=== PATIENT | male | born 1940 | race Caucasian/White ===

== ENCOUNTER 2019-04-24 00:31 | Day surgery (SDC) | payer MEDICARE, SELFPAY ==
[2019-04-04 09:52] VITALS: BMI 27.8
[2019-04-24] VITALS (9 sets, daily range): BP systolic 127–159; BP diastolic 69–79; PULSE 64–81; RESP 12–18; TEMP 36.4–37; O2SAT 96–100
--- NOTE | ~2019-04-24 | XR_ITS ---
EXAMINATION: XR surgery orthopedic DATE: 04/24/2019 09:02 INDICATION: Arthrodesis of right foot. TECHNIQUE: 3 intraoperative spot fluoroscopic views of right foot were obtained. I was not present. F luoroscopy exposure time was 16 seconds. COMPARISON: Right foot radiographs 06/02/2018 FINDINGS: There is been interval placement of a screw through first proximal and distal phalanges. Th ere are chronic changes of osteotomy of first proximal phalanx with staple. There are chronic changes of arthrodesis procedure of second proximal interphalangeal joint with instrumentation. There are ne w changes of arthrodesis procedure of fourth proximal interphalangeal joint with instrumentation. IMPRESSION: 1. New arthrodesis procedures of first interphalangeal joint and fourth proximal interphalangeal join t. 2. Chronic arthrodesis procedure of second proximal interphalangeal joint. Reviewed, dictated and finalized at location A. ROOM DANCE INSTRUCTOR IMPRESSION: 1. New arthrodesis procedures of first interphalangeal joint and fourth proxima l interphalangeal joint. 2. Chronic arthrodesis procedure of second proximal interphalangeal joint.
[2019-04-24] MEDS: LACTATED RINGERS 1,000 ML 30 ML IV CONT ×2 (06:46→09:13)
--- NOTE | 2019-04-24 06:46 | WPDANESEPPF ---
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 Patient Data Age: 78 Gender: M Height: 1.8 m Weight: 109.8 kg Allergies Allergy/AdvReac Type Severity Reaction Status Date / Time hydrocodone [From Vicodin] Allergy Mild BLOATING,NA Verified 04/24/19 06:15 SUEA Home Medications Medication Instructions Recorded Confirmed Type amlodipine 10 mg PO DAILY 04/04/19 04/24/19 History omeprazole magnesium [Prilosec OTC] 20 mg PO DAILY 04/04/19 04/24/19 History ECG: SINUS RHYTHM DELAYED PRECORDIAL R/S TRANSITION BORDERLINE ST-T WAVE ABNORMALITY- LATERAL LEADS BASELINE ARTIFACT- I, II, III, AVR, AVL, AVF, V6 BORDERLINE ECG Patient hx anesthesia problems: none Family hx anesthesia problems: none [facility] Past Medical History Medical History (Updated 04/23/19 @ 14:00 by Lobo Capone DO) GERD (gastroesophageal reflux disease) Hypertension Social History Social History Smoking status: Never smoker Alcohol intake: current Anes - Eval Final PreProcedure Day of Procedure 04/24/19 06:46 Patient weight: obese Heart: regular rate and rhythm Lungs: clear to auscultation and normal air movement Airway: Mallampati scale class III Neurological: alert and oriented Last oral intake: >/= 8 hours ASA classification: III Emergent: no Anesthetic plan: proceed Anesthesia type and monitoring: general LMA and standard monitoring Informed Consent: The patient's anesthetic plan and its attendant risks and benefits were discussed with the patient/family/POA. Questions were solicited and answers provided to the satisfaction of the patient/family/POA.
[2019-04-24] MEDS: IBUPROFEN IV 800 MG/200 ML 800 MG/200 ML BAG 400 MG IVPB (06:47)
--- NOTE | 2019-04-24 07:21 | WPDHPUPDATE1 ---
History and Physical Update Update Date/Time: 04/24/19 07:21 History and Physical has been reviewed, including an updated exam of the patient. There are NO changes in the patient's condition. Risks, benefits, and alternatives have been discussed and questions answered. Patient agrees to proceed with procedure.
[2019-04-24] MEDS: ceFAZolin 2 GM/D5W 50 ML 2 GM/50 ML BAG IVPB (07:38)
--- NOTE | 2019-04-24 09:27 | P.OP_ITS ---
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 Informed consent given. Operative extremity marked. Patient received intravenous antibiotics. Patient brought to the operating room where underwent general anesthetic by anesthesia team. Positioned supine on operating room table. Time-out performed confirming the patient, site of the surgery and the plan. Right foot prepped and draped in usual sterile surgical fashion using ChloraPrep skin solution. Foot and ankle exsanguinated and calf tourniquet inflated to 225 mmHg. Curvilinear incision made over the hallux interphalangeal joint with a 15 blade knife. Hemostasis controlled electrocautery. Extensor tendon Z lengthened and dorsal capsulotomy performed. Interphalangeal joint pr epared with bone cutters and rongeur. Thorough irrigation. Joint reduced and provisionally pinned. Alignment checked with image intensification. Fixation achieved with a 4.0 mm fully threaded compression screw. Good fixation noted. Wound thoroughly irrigated. Alignment and placement of hardware checked with image intensification. Extensor tendon repaired with 000 Monocryl interrupted suture. Subcutaneous tissue repaired with 3 0 Monocryl interrupted suture and skin repaired 4 0 nylon interrupted suture. Fourth toe then addressed. Dorsal longitudinal incision made with 15 blade knife over the proximal interphalangeal joint. Hemostasis controlled with electrocautery. Dorsal capsulotomy performed in the medial and lateral collateral ligaments released. Joint prepared with bone cutter and rongeur or. Thorough irrigation done. Joint and reduced and fixed with the Arthrex Nitinol hammertoe implant. Size 14 mm used. Good fixation and alignment noted with image intensification. Wound irrigated and capsule closed with 3 Monocryl interrupted suture. Skin repaired with 4 nylon interrupted suture. Tourniquet released. Good capillary refill noted in the toes. Sterile dressing applied. Patient then woken from anesthesia, extubated and taken to the recovery room in stable condition. All sponge needle and instrument counts correct at the end the case. Implants: Arthrex 4.0 mm fully-threaded cannulated compression screw, 44 mm. Arthrex hammertoe implant, nitinol 14 mm. [facility] Surgeon: Robbie Gupta MD Worm Farmer: tiler's assistant Estimated blood loss (mL): 5 Drains: No Packing: No Pathology: none sent Complications: None Condition: stable Disposition: PACU
--- NOTE | 2019-04-24 10:17 | SUR.PHASEII ---
PHYSICAL THERAPY CALLED TO DO WALKER TRAINING WITH PATIENT.
--- NOTE | 2019-04-24 11:06 | SUR.PHASEII ---
PHYSICAL THERAPIST DILLON HERE TO INSTRUCT PT RE: WALKER.
== END 2019-04-24 11:30 | disposition home or self-care (01) ==
PROVIDERS: Visit Provider Orthopaedic Surgery
PROC: (CPT 28750; principal; 2019-04-24 07:30)
PROC: (CPT 28285; 2019-04-24 07:30)
DX: M20.5X1 Other deformities of toe(s) (acquired), right foot (principal); M20.41 Other hammer toe(s) (acquired), right foot; I10 Essential (primary) hypertension; K21.9 Gastro-esophageal reflux disease without esophagitis; E66.9 Obesity, unspecified; Z68.33 Body mass index [BMI] 33.0-33.9, adult
CPT/HCPCS: 28285; 28755; 12055; 76000; 97116; J0690; J1100; J1170; J1741; J2405; J2704; J3010; J7120

== ENCOUNTER 2020-03-22 10:37 | Emergency (ER) | payer MEDICARE, SELFPAY ==
[2020-03-22 10:49] VITALS: BP 172/79; PULSE 75; RESP 16; TEMP 36.8; O2SAT 96
--- NOTE | 2020-03-22 11:01 | ED.URI ---
HPI - URI/Sore Throat General Chief Complaint: Upper Respiratory Infection Stated Complaint: congestion/dizzy/eye irritation/runny nose Source: patient and RN notes reviewed Limitations: no limitations History of Present Illness HPI Narrative: The patient, a non-smoker/occ drinker, presents with drainage. Patient states he has a shorter, couple day history of bilateral eye drainage, associate with nasal congestion-which is associated with mild but, definite not unexpected loss of smell. No fever, S OB, significant cough, CP, V/D/dehydration, photophobia, foreign body, sore throat-he does have mild myalgias and headache with positional lightheadedness. He lives alone, and was recently traveling by a truck to [place]. Related Data Home Medications Medication Instructions Recorded Confirmed amlodipine 10 mg PO DAILY 04/04/19 03/22/20 omeprazole magnesium [Prilosec OTC] 20 mg PO DAILY 04/04/19 03/22/20 atorvastatin 10 mg PO DAILY 03/22/20 03/22/20 Allergies Allergy/AdvReac Type Severity Reaction Status Date / Time hydrocodone [From Vicodin] Allergy Mild BLOATING,NA Verified 06/03/19 08:36 BRIANNA Review of Systems Review of Systems: Narrative: General/Constitutional: No weight loss,fever Eyes: N0: Redness,discharge Ears/Nose/Throat: No: Epistaxis,ear discharge Respiratory: Denies: Hemoptysis Gastrointestinal: No Vomiting, Bleeding-rectal Skin: No Lumps, eruption Neurologic: No Focal Weakness,Sz Hematologic: Denies: Petechiae/Purpura Psychiatric: No: Suicida ideationl All Other Systems: Reviewed and Negative PMFSH Past Medical History Medical History (Updated 03/22/20 @ 12:08 by Radu Mcneil MD) GERD (gastroesophageal reflux disease) Hypertension Social History Social History Smoking status: Never smoker Alcohol intake: current Comments At time of signature, agree with nursing past medical, surgical, social and family history. There is no relevant family history pertinent to the presenting complaint Exam Narrative: Exam Narrative: General Appearance: Well appearing, Well nourished EYE: PERRLA, Conjunctiva injeted, bilateral Ears: Auditory canal normal, TM normal Nose: Rhinorrhea, Mucousal erythema Mouth/Throat: MM moist, Uvula midline, Pharyngeal erythema Neck: Supple, No adenopathy Respiratory: No respiratory distress, BS equal, CTA, decreased BS at bases with rare wheeze on forced expiration Cardiovascular: No JVD Musculoskeletal: Non tender, Normal strength Skin: Warm, Dry Neurological: A&O x3, CN II-XII intact Psychiatric: Normal mood, Normal affect Course Vital Signs Vital signs: Vital Signs Temperature 98.3 F 03/22/20 10:49 Pulse Rate 75 03/22/20 10:49 Respiratory Rate 16 03/22/20 10:49 Blood Pressure 172/79 H 03/22/20 10:49 Pulse Oximetry 96 03/22/20 10:49 Temperature 98.3 F 03/22/20 10:49 Pulse Rate 81 03/22/20 11:04 Respiratory Rate 16 03/22/20 10:49 Blood Pressure 167/72 H 03/22/20 11:04 Pulse Oximetry 96 03/22/20 10:49 MDM - URI/Sore Throat Lab Data Labs: Influenza A Screen Negative Reference Range: Negative Influenza B Screen Negative Reference Range: Negative Discharge Plan Discharge Clinical Impression: Influenza-like illness Conjunctivitis Qualifiers: Conjunctivitis type: acute Acute conjunctivitis type: unspecified Laterality: bilateral Qualified Code(s): H10.33 - Unspecified acute conjunctivitis, bilateral Patient Disposition: Home, Self-Care Condition: Stable Instructions: Antibiotic Form, Acute Bronchitis (ED) Prescriptions: New azithromycin 250 mg tablet See Rx Instructions .ROUTE .COMPLEX Qty: 6 RF: 0 codeine-guaifenesin 10-100 mg/5 mL liquid 7.5 ml PO Q6H PRN (Reason: cough) Qty: 118 RF: 0 sulf
[2020-03-22 11:02] VITALS: BP 183/67; PULSE 75
[2020-03-22 11:04] VITALS: BP 149/61; BP 167/72; PULSE 81
--- NOTE | 2020-03-22 11:47 | PC.NURSE ---
1050-When pt stood up to go to room from triage, he was very unsteady and legs weak. Pt had to lean against wall for a moment. Gait was more steady after a moment. Stand by assist given to patient and he was taken to room without incident.
== END 2020-03-22 11:29 | disposition home or self-care (01) ==
PROVIDERS: Emergency Provider Emergency Medicine; PCP Internal Medicine
DX: J11.1 Influenza due to unidentified influenza virus with other respiratory manifestations (principal); H10.33 Unspecified acute conjunctivitis, bilateral; Z20.828 Contact with and (suspected) exposure to other viral communicable diseases; K21.9 Gastro-esophageal reflux disease without esophagitis; I10 Essential (primary) hypertension
CPT/HCPCS: 87804; 99213; G0463

== ENCOUNTER 2020-03-22 11:26 | Outpatient (NON) | payer MEDICARE, SELFPAY ==
[2020-03-22 23:58] LABS: SARS-CoV-2 RNA PCR Positive
== END 2020-03-22 11:27 ==
PROVIDERS: PCP Internal Medicine; Visit Provider Emergency Medicine
DX: U07.1 COVID-19 (principal)
CPT/HCPCS: 87635; 87804; 99213; C9803; G0463; U0003

== ENCOUNTER 2020-03-23 16:37 | Inpatient (IN) | payer MEDICARE, SELFPAY ==
[2020-03-23] VITALS (9 sets, daily range): BP systolic 120–148; BP diastolic 68–90; PULSE 62–88; RESP 17–26; TEMP 37.9–38.1; O2SAT 92–96
--- NOTE | ~2020-03-23 | XR_ITS ---
EXAMINATION: XR chest 1V portable INDICATION: Cough and shortness of breath TECHNIQUE: Portable AP chest at 1749 hours COMPARISON: 03/08/2018 FINDINGS: There are minimal airspace opacities of the lung bases. No pleural effusion or pneumothorax is identified. The cardiomediastinal silhouette is normal. IMPRESSION: 1. Minimal bibasilar airspace opacities, consistent with atelectasis versus pneumonia. Reviewed, dictated and finalized at location A. PING ROOM CLEANER IMPRESSION: 1. Minimal bibasilar airspace opacities, consistent with atelectasis versus pne umonia.
--- NOTE | ~2020-03-23 | CT_ITS ---
EXAMINATION: CT brain wo con INDICATION: Weakness, fall COMPARISON: 05/28/2011 TECHNIQUE: Standard unenhanced head CT. The dose-length product (DLP) was 681.00 mGy-cm. The mA was a djusted according to patient size. Iterative reconstruction technique was employed. FINDINGS: There is no acute intraparenchymal hemorrhage. No evidence of mass lesion. No evidence of a cute infarction. There is mild periventricular and subcortical hypodensity probably related to small vessel ischemic disease. There is mild prominence of the sulci and ventricles related to cerebral atr ophy. Intracranial calcified cerebral atherosclerosis is noted. There are no extra-axial collections. There is no mass effect or midline shift. The orbits and soft tissues are unremarkable. There is ch ronic pansinusitis with slight improvement in the left maxillary sinus. Sinus surgical changes are ag ain noted. IMPRESSION: 1. No acute intracranial abnormality. 2. Chronic sinusitis. Reviewed, dictated and finalized at location A. R SALES ASSESSOR
--- NOTE | ~2020-03-23 | XR_ITS ---
EXAMINATION: XR chest 1V portable INDICATION: COVID 19 pneumonia TECHNIQUE: Portable AP chest at 1456 hours COMPARISON: 03/23/2020 FINDINGS: There are diffuse opacities in all lung zones with interval worsening. No pleural effusion or pneumothorax is identified. The cardiomediastinal silhouette is normal. IMPRESSION: 1. Diffuse lung disease with interval worsening, consistent with pneumonia and/or pulmonary edema and /or acute respiratory distress syndrome (ARDS). Reviewed, dictated and finalized at location A. REMOVER IMPRESSION: 1. Diffuse lung disease with interval worsening, consistent with pneumonia and/ or pulmonary edema and/or acute respiratory distress syndrome (ARDS).
--- NOTE | 2020-03-23 17:29 | ED.SOB ---
HPI - SOB/Dyspnea General Chief Complaint: Shortness of Breath/Dyspnea Stated Complaint: SOB covid + swab past 48-72 hours Time Seen by Provider: 03/23/20 17:05 Source: patient and EMS Mode of arrival: EMS Limitations: no limitations History of Present Illness HPI Narrative: Patient is a 79-year-old male who presents for evaluation of weakness in the setting of recent coronavirus diagnosis. Patient reports he has had cough without shortness of breath or chest pain. He reports weakness and that he fell today when he lost his balance. He states he is having trouble walking. He has been tolerating oral intake. He has lost his sense of taste. Patient reports fever, denies chills. He reports myalgias. He denies any abdominal pain, diarrhea. Pt denies hitting his head. He denies any current chest pain, shortness of breath or prodromal type symptoms prior to the fall. Related Data Home Medications Medication Instructions Recorded Confirmed amlodipine 10 mg PO DAILY 04/04/19 03/22/20 omeprazole magnesium [Prilosec OTC] 20 mg PO DAILY 04/04/19 03/22/20 atorvastatin 10 mg PO DAILY 03/22/20 03/22/20 Allergies Allergy/AdvReac Type Severity Reaction Status Date / Time hydrocodone [From Vicodin] Allergy Mild BLOATING,NA Verified 06/03/19 08:36 BRIANNA Review of Systems Review of Systems: Narrative: CONSTITUTIONAL: Reports intermittent fever and chills EYES: Denies visual changes, redness, or discharge. ENT: Reports rhinorrhea and congestion CARDIOVASCULAR: Denies chest pain, palpitations, or edema. RESPIRATORY: Denies cough or dyspnea. GASTROINTESTINAL: Denies abdominal pain, nausea, vomiting, or diarrhea. GENITOURINARY: Denies dysuria or hematuria. SKIN: Denies rash or itching. MUSCULOSKELETAL: Denies back pain, joint pain, reports myalgias NEUROLOGIC: Denies headache, numbness, reports feeling diffusely weak PMFSH Past Medical History Medical History (Updated 03/23/20 @ 22:11 by Diana Garay MD) GERD (gastroesophageal reflux disease) Hypertension Social History Social History Smoking status: Never smoker Alcohol intake: current Exam Narrative: Exam Narrative: GENERAL: Awake, alert, conversant HEAD: Normocephalic, atraumatic. EYES: PERRLA and EOMI. ENT: Nares clear, no rhinorrhea or epistaxis. Mucous membranes moist. NECK: Supple. CHEST: No respiratory distress, breathing even and non labored, coarse respirations bilaterally HEART: Regular rate, sinus rhythm ABDOMEN:Non distended, non tender EXTREMITIES: Normal range of motion. No edema. SKIN: Warm, dry, no rash. NEURO:No focal deficits. Alert and oriented x3 Course Vital Signs Vital signs: Vital Signs Temperature 37.9 C H 03/23/20 16:52 Pulse Rate 88 03/23/20 16:52 Respiratory Rate 22 H 03/23/20 16:52 Blood Pressure 148/90 H 03/23/20 16:52 Pulse Oximetry 92 03/23/20 16:52 Temperature 38.1 C H 03/23/20 17:06 Pulse Rate 88 03/23/20 20:32 Respiratory Rate 19 03/23/20 20:00 Blood Pressure 148/90 H 03/23/20 16:52 Pulse Oximetry 96 03/23/20 20:00 MDM - SOB/Dyspnea MDM Narrative Medical decision making narrative: Patient presented for evaluation of weakness, fall today in the setting of Covid. At the time of initial assessment, ABCs are intact and vital signs are notable for mild tachypnea, borderline hypoxemia, patient is febrile. Laboratory results are reassuring. No severe electrolyte derangement. Patient is lymphopenic. No acute kidney injury. Evidence of bilateral viral pneumonia on chest x-ray, this does not warrant any antibiotics. Try to ambulate patient in the emergency department and patient required assistance with both attempts. He is quite unsteady on his feet. I discussed with patient discharged home and he has no family or friend that is able to stay and assist him. At this point from a respiratory standpoint he he is not requiring any supplemen
[2020-03-23 17:45] LABS: Basophils Percent Auto 0.5 % (0.2-1.2); Eosinophils Absolute Auto 0.1 K/mm3 (0-0.3); Eosinophils Percent Auto 0.7 % (0-4.4); Hematocrit 43.2 % (42.0-52.0); Hemoglobin 14.8 g/dL (14.0-18.0); Immature Granulocyte Absolute 0.03 K/mm3 (0.00-0.031); Immature Granulocyte Percent A 0.3 % (0-0.5); Lymphocytes Absolute Auto 0.79 K/mm3 (0.9-3.2); Lymphocytes Percent Auto 9.1 % (18.3-44.2); Mean Corpuscular HGB Conc 34.3 g/dl (32-36); Mean Corpuscular Hemoglobin 29.7 pg (26-34); Mean Corpuscular Volume 86.6 fl (80-100); Mean Platelet Volume 9.7 fl (7.4-10.4); Monocytes Absolute Auto 0.8 K/mm3 (0.1-0.6); Monocytes Percent Auto 9.4 % (2.6-8.5); Neutrophils Absolute Auto 6.9 K/mm3 (1.3-6.7); Platelet Count Result 201 k/mm3 (150-375); Red Blood Count 4.99 M/mm3 (4.6-6.20); Red Cell Distribution Width 12.5 % (11.5-14.5); White Blood Count 8.7 K/mm3 (4.5-10.0)
[2020-03-23 17:54] LABS: Alanine Aminotransferase 27 U/L (4-50); Albumin Level 4.3 g/dL (3.5-5.1); Alkaline Phosphatase 74 U/L (38-126); Anion Gap 5 mmol/L (8-16); Aspartate Amino Transferase 24 U/L (17-59); Blood Urea Nitrogen 18 mg/dL (9-20); Calcium 9.4 mg/dL (8.4-10.2); Carbon Dioxide 29 mmol/L (22-30); Chloride 100 mmol/L (98-107); Estimated Glomerular Filt Rate > 60; Glucose 115 mg/dL (75-110); Sodium 134 mmol/L (137-145)
[2020-03-23] MEDS: ACETAMINOPHEN 500 MG TABLET 1000 MG PO (18:21)
[2020-03-23 18:33] LABS: CRP 1.2 mg/dL (<1.0); Creatine Kinase 76 U/L (55-170)
[2020-03-23 18:42] LABS: Troponin I < 0.012 ng/mL (0.000-0.034)
--- NOTE | 2020-03-23 19:04 | PC.NURSE ---
patient resting on stretcher. additional labs drawn. waiting for all tests to be resulted. alert and oriented. wants to rest. feel frustrated that he feels foggy and weak.
--- NOTE | 2020-03-23 19:11 | PC.NURSE ---
patient's tests all resulted. will ask for urine specimen. waiting for further orders from provider vs disposition.
[2020-03-23 19:14] LABS: Prothrombin Time 14.1 Seconds (11.1-14.7)
[2020-03-23 19:15] LABS: Partial Thromboplastin Time 26.4 SECONDS (22.3-36.8)
--- NOTE | 2020-03-23 19:53 | PC.NURSE ---
patient reminded we need a urine specimen soon or we have to straight cath him. c/o back pain from stretcher. patient stood at bedside. bed changed. blanket under patient with sheet. back in bed. placed back on monitors. new warm blanket given. patient advised he has 10 minutes to provide urine. verbalizes understanding. has call light in reach. side rails up x 2.
--- NOTE | 2020-03-23 20:44 | PC.NURSE ---
resting on stretcher. straight cath done. urine pending.
[2020-03-23 20:46] LABS: Add Urine Microscopic? YES; Appearance Urine Clear (Clear); Bilirubin Urine Negative (Negative); Blood Urine Negative (Negative); Color Urine Yellow (Yellow); Glucose Urine UA Negative (Negative); Ketones Urine Negative (Negative); Leukocyte Esterase Ur Negative LEU/UL (Negative); Mucus Urine Rare /lpf; Nitrate Urine Negative (Negative); Protein Urine 1+ mg/dL (Negative); RBC Urine 0-2 /hpf (0-2); Specific Grav Ur 1.023 (1.001-1.035); WBC Urine 0-3 /hpf
--- NOTE | 2020-03-23 22:22 | PC.NURSE ---
additional orders placed. patient to be admitted for increased weakness and Covid pneumonia. lives alone. patient will be put back on phototypesetting equipment monitor. keeps removing.
--- NOTE | 2020-03-23 22:24 | ECG_ITS ---
Measurements Intervals [place] Rate: 66 P: 82 PA: 179 QRS: 3 QRSD: 109 T: 33 QT: 366 QTc: 384 Interpretive Statements SINUS RHYTHM NONSPECIFIC T-WAVE ABNORMALITY- HIGH LATERAL LEADS BASELINE ARTIFACT- I, II, AVR, AVF, V1, V3 BORDERLINE ECG Electronically Signed On 03-24-2020 7:02:44 ECONOMIC RESEARCH ANALYST by Nestor Lai D.O.
--- NOTE | 2020-03-23 22:35 | PC.NURSE ---
patient medicated. placed back on monitor. patient given lunch box.
[2020-03-24] VITALS (9 sets, daily range): BP systolic 125–149; BP diastolic 55–63; PULSE 64–67; RESP 18–20; TEMP 36.1–37; O2SAT 94–100; BMI 32.8
--- NOTE | 2020-03-24 00:03 | ADMGEN ---
This patient, Ivan Oconnor, was admitted to [facility] Surg Room 330-01. Patient/family oriented to hospital policies and general routines including ID bracelet, bed and alarms, visiting hours, pain management, procedures, bathroom and other care routines, personal items, smoking policy, room service/diet, and visiting hours. Information on how to activate the Rapid Response Team has been discussed. Patient/Family are encouraged to report perceived risks to care and to ask questions if they do not understand what they are told or what they should do.
--- NOTE | 2020-03-24 00:15 | PM.IMHP ---
H&P: HPI History of Present Illness Date/Time: 03/24/20 00:15 Chief complaint: Weakness, Covid 19 viral pneumonia Narrative: This is a pleasant 79 year old male with known history of HTN, GERD, and hyperlipidemia who is known to live alone and presented to the hospital with a complaint of generalized weakness. He was just diagnosed with COVID-19 two days ago. Since then he has had a sporadic dry cough and mild shortness of breath. He did fall yesterday. He did not lose consciousness or suffer head trauma. Associated symptoms include fever, myalgias, and diarrhea. He has not had any nausea, vomiting, dysuria, hematuria, rectal bleeding, or LE edema. In the ER tonight the patient has required to be put on 1L of oxygen via NC to maintain his sats. No other complaints. Review of Systems Review of Systems: All systems reviewed & are unremarkable except as noted in HPI and below PMFSH Past Medical History Medical History GERD (gastroesophageal reflux disease) Hypertension Family History Family History Unknown Unknown family medical history Social History Social History Smoking status: Never smoker Alcohol intake: current Drinks per week: 5 Substance use: never Substance use type: does not use Gender identity (if verbalized by the patient): Male Spiritual care concerns: No Comments past surgical history reviewed and noncontributory. Meds Home Medications and Allergies Home Medications Medication Instructions Recorded Confirmed Type amlodipine 10 mg PO DAILY 04/04/19 03/24/20 History omeprazole magnesium [Prilosec OTC] 20 mg PO DAILY 04/04/19 03/24/20 History albuterol sulfate [Ventolin HFA] 2 puff INHALATION QID PRN #8.5 gm 03/22/20 03/24/20 Rx atorvastatin 10 mg PO DAILY 03/22/20 03/24/20 History codeine-guaifenesin 7.5 ml PO Q6H PRN #118 ml 03/22/20 03/24/20 Rx sulfacetamide sodium [Bleph-10] 2 drp OPHTHALMIC (EYE) Q4H #5 ml 03/22/20 03/24/20 Rx acetaminophen [Mapap 650 mg PO Q4H PRN 30 Days tablet 04/01/20 Rx (acetaminophen)] dexamethasone 6 mg PO DAILY #5 tablet 04/01/20 Rx Allergies Allergy/AdvReac Type Severity Reaction Status Date / Time hydrocodone [From Vicodin] Allergy Mild BLOATING,NA Verified 03/24/20 01:01 SUEA Vital Signs Vital Signs - 24 hr 03/23/20 16:52 03/23/20 17:06 03/23/20 17:41 Temperature 37.9 C H 38.1 C H Pulse Rate 88 Respiratory Rate 22 H Blood Pressure 148/90 H Pulse Oximetry 92 96 03/23/20 19:57 03/23/20 20:00 03/23/20 20:27 Temperature Pulse Rate 68 66 62 Respiratory Rate 19 19 Blood Pressure Pulse Oximetry 96 96 03/23/20 20:32 03/23/20 22:33 03/23/20 23:18 Temperature Pulse Rate 88 79 66 Respiratory Rate 26 H 17 Blood Pressure 120/68 Pulse Oximetry 93 03/24/20 00:05 Temperature Pulse Rate Respiratory Rate Blood Pressure Pulse Oximetry 94 Exam Const: General: cooperative, healthy appearing, no acute distress, alert and awake Nutritional Appearance: well nourished Orientation/consciousness: patient oriented x3 HENMT: Head: normal to inspection General nose exam: Normal external nose present Face and sinus: normal facial exam Mouth: Yes Normal oral and palatal mucosa present and Yes oropharynx normal Eyes: Pupils: Equal, round and reactive pupils present EOM: EOMs intact bilaterally Neck: Neck: supple and no JVD Thyroid: thyroid normal Lymphatic: lymphadenopathy not noted Resp: Effort & Inspection: normal respiratory effort Auscultation: clear to auscultation bilaterally Cardio: Rate: regular rate Rhythm: regular rhythm Heart sounds: no murmurs GI: Inspection: normal to inspection Auscultation: normal bowel sounds Skin: General skin exam: normal color and no rashes or lesions noted Neuro: General: patient or
[2020-03-24] MEDS: ENOXAPARIN 40 MG/0.4 ML SYRINGE SUB-Q ×2 (09:56→20:26)
--- NOTE | 2020-03-24 17:01 | PM.IMPN ---
Progress Note: A&P Assessment and Plan (1) Weakness: Code(s): R53.1 - Weakness Status: Acute Assessment and Plan: Likely secondary to deconditioning. The patient has been placed in observation status. 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 and was tested for COVID-19 2 days ago prior to coming to emergency depart and he was positive, he came to emergency department because he had fell, chest x-ray was done in the ER showed possibly pneumonia and CT scan of the head was negative for any acute injury, emergency department patient was desaturating at 88% on room air and patient was started on 1 L of oxygen however currently is requiring 3 L, denies any fever or chills, patient was started on dexamethasone from ER, start the patient on Zithromax and Rocephin for possible pneumonia will continue to monitor (2) COVID-19: Code(s): U07.1 - COVID-19 Status: Acute Assessment and Plan: Plan is above (3) Fall: Qualifiers: Encounter type: initial encounter Qualified Code(s): W19.XXXA - Unspecified fall, initial encounter Code(s): W19.XXXA - Unspecified fall, initial encounter Status: Acute Assessment and Plan: Will have a PT OT evaluate the patient (4) GERD (gastroesophageal reflux disease): Qualifiers: Esophagitis presence: esophagitis presence not specified Qualified Code(s): K21.9 - Gastro-esophageal reflux disease without esophagitis Code(s): K21.9 - Gastro-esophageal reflux disease without esophagitis Status: Acute Assessment and Plan: Will continue PPI (5) Hypertension: Qualifiers: Hypertension type: unspecified Qualified Code(s): I10 - Essential (primary) hypertension Code(s): I10 - Essential (primary) hypertension Status: Acute Assessment and Plan: Continue home regimen and monitor (6) Hypoxia: Code(s): R09.02 - Hypoxemia Status: Acute Assessment and Plan: Currently patient is on 3 L oxygen most likely secondary to pneumonia and COVID-19 will monitor Subjective Date/time seen: 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 and was tested for COVID-19 2 days ago prior to coming to emergency depart and he was positive, he came to emergency department because he had fell, chest x-ray was done in the ER showed possibly pneumonia and CT scan of the head was negative for any acute injury, emergency department patient was desaturating at 88% on room air and patient was started on 1 L of oxygen however currently is requiring 3 L, denies any fever or chills, patient was started on dexamethasone from ER, start the patient on Zithromax and Rocephin for possible pneumonia will continue to monitor Review of Systems Review of Systems: All systems reviewed & are unremarkable except as noted in HPI and below Exam Narrative: Exam Narrative: Patient is comfortable, NAD HEENT: eyes are clear and none icteric LUNGS: Normal respiratory effort ABD: Moderately obese distended Lower extremities: no edema SKIN: nonjaundiced Neuro: grossly intact. Objective Data Vital Signs Vital Signs: Vital Signs - 24 hr 03/23/20 17:06 03/23/20 17:41 03/23/20 19:57 Temperature 100.6 F H Pulse Rate 68 Respiratory Rate 19 Blood Pressure Pulse Oximetry 96 96 03/23/20 20:00 03/23/20 20:27 03/23/20 20:32 Temperature Pulse Rate 66 62 88 Respiratory Rate 19 Blood Pressure Pulse Oximetry 96 03/23/20 22:33 03/23/20 23:18 03/24/20 00:05 Temperature Pulse Rate 79 66 Respiratory Rate 26 H 17 Blood Pressure 120/68 Pulse Oximetry 93 94 03/24/20 00:10 03/24/20 00:21 03/24/20 06:00 Temperature 98.6 F 97 F L Pulse Rate 65 67 Respiratory Rate 18 20 Blood Pressure 127/55 L 149/58 H Pulse Oximetry
[2020-03-25] VITALS (8 sets, daily range): BP systolic 130–148; BP diastolic 57–90; PULSE 63–75; RESP 14–20; TEMP 36.1–37; O2SAT 90–100
[2020-03-25 08:15] LABS: Basophils Percent Auto 0.2 % (0.2-1.2); Immature Granulocyte Absolute 0.02 K/mm3 (0.00-0.031); Immature Granulocyte Percent A 0.2 % (0-0.5); Lymphocytes Absolute Auto 0.79 K/mm3 (0.9-3.2); Lymphocytes Percent Auto 8.7 % (18.3-44.2); Mean Corpuscular HGB Conc 34.1 g/dl (32-36); Mean Corpuscular Hemoglobin 30.1 pg (26-34); Mean Corpuscular Volume 88.4 fl (80-100); Mean Platelet Volume 9.6 fl (7.4-10.4); Monocytes Absolute Auto 0.6 K/mm3 (0.1-0.6); Monocytes Percent Auto 6.4 % (2.6-8.5); Neutrophils Absolute Auto 7.6 K/mm3 (1.3-6.7); Neutrophils Percent Auto 84.5 % (45.5-73.1); Platelet Count Result 213 k/mm3 (150-375); Red Blood Count 4.98 M/mm3 (4.6-6.20); Red Cell Distribution Width 12.5 % (11.5-14.5); White Blood Count 9.1 K/mm3 (4.5-10.0)
[2020-03-25 08:27] LABS: Alanine Aminotransferase 33 U/L (4-50); Alkaline Phosphatase 69 U/L (38-126); Anion Gap 7 mmol/L (8-16); Aspartate Amino Transferase 27 U/L (17-59); Bilirubin,Total 0.5 mg/dL (0.2-1.3); Blood Urea Nitrogen 21 mg/dL (9-20); Carbon Dioxide 30 mmol/L (22-30); Chloride 99 mmol/L (98-107); Estimated CRCL calculation 57 ml/min; Estimated Glomerular Filt Rate 59; Glucose 123 mg/dL (75-110); Potassium 3.8 mmol/L (3.4-5.0); Sodium 136 mmol/L (137-145)
[2020-03-25] MEDS: ENOXAPARIN 40 MG/0.4 ML SYRINGE SUB-Q ×2 (09:34→20:00)
[2020-03-25] MEDS: ATORVASTATIN 10 MG TABLET PO (09:34)
[2020-03-25] MEDS: amLODIPine BESYLATE 5 MG TABLET 10 MG PO (09:34)
[2020-03-25] MEDS: PANTOPRAZOLE 40 MG TABLET PO (09:35)
--- NOTE | 2020-03-25 16:57 | PM.IMPN ---
Progress Note: A&P Assessment and Plan (1) Weakness: Code(s): R53.1 - Weakness Status: Acute Assessment and Plan: Likely secondary to deconditioning. The patient has been placed in observation status. 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 and was tested for COVID-19 2 days ago prior to coming to emergency depart and he was positive, he came to emergency department because he had fell, chest x-ray was done in the ER showed possibly pneumonia and CT scan of the head was negative for any acute injury, emergency department patient was desaturating at 88% on room air and patient was started on 1 L of oxygen however currently is requiring 3 L, denies any fever or chills, patient was started on dexamethasone from ER, start the patient on Zithromax and Rocephin for possible pneumonia will continue to monitor, today patient remains clinically stable he does not have any fever and only requiring 3 L of oxygen, will repeat x-ray tomorrow in the morning, if there is no worsening of the x-ray, no fever patient does not require any more oxygen than 3-5 L will do the home O2 eval and possibly discharge the patient tomorrow (2) COVID-19: Code(s): U07.1 - COVID-19 Status: Acute Assessment and Plan: Plan is above (3) Fall: Qualifiers: Encounter type: initial encounter Qualified Code(s): W19.XXXA - Unspecified fall, initial encounter Code(s): W19.XXXA - Unspecified fall, initial encounter Status: Acute Assessment and Plan: Will have a PT OT evaluate the patient (4) GERD (gastroesophageal reflux disease): Qualifiers: Esophagitis presence: esophagitis presence not specified Qualified Code(s): K21.9 - Gastro-esophageal reflux disease without esophagitis Code(s): K21.9 - Gastro-esophageal reflux disease without esophagitis Status: Acute Assessment and Plan: Will continue PPI (5) Hypertension: Qualifiers: Hypertension type: unspecified Qualified Code(s): I10 - Essential (primary) hypertension Code(s): I10 - Essential (primary) hypertension Status: Acute Assessment and Plan: Continue home regimen and monitor (6) Hypoxia: Code(s): R09.02 - Hypoxemia Status: Acute Assessment and Plan: Currently patient is on 3 L oxygen most likely secondary to pneumonia and COVID-19 will monitor Subjective Date/time seen: 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 and was tested for COVID-19 2 days ago prior to coming to emergency depart and he was positive, he came to emergency department because he had fell, chest x-ray was done in the ER showed possibly pneumonia and CT scan of the head was negative for any acute injury, emergency department patient was desaturating at 88% on room air and patient was started on 1 L of oxygen however currently is requiring 3 L, denies any fever or chills, patient was started on dexamethasone from ER, start the patient on Zithromax and Rocephin for possible pneumonia will continue to monitor, today patient remains clinically stable he does not have any fever and only requiring 3 L of oxygen, will repeat x-ray tomorrow in the morning, if there is no worsening of the x-ray, no fever patient does not require any more oxygen than 3-5 L will do the home O2 eval and possibly discharge the patient tomorrow Review of Systems Review of Systems: All systems reviewed & are unremarkable except as noted in HPI and below Exam Narrative: Exam Narrative: Patient is comfortable, NAD HEENT: eyes are clear and none icteric LUNGS: Normal respiratory effort ABD: Moderately obese distended Lower extremities: no edema SKIN: nonjaundiced Neuro: grossly intact. Objective Data Vital Signs Vital Signs: Vital Signs - 24 hr 03/24/20
[2020-03-26] VITALS (13 sets, daily range): BP systolic 113–144; BP diastolic 44–59; PULSE 64–86; RESP 18–22; TEMP 36.2–37.2; O2SAT 82–94
[2020-03-26 06:33] LABS: Basophils Percent Auto 0.3 % (0.2-1.2); Eosinophils Percent Auto 0.3 % (0-4.4); Hematocrit 41.6 % (42.0-52.0); Hemoglobin 14.3 g/dL (14.0-18.0); Immature Granulocyte Absolute 0.03 K/mm3 (0.00-0.031); Immature Granulocyte Percent A 0.4 % (0-0.5); Lymphocytes Absolute Auto 0.88 K/mm3 (0.9-3.2); Lymphocytes Percent Auto 12.1 % (18.3-44.2); Mean Corpuscular HGB Conc 34.4 g/dl (32-36); Mean Corpuscular Volume 87.4 fl (80-100); Mean Platelet Volume 9.5 fl (7.4-10.4); Monocytes Absolute Auto 0.7 K/mm3 (0.1-0.6); Monocytes Percent Auto 9.9 % (2.6-8.5); Neutrophils Absolute Auto 5.6 K/mm3 (1.3-6.7); Platelet Count Result 182 k/mm3 (150-375); Red Blood Count 4.76 M/mm3 (4.6-6.20); Red Cell Distribution Width 12.2 % (11.5-14.5); White Blood Count 7.3 K/mm3 (4.5-10.0)
[2020-03-26 06:55] LABS: Potassium 3.7 mmol/L (3.4-5.0)
[2020-03-26 06:58] LABS: Alanine Aminotransferase 49 U/L (4-50); Albumin Level 3.6 g/dL (3.5-5.1); Alkaline Phosphatase 67 U/L (38-126); Anion Gap 7 mmol/L (8-16); Aspartate Amino Transferase 36 U/L (17-59); Bilirubin,Total 0.7 mg/dL (0.2-1.3); Blood Urea Nitrogen 19 mg/dL (9-20); Calcium 8.5 mg/dL (8.4-10.2); Carbon Dioxide 28 mmol/L (22-30); Chloride 99 mmol/L (98-107); Estimated CRCL calculation 68 ml/min; Estimated Glomerular Filt Rate > 60; Glucose 121 mg/dL (75-110); Sodium 134 mmol/L (137-145)
[2020-03-26] MEDS: ATORVASTATIN 10 MG TABLET PO (09:57)
[2020-03-26] MEDS: ENOXAPARIN 40 MG/0.4 ML SYRINGE SUB-Q ×2 (09:57→20:12)
[2020-03-26] MEDS: PANTOPRAZOLE 40 MG TABLET PO (09:57)
[2020-03-26] MEDS: amLODIPine BESYLATE 5 MG TABLET 10 MG PO (09:57)
--- NOTE | 2020-03-26 15:06 | HOMEO2EVAL ---
Home Oxygen Evaluation RC: Home Oxygen (O2) Evaluation Start: 03/26/20 09:32 Freq: ONCE Status: Active Protocol: RPE Activity Type Activity Date Activity User E-Sign Co-Sign Detail Recorded Client Recorded Date Recorded By Document 03/26/20 13:00 [email or web address] [email or web address] 03/26/20 15:00 DJO Document 03/26/20 13:03 [email or web address] [email or web address] 03/26/20 15:00 DJO Document 03/26/20 13:05 [email or web address] [email or web address] 03/26/20 15:00 DJO Document 03/26/20 13:08 [email or web address] [email or web address] 03/26/20 15:00 DJO Document 03/26/20 13:10 [email or web address] [email or web address] 03/26/20 15:00 DJO Document 03/26/20 13:15 [email or web address] [email or web address] 03/26/20 15:00 DJO 03/26/20 03/26/20 03/26/20 13:00 13:03 13:05 Home O2 Evaluation Test Phase Resting Resting Exercise Oxygen Delivery Room Air Nasal Cannula Nasal Cannula Oxygen Flow Rate (L/min) 1 1 Pulse Oximetry (90-100 %) 87 L 91 82 L Home Oxygen Evaluation Comments Treatment Charges O2 Evaluation 03/26/20 03/26/20 03/26/20 13:08 13:10 13:15 Home O2 Evaluation Test Phase Exercise Exercise Resting Oxygen Delivery Nasal Cannula Nasal Cannula Nasal Cannula Oxygen Flow Rate (L/min) 2 3 3 Pulse Oximetry (90-100 %) 87 L 90 92 Home Oxygen Evaluation Comments PT REQUAIRES 1 L REST AND 3L EXERTION Treatment Charges
--- NOTE | 2020-03-26 15:06 | PCRCNOTE ---
HOME O2 EVAL COMPLETED. PT REQUIRES 1 L REST AND 3 L WITH EXERTION. WILL BRING A TANK FOR TRANSPORT HOME. PT TO CALL [facility] WHEN HE ARRIVES HOME.
--- NOTE | 2020-03-26 17:53 | PM.IMPN ---
Progress Note: A&P Assessment and Plan (1) Weakness: Code(s): R53.1 - Weakness Status: Acute Assessment and Plan: Likely secondary to deconditioning. The patient has been placed in observation status. 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 and was tested for COVID-19 2 days ago prior to coming to emergency depart and he was positive, he came to emergency department because he had fell, chest x-ray was done in the ER showed possibly pneumonia and CT scan of the head was negative for any acute injury, emergency department patient was desaturating at 88% on room air and patient was started on 1 L of oxygen however currently is requiring 3 L, denies any fever or chills, patient was started on dexamethasone from ER, start the patient on Zithromax and Rocephin for possible pneumonia will continue to monitor, today patient remains clinically stable he does not have any fever and only requiring 3 L of oxygen, today patient clinically symptoms remained stable with no fever and requiring only 3 L of oxygen however patient is quite weak and difficult to ambulate patient lives home alone, will continue PT OT, will continue to monitor and further recommendation to follow (2) COVID-19: Code(s): U07.1 - COVID-19 Status: Acute Assessment and Plan: Plan is above (3) Fall: Qualifiers: Encounter type: initial encounter Qualified Code(s): W19.XXXA - Unspecified fall, initial encounter Code(s): W19.XXXA - Unspecified fall, initial encounter Status: Acute Assessment and Plan: Will have a PT OT evaluate the patient (4) GERD (gastroesophageal reflux disease): Qualifiers: Esophagitis presence: esophagitis presence not specified Qualified Code(s): K21.9 - Gastro-esophageal reflux disease without esophagitis Code(s): K21.9 - Gastro-esophageal reflux disease without esophagitis Status: Acute Assessment and Plan: Will continue PPI (5) Hypertension: Qualifiers: Hypertension type: unspecified Qualified Code(s): I10 - Essential (primary) hypertension Code(s): I10 - Essential (primary) hypertension Status: Acute Assessment and Plan: Continue home regimen and monitor (6) Hypoxia: Code(s): R09.02 - Hypoxemia Status: Acute Assessment and Plan: Currently patient is on 3 L oxygen most likely secondary to pneumonia and COVID-19 will monitor Subjective Date/time seen: 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 and was tested for COVID-19 2 days ago prior to coming to emergency depart and he was positive, he came to emergency department because he had fell, chest x-ray was done in the ER showed possibly pneumonia and CT scan of the head was negative for any acute injury, emergency department patient was desaturating at 88% on room air and patient was started on 1 L of oxygen however currently is requiring 3 L, denies any fever or chills, patient was started on dexamethasone from ER, start the patient on Zithromax and Rocephin for possible pneumonia will continue to monitor, today patient remains clinically stable he does not have any fever and only requiring 3 L of oxygen, today patient clinically symptoms remained stable with no fever and requiring only 3 L of oxygen however patient is quite weak and difficult to ambulate patient lives home alone, will continue PT OT, will continue to monitor and further recommendation to follow Review of Systems Review of Systems: All systems reviewed & are unremarkable except as noted in HPI and below Exam Narrative: Exam Narrative: Patient is comfortable, NAD HEENT: eyes are clear and none icteric LUNGS: Normal respiratory effort ABD: Moderately obese distended Lower extremities: no edema SKIN: nonjaundiced
[2020-03-27] VITALS: BP 157/58; PULSE 77; RESP 22; TEMP 37.7; O2SAT 91
[2020-03-27 04:00] VITALS: BP 125/47; PULSE 75; RESP 22; TEMP 36.9; O2SAT 90
[2020-03-27 07:50] LABS: Basophils Percent Auto 0.2 % (0.2-1.2); Eosinophils Percent Auto 0.1 % (0-4.4); Hematocrit 39.8 % (42.0-52.0); Hemoglobin 13.8 g/dL (14.0-18.0); Immature Granulocyte Absolute 0.04 K/mm3 (0.00-0.031); Immature Granulocyte Percent A 0.5 % (0-0.5); Lymphocytes Absolute Auto 0.88 K/mm3 (0.9-3.2); Lymphocytes Percent Auto 10.7 % (18.3-44.2); Mean Corpuscular HGB Conc 34.7 g/dl (32-36); Mean Corpuscular Hemoglobin 29.5 pg (26-34); Mean Platelet Volume 9.9 fl (7.4-10.4); Monocytes Absolute Auto 0.6 K/mm3 (0.1-0.6); Monocytes Percent Auto 6.8 % (2.6-8.5); Neutrophils Absolute Auto 6.7 K/mm3 (1.3-6.7); Neutrophils Percent Auto 81.7 % (45.5-73.1); Platelet Count Result 192 k/mm3 (150-375); Red Blood Count 4.68 M/mm3 (4.6-6.20); Red Cell Distribution Width 11.9 % (11.5-14.5); White Blood Count 8.2 K/mm3 (4.5-10.0)
[2020-03-27 08:00] VITALS: BP 131/58; PULSE 71; RESP 18; TEMP 36.8; O2SAT 90
[2020-03-27] MEDS: amLODIPine BESYLATE 5 MG TABLET 10 MG PO (08:09)
[2020-03-27 08:10] LABS: Alanine Aminotransferase 42 U/L (4-50); Albumin Level 3.5 g/dL (3.5-5.1); Alkaline Phosphatase 64 U/L (38-126); Anion Gap 5 mmol/L (8-16); Aspartate Amino Transferase 32 U/L (17-59); Bilirubin,Total 0.8 mg/dL (0.2-1.3); Blood Urea Nitrogen 18 mg/dL (9-20); Calcium 8.3 mg/dL (8.4-10.2); Carbon Dioxide 30 mmol/L (22-30); Chloride 96 mmol/L (98-107); Estimated CRCL calculation 57 ml/min; Estimated Glomerular Filt Rate 59; Glucose 121 mg/dL (75-110); Potassium 3.6 mmol/L (3.4-5.0); Sodium 131 mmol/L (137-145)
[2020-03-27] MEDS: PANTOPRAZOLE 40 MG TABLET PO (08:10)
[2020-03-27] MEDS: ENOXAPARIN 40 MG/0.4 ML SYRINGE SUB-Q ×2 (08:10→19:52)
[2020-03-27] MEDS: ATORVASTATIN 10 MG TABLET PO (08:10)
[2020-03-27 12:00] VITALS: BP 139/54; PULSE 78; RESP 20; TEMP 37.5; O2SAT 90
--- NOTE | 2020-03-27 13:22 | PC.NURSE ---
All assessments and administered medications from 0700 03/27/20 through current time were performed by Alyssia Harrington RN.
--- NOTE | 2020-03-27 14:30 | PM.IMPN ---
Progress Note: A&P Assessment and Plan (1) Weakness: Code(s): R53.1 - Weakness Status: Acute Assessment and Plan: Likely secondary to deconditioning. The patient has been placed in observation status. 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 and was tested for COVID-19 2 days ago prior to coming to emergency depart and he was positive, he came to emergency department because he had fell, chest x-ray was done in the ER showed possibly pneumonia and CT scan of the head was negative for any acute injury, emergency department patient was desaturating at 88% on room air and patient was started on 1 L of oxygen however currently is requiring 3 L, denies any fever or chills, patient was started on dexamethasone from ER, started the patient on Zithromax and Rocephin for possible pneumonia will continue to monitor, today patient remains clinically stable he does not have any fever and only requiring 3 L of oxygen, however patient is quite weak and difficult to ambulate patient lives home alone, will continue PT OT, will consult chief crew scheduler further recommendation, will continue to monitor and further recommendation to follow (2) COVID-19: Code(s): U07.1 - COVID-19 Status: Acute Assessment and Plan: Plan is above (3) Fall: Qualifiers: Encounter type: initial encounter Qualified Code(s): W19.XXXA - Unspecified fall, initial encounter Code(s): W19.XXXA - Unspecified fall, initial encounter Status: Acute Assessment and Plan: Will have a PT OT evaluate the patient (4) GERD (gastroesophageal reflux disease): Qualifiers: Esophagitis presence: esophagitis presence not specified Qualified Code(s): K21.9 - Gastro-esophageal reflux disease without esophagitis Code(s): K21.9 - Gastro-esophageal reflux disease without esophagitis Status: Acute Assessment and Plan: Will continue PPI (5) Hypertension: Qualifiers: Hypertension type: unspecified Qualified Code(s): I10 - Essential (primary) hypertension Code(s): I10 - Essential (primary) hypertension Status: Acute Assessment and Plan: Continue home regimen and monitor (6) Hypoxia: Code(s): R09.02 - Hypoxemia Status: Acute Assessment and Plan: Currently patient is on 3 L oxygen most likely secondary to pneumonia and COVID-19 will monitor Subjective Date/time seen: 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 and was tested for COVID-19 2 days ago prior to coming to emergency depart and he was positive, he came to emergency department because he had fell, chest x-ray was done in the ER showed possibly pneumonia and CT scan of the head was negative for any acute injury, emergency department patient was desaturating at 88% on room air and patient was started on 1 L of oxygen however currently is requiring 3 L, denies any fever or chills, patient was started on dexamethasone from ER, started the patient on Zithromax and Rocephin for possible pneumonia will continue to monitor, today patient remains clinically stable he does not have any fever and only requiring 3 L of oxygen, however patient is quite weak and difficult to ambulate patient lives home alone, will continue PT OT, will consult chief crew scheduler further recommendation, will continue to monitor and further recommendation to follow Review of Systems Review of Systems: All systems reviewed & are unremarkable except as noted in HPI and below Exam Narrative: Exam Narrative: Patient is comfortable, NAD HEENT: eyes are clear and none icteric LUNGS: Normal respiratory effort ABD: Moderately obese distended Lower extremities: no edema SKIN: nonjaundiced Neuro: grossly intact. Objective Data Vital Signs Vital Signs: Vital Signs - 24
[2020-03-27 16:00] VITALS: BP 148/57; PULSE 78; RESP 20; TEMP 37; O2SAT 90
[2020-03-27 20:00] VITALS: BP 145/64; PULSE 78; RESP 20; TEMP 36.8; O2SAT 92
[2020-03-28] VITALS (9 sets, daily range): BP systolic 128–151; BP diastolic 50–58; PULSE 69–81; RESP 20–22; TEMP 36.6–38; O2SAT 90–92
[2020-03-28 07:15] LABS: Basophils Percent Auto 0.2 % (0.2-1.2); Eosinophils Percent Auto 0.1 % (0-4.4); Hematocrit 40.6 % (42.0-52.0); Hemoglobin 14.1 g/dL (14.0-18.0); Immature Granulocyte Absolute 0.04 K/mm3 (0.00-0.031); Immature Granulocyte Percent A 0.4 % (0-0.5); Lymphocytes Absolute Auto 0.78 K/mm3 (0.9-3.2); Lymphocytes Percent Auto 8.3 % (18.3-44.2); Mean Corpuscular HGB Conc 34.7 g/dl (32-36); Mean Corpuscular Hemoglobin 29.2 pg (26-34); Mean Corpuscular Volume 84.1 fl (80-100); Mean Platelet Volume 9.6 fl (7.4-10.4); Monocytes Absolute Auto 0.6 K/mm3 (0.1-0.6); Monocytes Percent Auto 6.8 % (2.6-8.5); Neutrophils Absolute Auto 7.9 K/mm3 (1.3-6.7); Neutrophils Percent Auto 84.2 % (45.5-73.1); Platelet Count Result 202 k/mm3 (150-375); Red Blood Count 4.83 M/mm3 (4.6-6.20); Red Cell Distribution Width 11.8 % (11.5-14.5); White Blood Count 9.4 K/mm3 (4.5-10.0)
[2020-03-28 07:25] LABS: Alanine Aminotransferase 56 U/L (4-50); Albumin Level 3.6 g/dL (3.5-5.1); Alkaline Phosphatase 69 U/L (38-126); Anion Gap 7 mmol/L (8-16); Aspartate Amino Transferase 47 U/L (17-59); Bilirubin,Total 0.7 mg/dL (0.2-1.3); Blood Urea Nitrogen 21 mg/dL (9-20); Calcium 8.4 mg/dL (8.4-10.2); Carbon Dioxide 29 mmol/L (22-30); Chloride 97 mmol/L (98-107); Estimated CRCL calculation 62 ml/min; Estimated Glomerular Filt Rate > 60; Glucose 117 mg/dL (75-110); Potassium 3.6 mmol/L (3.4-5.0); Sodium 133 mmol/L (137-145)
[2020-03-28] MEDS: ATORVASTATIN 10 MG TABLET PO (09:25)
[2020-03-28] MEDS: PANTOPRAZOLE 40 MG TABLET PO (09:25)
[2020-03-28] MEDS: ENOXAPARIN 40 MG/0.4 ML SYRINGE SUB-Q ×2 (09:25→21:38)
[2020-03-28] MEDS: amLODIPine BESYLATE 5 MG TABLET 10 MG PO (09:25)
--- NOTE | 2020-03-28 13:17 | PM.CNPUL ---
Assessment and Plan Assessment and plan (1) Pneumonia due to COVID-19 virus: Code(s): U07.1 - COVID-19; J12.89 - Other viral pneumonia Status: Acute Assessment and Plan: - will start Dexamethasone 6 mg IV daily for 10 days - will start Remdesivir 200 mg IV day then 100 mg daily for days 2-5. May extend to 10 days based on clinical response - monitor daily Cr and LFT's, upper limit of considering discontinuation of Remdesivir is 10 X the upper limit of normal. - can discontinue ceftriaxone and azithromycin - keep O2 sats 88% or higher and monitor carefuly - code status should be discussed while the patient is able to make his own decisions. - encourage mobilization and sitting up into the chair History of Present Illness History of Present Illness Consult date: 03/28/20 Chief complaint: Weakness, Covid 19 viral pneumonia Narrative: 79 y/o male with history of HTN originally present on 03/22/20 with symptoms of conjuctivitis and nasal congestion. His CXR showed bibasilar infiltrates and his SARS-CoV-2 was positive. His CXR more recently shows diffuse bilateral multilobar interstitial infiltrates. He does have a cough and feels short of breath, decreased appetite, loss of taste and smell. His sats are 90% on 3 liters currently and he's in no respiratory distress. Review of Systems Review of Systems: All systems reviewed & are unremarkable except as noted in HPI and below PMFSH Past Medical History Medical History (Updated 03/28/20 @ 13:25 by Isaac Barnes MD) GERD (gastroesophageal reflux disease) Hypertension Family History Family History Unknown Unknown family medical history Social History Social History Smoking status: Never smoker Alcohol intake: current Drinks per week: 5 Substance use: never Substance use type: does not use Gender identity (if verbalized by the patient): Male Spiritual care concerns: No Meds Home Medications and Allergies Home Medications Medication Instructions Recorded Confirmed Type amlodipine 10 mg PO DAILY 04/04/19 03/24/20 History omeprazole magnesium [Prilosec OTC] 20 mg PO DAILY 04/04/19 03/24/20 History albuterol sulfate [Ventolin HFA] 2 puff INHALATION QID PRN #8.5 gm 03/22/20 03/24/20 Rx atorvastatin 10 mg PO DAILY 03/22/20 03/24/20 History azithromycin See Rx Instructions .ROUTE 03/22/20 03/24/20 Rx .COMPLEX #6 tablet codeine-guaifenesin 7.5 ml PO Q6H PRN #118 ml 03/22/20 03/24/20 Rx sulfacetamide sodium [Bleph-10] 2 drp OPHTHALMIC (EYE) Q4H #5 ml 03/22/20 03/24/20 Rx Allergies Allergy/AdvReac Type Severity Reaction Status Date / Time hydrocodone [From Vicodin] Allergy Mild BLOATING,NA Verified 03/24/20 01:01 SUEA Vital Signs Vital Signs - 24 hr 03/27/20 16:00 03/27/20 20:00 03/28/20 00:00 Temperature 37.0 C 36.8 C 37.1 C Pulse Rate 78 78 81 Respiratory Rate 20 20 22 H Blood Pressure 148/57 H 145/64 H 151/50 H Pulse Oximetry 90 92 90 03/28/20 04:00 03/28/20 08:00 Temperature 36.6 C 37.3 C Pulse Rate 69 77 Respiratory Rate 20 20 Blood Pressure 148/57 H 135/52 L Pulse Oximetry 90 90 Exam Const: General: cooperative, comfortable, no acute distress, well developed, alert, awake, Physically active and ill appearing HENMT: Head: normal to inspection, normocephalic and atraumatic Eyes: General: appearance normal, both eyes and all related structures Neck: Neck: normal visual inspection, trachea midline and supple Resp: Effort & Inspection: normal respiratory effort Auscultation: crackles and diminished lung sounds Cardio: Jugular venous distension: no JVD Rate: regular rate Rhythm: regular rhythm Heart sounds: S1 normal heart sound present and S2 normal heart sound present GI: Inspection: normal to inspection Auscultation: normal bowel sounds Skin: General skin exam: normal color and n
[2020-03-28 14:09] LABS: Alanine Aminotransferase 66 U/L (4-50)
[2020-03-28] MEDS: DEXAMETHASONE SOD PHOS INJ 4 MG/ML VIAL 6 MG IV PUSH (14:30)
[2020-03-28] MEDS: REMDESIVIR 200 MG/NS 250 ML 200 MG/250 ML BAG 250 MG IVPB (14:30)
--- NOTE | 2020-03-28 15:22 | PM.IMPN ---
Progress Note: A&P Assessment and Plan (1) Weakness: Code(s): R53.1 - Weakness Status: Acute Assessment and Plan: Likely secondary to deconditioning. The patient has been placed in observation status. 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 and was tested for COVID-19 2 days ago prior to coming to emergency depart and he was positive, he came to emergency department because he had fell, chest x-ray was done in the ER showed possibly pneumonia and CT scan of the head was negative for any acute injury, emergency department patient was desaturating at 88% on room air and patient was started on 1 L of oxygen however currently is requiring 3 L, denies any fever or chills, patient was started on dexamethasone from ER, started the patient on Zithromax and Rocephin for possible pneumonia will continue to monitor, today patient remains clinically stable he does not have any fever and only requiring 3 L of oxygen, however patient is quite weak and difficult to ambulate patient lives home alone, will continue PT OT, will consult veneer drier further recommendation, will continue to monitor and further recommendation to follow Today patient was seen by veneer drier started the patient dexamethasone as well as Remdesivir, patient states feels very tired difficulty with ambulation and not been able to participate in PT, denies any fever will continue to monitor further recommendation to follow (2) COVID-19: Code(s): U07.1 - COVID-19 Status: Acute Assessment and Plan: Plan is above (3) Fall: Qualifiers: Encounter type: initial encounter Qualified Code(s): W19.XXXA - Unspecified fall, initial encounter Code(s): W19.XXXA - Unspecified fall, initial encounter Status: Acute Assessment and Plan: Will have a PT OT evaluate the patient (4) GERD (gastroesophageal reflux disease): Qualifiers: Esophagitis presence: esophagitis presence not specified Qualified Code(s): K21.9 - Gastro-esophageal reflux disease without esophagitis Code(s): K21.9 - Gastro-esophageal reflux disease without esophagitis Status: Acute Assessment and Plan: Will continue PPI (5) Hypertension: Qualifiers: Hypertension type: unspecified Qualified Code(s): I10 - Essential (primary) hypertension Code(s): I10 - Essential (primary) hypertension Status: Acute Assessment and Plan: Continue home regimen and monitor (6) Hypoxia: Code(s): R09.02 - Hypoxemia Status: Acute Assessment and Plan: Currently patient is on 3 L oxygen most likely secondary to pneumonia and COVID-19 will monitor Subjective Date/time seen: 03/28/20 15:22 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, 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 and was tested for COVID-19 2 days ago prior to coming to emergency depart and he was positive, he came to emergency department because he had fell, chest x-ray was done in the ER showed possibly pneumonia and CT scan of the head was negative for any acute injury, emergency department patient was desaturating at 88% on room air and patient was started on 1 L of oxygen however currently is requiring 3 L, denies any fever or chills, patient was started on dexamethasone from ER, started the patient on Zithromax and Rocephin for possible pneumonia will continue to monitor, today patient remains clinically stable he does not have any fever and only requiring 3 L of oxygen, however patient is quite weak and difficult to ambulate patient lives home alone, will continue PT OT, will consult veneer drier further recommendation, will continue to monitor and further recommendation to follow Today patient was seen by veneer drier started the patient dexamethasone as well as Remdesivir, patient states feels very tired difficulty with ambulatio
[2020-03-29] VITALS (7 sets, daily range): BP systolic 115–136; BP diastolic 61–66; PULSE 59–65; RESP 18–22; TEMP 36.2–36.6; O2SAT 90–94
[2020-03-29 06:39] LABS: Basophils Percent Auto 0.1 % (0.2-1.2); Hematocrit 41.6 % (42.0-52.0); Hemoglobin 14.5 g/dL (14.0-18.0); Immature Granulocyte Absolute 0.03 K/mm3 (0.00-0.031); Immature Granulocyte Percent A 0.4 % (0-0.5); Lymphocytes Percent Auto 8.4 % (18.3-44.2); Mean Corpuscular HGB Conc 34.9 g/dl (32-36); Mean Corpuscular Hemoglobin 28.9 pg (26-34); Mean Platelet Volume 9.7 fl (7.4-10.4); Monocytes Absolute Auto 0.3 K/mm3 (0.1-0.6); Neutrophils Absolute Auto 6.3 K/mm3 (1.3-6.7); Neutrophils Percent Auto 87.1 % (45.5-73.1); Platelet Count Result 238 k/mm3 (150-375); Red Blood Count 5.01 M/mm3 (4.6-6.20); Red Cell Distribution Width 11.9 % (11.5-14.5); White Blood Count 7.2 K/mm3 (4.5-10.0)
[2020-03-29 06:52] LABS: Alanine Aminotransferase 90 U/L (4-50); Albumin Level 3.7 g/dL (3.5-5.1); Alkaline Phosphatase 80 U/L (38-126); Anion Gap 10 mmol/L (8-16); Aspartate Amino Transferase 61 U/L (17-59); Bilirubin,Total 0.6 mg/dL (0.2-1.3); Blood Urea Nitrogen 29 mg/dL (9-20); Calcium 8.9 mg/dL (8.4-10.2); Carbon Dioxide 27 mmol/L (22-30); Chloride 98 mmol/L (98-107); Estimated CRCL calculation 68 ml/min; Estimated Glomerular Filt Rate > 60; Glucose 159 mg/dL (75-110); Potassium 3.8 mmol/L (3.4-5.0); Sodium 135 mmol/L (137-145)
[2020-03-29] MEDS: amLODIPine BESYLATE 5 MG TABLET 10 MG PO (10:06)
[2020-03-29] MEDS: DEXAMETHASONE SOD PHOS INJ 4 MG/ML VIAL 6 MG IV PUSH (10:06)
[2020-03-29] MEDS: ENOXAPARIN 40 MG/0.4 ML SYRINGE SUB-Q ×2 (10:07→20:37)
[2020-03-29] MEDS: PANTOPRAZOLE 40 MG TABLET PO (10:07)
[2020-03-29] MEDS: ATORVASTATIN 10 MG TABLET PO (10:07)
--- NOTE | 2020-03-29 14:10 | PM.PNPUL ---
Progress Note: A&P Assessment and Plan (1) Pneumonia due to COVID-19 virus: Code(s): U07.1 - COVID-19; J12.89 - Other viral pneumonia Status: Acute Assessment and Plan: Clinically improving - continue Remdesivir for a total of 5 days - continue Dexamethasone 6 mg IV/PO daily for 10 days (2) Hypoxia: Code(s): R09.02 - Hypoxemia Status: Acute Subjective Date/time seen: 03/29/20 14:10 Interval history: Seems to have dramatically improved since starting Remdesivir and Dexamethasone yesterday. He feels much better and is sitting up into chair on 4 liters oxygen by nasal cannula Review of Systems Review of Systems: All systems reviewed & are unremarkable except as noted in HPI and below Exam Const: General: cooperative, comfortable, no acute distress, well developed, alert, awake, Physically active and ill appearing HENMT: Head: normal to inspection, normocephalic and atraumatic Eyes: General: appearance normal, both eyes and all related structures Neck: Neck: normal visual inspection, trachea midline and supple Resp: Effort & Inspection: normal respiratory effort Auscultation: crackles and diminished lung sounds Cardio: Jugular venous distension: no JVD Rate: regular rate Rhythm: regular rhythm Heart sounds: S1 normal heart sound present and S2 normal heart sound present GI: Inspection: normal to inspection Auscultation: normal bowel sounds Skin: General skin exam: normal color and no rashes or lesions noted Neuro: General: oriented to person, oriented to place, oriented to time and patient oriented x3 Cognition (Neuro): normal cognition Speech: normal speech Extrem: General: normal to inspection and no clubbing, cyanosis or edema Psych: Appearance: grossly normal and well kempt Mental Status: mental status grossly normal Objective Data Vital Signs Vital Signs: Vital Signs - 24 hr 03/28/20 14:50 03/28/20 16:00 03/28/20 20:00 Temperature 37.4 C 37.7 C H 37.1 C Pulse Rate 79 72 Respiratory Rate 20 20 Blood Pressure 134/55 L 128/58 L Pulse Oximetry 92 90 03/28/20 21:00 03/28/20 23:23 03/29/20 00:00 Temperature 36.6 C Pulse Rate 59 L Respiratory Rate 20 Blood Pressure 117/66 Pulse Oximetry 92 91 91 03/29/20 05:00 03/29/20 06:17 03/29/20 08:00 Temperature 36.2 C L Pulse Rate 65 Respiratory Rate 22 H Blood Pressure 134/63 Pulse Oximetry 90 90 90 Intake/Output Intake/Output: Intake & Output 03/26/20 03/27/20 03/28/20 03/29/20 23:59 23:59 23:59 23:59 Intake Total 1290 1200 545 650 Output Total 250 700 550 900 Balance 1040 500 -5 -250 Meds/Results Medications: Active Medications Generic Name Dose Route Start Last Admin Trade Name Freq PRN Reason Stop Dose Admin Acetaminophen 650 mg 03/23/20 22:15 Acetaminophen 325 Mg Tablet PO Q4H PRN Mild Pain (1-3) or Fever Albuterol 2 puff 03/24/20 17:13 Albuterol Sulfate (*Sp) Aerosol 1 Puff INHALATION QID PRN shortness of breath or wheezing Amlodipine Besylate 10 mg 03/25/20 09:00 03/29/20 10:06 Amlodipine Besylate 5 Mg Tablet PO 10 mg DAILY TODD Administration Atorvastatin Calcium 10 mg 03/25/20 09:00 03/29/20 10:07 Atorvastatin 10 Mg Tablet PO 10 mg DAILY TODD Administration Dexamethasone Sodium Phosphate 6 mg 03/28/20 13:15 03/29/20 10:06 Dexamethasone Sod Phos Inj 4 Mg/Ml Vial IV PUSH 04/06/20 09:01 6 mg DAILY TODD Administration Enoxaparin Sodium 40 mg 03/24/20 09:05 03/29/20 10:07 Enoxaparin 40 Mg/0.4 Ml Syringe SUB-Q 40 mg Q12HR TODD Administration Remdesivir 100 mg in 250 mls @ 250 mls/hr 03/29/20 22:00 IVPB 04/01/20 22:59 Q24H TODD Ondansetron HCl 4 mg 03/23/20 22:15 Ondansetron Inj 4 Mg/2 Ml Vial IV PUSH Q4H PRN Nausea Pantoprazole Sodium 40 mg 03/25/20 09:00 03/29/20 10:07 Pantoprazole 40 Mg Tablet PO 04/24/20 09:01 40 mg DAILY TODD Administration Radi
--- NOTE | 2020-03-29 14:45 | PCRCNOTE ---
SPOKE TO RN, ANTICIPATED D/C IN 4 DAYS, WILL RE CHECK HOME O2 NEEDS CLOSER TO DISCHARGE
--- NOTE | 2020-03-29 16:54 | PM.IMPN ---
Progress Note: A&P Assessment and Plan (1) Weakness: Code(s): R53.1 - Weakness Status: Acute Assessment and Plan: Likely secondary to deconditioning. The patient has been placed in observation status. 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 and was tested for COVID-19 2 days ago prior to coming to emergency depart and he was positive, he came to emergency department because he had fell, chest x-ray was done in the ER showed possibly pneumonia and CT scan of the head was negative for any acute injury, emergency department patient was desaturating at 88% on room air and patient was started on 1 L of oxygen however currently is requiring 3 L, denies any fever or chills, patient was started on dexamethasone from ER, started the patient on Zithromax and Rocephin for possible pneumonia will continue to monitor, today patient remains clinically stable he does not have any fever and only requiring 3 L of oxygen, however patient is quite weak and difficult to ambulate patient lives home alone, will continue PT OT, will consult can piler further recommendation, will continue to monitor and further recommendation to follow on 03/28 patient was seen by can piler started the patient dexamethasone as well as Remdesivir, today patient feels little better he was able to walk around room, and stats feeling much compare to yesterday, D/W Robby Nazario instructed to continue dexamethasone 05/26 and Remdesivir 2/, will continue PT OT and will monitor the patient is clinically stable will do the discharge planning (2) COVID-19: Code(s): U07.1 - COVID-19 Status: Acute Assessment and Plan: Plan is above (3) Fall: Qualifiers: Encounter type: initial encounter Qualified Code(s): W19.XXXA - Unspecified fall, initial encounter Code(s): W19.XXXA - Unspecified fall, initial encounter Status: Acute Assessment and Plan: Will have a PT OT evaluate the patient (4) GERD (gastroesophageal reflux disease): Qualifiers: Esophagitis presence: esophagitis presence not specified Qualified Code(s): K21.9 - Gastro-esophageal reflux disease without esophagitis Code(s): K21.9 - Gastro-esophageal reflux disease without esophagitis Status: Acute Assessment and Plan: Will continue PPI (5) Hypertension: Qualifiers: Hypertension type: unspecified Qualified Code(s): I10 - Essential (primary) hypertension Code(s): I10 - Essential (primary) hypertension Status: Acute Assessment and Plan: Continue home regimen and monitor (6) Hypoxia: Code(s): R09.02 - Hypoxemia Status: Acute Assessment and Plan: Currently patient is on 3 L oxygen most likely secondary to pneumonia and COVID-19 will monitor Subjective Date/time seen: 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 and was tested for COVID-19 2 days ago prior to coming to emergency depart and he was positive, he came to emergency department because he had fell, chest x-ray was done in the ER showed possibly pneumonia and CT scan of the head was negative for any acute injury, emergency department patient was desaturating at 88% on room air and patient was started on 1 L of oxygen however currently is requiring 3 L, denies any fever or chills, patient was started on dexamethasone from ER, started the patient on Zithromax and Rocephin for possible pneumonia will continue to monitor, today patient remains clinically stable he does not have any fever and only requiring 3 L of oxygen, however patient is quite weak and difficult to ambulate patient lives home alone, will continue PT OT, will consult can piler further recommendation, will continue to monitor and further recommendation to follow on 03/28 patient was seen by pulmono
[2020-03-29] MEDS: REMDESIVIR 100 MG/NS 250 ML 100 MG/250 ML BAG 250 MG IVPB (20:36)
[2020-03-30] VITALS (8 sets, daily range): BP systolic 112–131; BP diastolic 53–66; PULSE 51–81; RESP 16–20; TEMP 35.6–36.4; O2SAT 87–94
[2020-03-30 06:47] LABS: Basophils Percent Auto 0.3 % (0.2-1.2); Hematocrit 42.9 % (42.0-52.0); Hemoglobin 15.3 g/dL (14.0-18.0); Immature Granulocyte Absolute 0.08 K/mm3 (0.00-0.031); Immature Granulocyte Percent A 0.6 % (0-0.5); Lymphocytes Absolute Auto 0.93 K/mm3 (0.9-3.2); Lymphocytes Percent Auto 6.5 % (18.3-44.2); Mean Corpuscular HGB Conc 35.7 g/dl (32-36); Mean Corpuscular Hemoglobin 29.5 pg (26-34); Mean Corpuscular Volume 82.7 fl (80-100); Mean Platelet Volume 9.8 fl (7.4-10.4); Monocytes Absolute Auto 0.6 K/mm3 (0.1-0.6); Monocytes Percent Auto 4.3 % (2.6-8.5); Neutrophils Absolute Auto 12.6 K/mm3 (1.3-6.7); Neutrophils Percent Auto 88.3 % (45.5-73.1); Platelet Count Result 308 k/mm3 (150-375); Red Blood Count 5.19 M/mm3 (4.6-6.20); Red Cell Distribution Width 11.9 % (11.5-14.5); White Blood Count 14.3 K/mm3 (4.5-10.0)
[2020-03-30 07:03] LABS: Alanine Aminotransferase 78 U/L (4-50); Albumin Level 3.6 g/dL (3.5-5.1); Alkaline Phosphatase 76 U/L (38-126); Anion Gap 9 mmol/L (8-16); Aspartate Amino Transferase 37 U/L (17-59); Bilirubin,Total 0.4 mg/dL (0.2-1.3); Blood Urea Nitrogen 35 mg/dL (9-20); Calcium 8.9 mg/dL (8.4-10.2); Carbon Dioxide 27 mmol/L (22-30); Chloride 102 mmol/L (98-107); Estimated CRCL calculation 68 ml/min; Estimated Glomerular Filt Rate > 60; Glucose 155 mg/dL (75-110); Potassium 3.7 mmol/L (3.4-5.0); Sodium 138 mmol/L (137-145)
--- NOTE | 2020-03-30 08:19 | PM.IMPN ---
Progress Note: A&P Assessment and Plan (1) Pneumonia due to COVID-19 virus: Code(s): U07.1 - COVID-19; J12.89 - Other viral pneumonia Status: Acute Assessment and Plan: On Remdesivir + Dexamethasone. Supportive care (2) Hypoxia: Code(s): R09.02 - Hypoxemia Status: Acute Assessment and Plan: Continue supplemental O2. (3) Hypertension: Qualifiers: Hypertension type: unspecified Qualified Code(s): I10 - Essential (primary) hypertension Code(s): I10 - Essential (primary) hypertension Status: Acute Assessment and Plan: Continue to monitor Continue home meds. (4) Weakness: Code(s): R53.1 - Weakness Status: Acute Assessment and Plan: PT/OT on board. (5) Fall: Qualifiers: Encounter type: initial encounter Qualified Code(s): W19.XXXA - Unspecified fall, initial encounter Code(s): W19.XXXA - Unspecified fall, initial encounter Status: Acute Assessment and Plan: No injuries. Fall precautions. (6) Influenza-like illness: Code(s): J11.1 - Influenza due to unidentified influenza virus with other respiratory manifestations Status: Acute Assessment and Plan: Secondary to Covid 19 . (7) Pneumonia due to 2019 novel coronavirus: Code(s): U07.1 - COVID-19; J12.89 - Other viral pneumonia Status: Acute Assessment and Plan: On Remdesivir and Dexamethasone. Supportive care. Subjective Date/time seen: 03/30/20 08:19 States that feels weak. No issues overnight. Review of Systems Review of Systems: Narrative: States that feels weak. Constitutional: Comments: no fevers, no chills, no rigors. Eyes: Comments: no vision changes. ENT: Comments: no ear ache, no throat pain, no nasal congestion. Cardiovascular: Comments: no chest pain. Respiratory: Comments: no chest pain. Gastrointestinal: Comments: poor appetite. Musculoskeletal: Comments: Generalized weakness. Integumentary/Breasts: Comments: no rashes. Neurologic: Comments: No sensory motor deficit. Hematologic/Lymphatic: Comments: no LAP. Exam Narrative: Exam Narrative: Sitting in bed. Const: General: cooperative, alert, awake, Physically active and ill appearing Nutritional Appearance: average body habitus Orientation/consciousness: patient oriented x3 HENMT: Head: normal to inspection and normocephalic Face and sinus: normal facial exam Eyes: General: appearance normal, both eyes and all related structures Pupils: Equal, round and reactive pupils present EOM: EOMs intact bilaterally Neck: Neck: normal visual inspection, no lymphadenopathy, supple and no JVD Resp: Auscultation: clear to auscultation bilaterally Cardio: Jugular venous distension: no JVD Rate: regular rate Rhythm: regular rhythm GI: Inspection: normal to inspection GI Palp: Yes Soft to palpation and Yes No hepatosplenomegaly present Skin: General skin exam: normal color Rashes: no rashes Neuro: General: patient oriented x3 and CN's II-XI intact bilaterally Cranial nerves: Yes CN's II-XII intact bilaterally and Yes Equal, round and reactive pupils present Cognition (Neuro): normal cognition Speech: normal speech Motor exam (neuro): 5/5 motor strength present throughout Sensory Exam: normal sensation Extrem: General: normal to inspection and no pedal edema Objective Data Vital Signs Vital Signs: Vital Signs - 24 hr 03/29/20 12:00 03/29/20 17:00 03/29/20 20:00 Temperature 97.6 F 97.6 F 97.6 F Pulse Rate 59 L 61 59 L Respiratory Rate 18 20 20 Blood Pressure 115/66 130/62 125/61 Pulse Oximetry 94 91 90 03/30/20 00:00 03/30/20 04:00 Temperature 97.5 F L 97.5 F L Pulse Rate 55 L 81 Respiratory Rate 18 20 Blood Pressure 112/66 117/58 L Pulse Oximetry 87 L 94 Intake/Output Intake/Output: Intake & Output 03/27/20 03/28/20 03/29/20 03/30/20 23:59 23:59 23:59 23:59 Intake Total 0030 205 1180 450 Ou
[2020-03-30] MEDS: amLODIPine BESYLATE 5 MG TABLET 10 MG PO (08:20)
[2020-03-30] MEDS: ENOXAPARIN 40 MG/0.4 ML SYRINGE SUB-Q ×2 (08:21→20:59)
[2020-03-30] MEDS: DEXAMETHASONE SOD PHOS INJ 4 MG/ML VIAL 6 MG IV PUSH (08:21)
[2020-03-30] MEDS: ATORVASTATIN 10 MG TABLET PO (08:21)
[2020-03-30] MEDS: PANTOPRAZOLE 40 MG TABLET PO (08:21)
--- NOTE | 2020-03-30 11:48 | PM.PNPUL ---
Progress Note: A&P Assessment and Plan (1) Pneumonia due to COVID-19 virus: Code(s): U07.1 - COVID-19; J12.89 - Other viral pneumonia Status: Acute Assessment and Plan: Clinically improving - continue Remdesivir for a total of 5 days - continue Dexamethasone 6 mg IV/PO daily for 10 days (2) Hypoxia: Code(s): R09.02 - Hypoxemia Status: Acute Subjective Date/time seen: 03/30/20 11:48 Interval history: Feeling better. Currently on 4 liters of oxygen Review of Systems Review of Systems: All systems reviewed & are unremarkable except as noted in HPI and below Exam Const: General: cooperative, comfortable, no acute distress, well developed, alert, awake, Physically active and ill appearing HENMT: Head: normal to inspection, normocephalic and atraumatic Eyes: General: appearance normal, both eyes and all related structures Neck: Neck: normal visual inspection, trachea midline and supple Resp: Effort & Inspection: normal respiratory effort Auscultation: crackles and diminished lung sounds Cardio: Jugular venous distension: no JVD Rate: regular rate Rhythm: regular rhythm Heart sounds: S1 normal heart sound present and S2 normal heart sound present GI: Inspection: normal to inspection Auscultation: normal bowel sounds Skin: General skin exam: normal color and no rashes or lesions noted Neuro: General: oriented to person, oriented to place, oriented to time and patient oriented x3 Cognition (Neuro): normal cognition Speech: normal speech Extrem: General: normal to inspection and no clubbing, cyanosis or edema Psych: Appearance: grossly normal and well kempt Mental Status: mental status grossly normal Objective Data Vital Signs Vital Signs: Vital Signs - 24 hr 03/29/20 12:00 03/29/20 17:00 03/29/20 20:00 Temperature 36.4 C 36.4 C 36.4 C Pulse Rate 59 L 61 59 L Respiratory Rate 18 20 20 Blood Pressure 115/66 130/62 125/61 Pulse Oximetry 94 91 90 03/30/20 00:00 03/30/20 04:00 03/30/20 08:00 Temperature 36.4 C L 36.4 C L 35.8 C L Pulse Rate 55 L 81 55 L Respiratory Rate 18 20 18 Blood Pressure 112/66 117/58 L 126/58 L Pulse Oximetry 87 L 94 88 L 03/30/20 08:20 Temperature Pulse Rate 64 Respiratory Rate 20 Blood Pressure Pulse Oximetry 94 Intake/Output Intake/Output: Intake & Output 03/27/20 03/28/20 03/29/20 03/30/20 23:59 23:59 23:59 23:59 Intake Total 8536 261 9967 600 Output Total 498 857 4122 500 Balance 500 -5 560 100 Meds/Results Medications: Active Medications Generic Name Dose Route Start Last Admin Trade Name Freq PRN Reason Stop Dose Admin Acetaminophen 650 mg 03/23/20 22:15 Acetaminophen 325 Mg Tablet PO Q4H PRN Mild Pain (1-3) or Fever Albuterol 2 puff 03/24/20 17:13 Albuterol Sulfate (*Sp) Aerosol 1 Puff INHALATION QID PRN shortness of breath or wheezing Amlodipine Besylate 10 mg 03/25/20 09:00 03/30/20 08:20 Amlodipine Besylate 5 Mg Tablet PO 10 mg DAILY TODD Administration Atorvastatin Calcium 10 mg 03/25/20 09:00 03/30/20 08:21 Atorvastatin 10 Mg Tablet PO 10 mg DAILY TODD Administration Dexamethasone Sodium Phosphate 6 mg 03/28/20 13:15 03/30/20 08:21 Dexamethasone Sod Phos Inj 4 Mg/Ml Vial IV PUSH 04/06/20 09:01 6 mg DAILY TODD Administration Enoxaparin Sodium 40 mg 03/24/20 09:05 03/30/20 08:21 Enoxaparin 40 Mg/0.4 Ml Syringe SUB-Q 40 mg Q12HR TODD Administration Remdesivir 100 mg in 250 mls @ 250 mls/hr 03/29/20 22:00 03/29/20 21:40 IVPB 04/01/20 22:59 Infused Q24H TODD Infusion Ondansetron HCl 4 mg 03/23/20 22:15 Ondansetron Inj 4 Mg/2 Ml Vial IV PUSH Q4H PRN Nausea Pantoprazole Sodium 40 mg 03/25/20 09:00 03/30/20 08:21 Pantoprazole 40 Mg Tablet PO 04/24/20 09:01 40 mg DAILY TODD Administration Radiology Results: ITS Impressions Head CT 03/23/20 19:02 IMPRESSION: 1. No acute intracranial abno
[2020-03-30] MEDS: REMDESIVIR 100 MG/NS 250 ML 100 MG/250 ML BAG 250 MG IVPB (20:59)
[2020-03-31] VITALS (12 sets, daily range): BP systolic 114–128; BP diastolic 54–61; PULSE 48–85; RESP 14–20; TEMP 35.5–36.3; O2SAT 89–97
--- NOTE | 2020-03-31 01:47 | PC.NURSE ---
0030 PT O2 INCREASED TO 5L, CURRENT SAT 90% ON 4L. WILL CONTINUE TO MONITOR.
[2020-03-31 06:41] LABS: Basophils Percent Auto 0.1 % (0.2-1.2); Hematocrit 44.1 % (42.0-52.0); Hemoglobin 15.4 g/dL (14.0-18.0); Immature Granulocyte Absolute 0.11 K/mm3 (0.00-0.031); Immature Granulocyte Percent A 0.7 % (0-0.5); Lymphocytes Absolute Auto 1.01 K/mm3 (0.9-3.2); Lymphocytes Percent Auto 6.3 % (18.3-44.2); Mean Corpuscular HGB Conc 34.9 g/dl (32-36); Mean Corpuscular Hemoglobin 29.7 pg (26-34); Mean Corpuscular Volume 85.1 fl (80-100); Monocytes Absolute Auto 0.6 K/mm3 (0.1-0.6); Monocytes Percent Auto 3.6 % (2.6-8.5); Neutrophils Absolute Auto 14.2 K/mm3 (1.3-6.7); Neutrophils Percent Auto 89.3 % (45.5-73.1); Platelet Count Result 378 k/mm3 (150-375); Red Blood Count 5.18 M/mm3 (4.6-6.20); Red Cell Distribution Width 12.3 % (11.5-14.5)
[2020-03-31 06:53] LABS: Alanine Aminotransferase 77 U/L (4-50); Albumin Level 3.7 g/dL (3.5-5.1); Alkaline Phosphatase 75 U/L (38-126); Anion Gap 8 mmol/L (8-16); Aspartate Amino Transferase 40 U/L (17-59); Bilirubin,Total 0.5 mg/dL (0.2-1.3); Blood Urea Nitrogen 35 mg/dL (9-20); Calcium 8.9 mg/dL (8.4-10.2); Carbon Dioxide 26 mmol/L (22-30); Chloride 103 mmol/L (98-107); Estimated CRCL calculation 75 ml/min; Estimated Glomerular Filt Rate > 60; Glucose 148 mg/dL (75-110); Potassium 4.2 mmol/L (3.4-5.0); Sodium 137 mmol/L (137-145)
[2020-03-31] MEDS: amLODIPine BESYLATE 5 MG TABLET 10 MG PO (08:32)
[2020-03-31] MEDS: ATORVASTATIN 10 MG TABLET PO (08:32)
[2020-03-31] MEDS: PANTOPRAZOLE 40 MG TABLET PO (08:32)
[2020-03-31] MEDS: DEXAMETHASONE SOD PHOS INJ 4 MG/ML VIAL 6 MG IV PUSH (08:33)
[2020-03-31] MEDS: ENOXAPARIN 40 MG/0.4 ML SYRINGE SUB-Q ×2 (08:33→20:56)
--- NOTE | 2020-03-31 10:38 | PCNWS ---
Weekly nutritional screen. Patient is tolerating current diet with adequate intake. No weight loss reported. No nutritional needs at this time.
--- NOTE | 2020-03-31 12:57 | PM.IMPN ---
Progress Note: A&P Assessment and Plan (1) Pneumonia due to COVID-19 virus: Code(s): U07.1 - COVID-19; J12.89 - Other viral pneumonia Status: Acute Assessment and Plan: Currently on Remdesivir and Dexamethasone Supportive care (2) Pneumonia due to 2019 novel coronavirus: Code(s): U07.1 - COVID-19; J12.89 - Other viral pneumonia Status: Acute (3) Influenza-like illness: Code(s): J11.1 - Influenza due to unidentified influenza virus with other respiratory manifestations Status: Acute Assessment and Plan: Likely secondary to Covid 19 novel virus. (4) Hypoxia: Code(s): R09.02 - Hypoxemia Status: Acute Assessment and Plan: Still requiring supplemental O2 4-5 L Appreciate Network Security Administrator note. (5) Hypertension: Qualifiers: Hypertension type: unspecified Qualified Code(s): I10 - Essential (primary) hypertension Code(s): I10 - Essential (primary) hypertension Status: Acute Assessment and Plan: Stable Continue home meds. (6) GERD (gastroesophageal reflux disease): Qualifiers: Esophagitis presence: esophagitis presence not specified Qualified Code(s): K21.9 - Gastro-esophageal reflux disease without esophagitis Code(s): K21.9 - Gastro-esophageal reflux disease without esophagitis Status: Acute Assessment and Plan: Continue home meds Stable. (7) Weakness: Code(s): R53.1 - Weakness Status: Acute Assessment and Plan: Working with PT/OT (8) Fall: Qualifiers: Encounter type: initial encounter Qualified Code(s): W19.XXXA - Unspecified fall, initial encounter Code(s): W19.XXXA - Unspecified fall, initial encounter Status: Acute Assessment and Plan: Fall precautions Stable. Subjective Date/time seen: 03/31/20 12:57 Patient states that had a good night rest. Breathing well. Review of Systems Review of Systems: Narrative: Sates that feels much better, his breathing is much better. Constitutional: Comments: no chills, no generalized weakness. Eyes: Comments: no vision changes. ENT: Comments: no ear ache, no throat pain, no nasal congestion. Cardiovascular: Comments: no chest pain. Respiratory: Comments: Still requiring supplemental oxygen. Gastrointestinal: Comments: appetite is improved, no n/v/abdominal pain. Musculoskeletal: Comments: no joint pain or swelling. Neurologic: Comments: no sensory motor deficit. Hematologic/Lymphatic: Comments: no LAP Exam Narrative: Exam Narrative: Sitting in bed. Const: General: cooperative, healthy appearing, comfortable, alert, awake and Physically active Nutritional Appearance: average body habitus Orientation/consciousness: patient oriented x3 Limitations: no limitations HENMT: Head: normal to inspection and normocephalic Ears: hearing grossly normal bilaterally Face and sinus: normal facial exam Eyes: General: appearance normal, both eyes and all related structures Pupils: Equal, round and reactive pupils present EOM: EOMs intact bilaterally Neck: Neck: no lymphadenopathy, supple and no JVD Resp: Effort & Inspection: normal respiratory effort Auscultation: clear to auscultation bilaterally Cardio: Jugular venous distension: no JVD Rate: regular rate Rhythm: regular rhythm GI: GI Palp: Yes Soft to palpation and Yes No hepatosplenomegaly present Skin: Rashes: no rashes Neuro: Cranial nerves: Yes CN's II-XII intact bilaterally and Yes Equal, round and reactive pupils present Cognition (Neuro): normal cognition Gait exam (Neuro): Normal gait present Motor exam (neuro): 5/5 motor strength present throughout Extrem: General: full ROM, no joint enlargement and no pedal edema Objective Data Vital Signs Vital Signs: Vital Signs - 24 hr 03/30/20 16:00 03/30/20 20:00 03/30/20 21:21 Temperature 97.0 F L 97 F L Pulse Rate 54 L 56 L Respiratory Rate 16 20 Blood Pr
--- NOTE | 2020-03-31 15:07 | PM.PNPUL ---
Progress Note: A&P Assessment and Plan (1) Pneumonia due to COVID-19 virus: Code(s): U07.1 - COVID-19; J12.89 - Other viral pneumonia Status: Acute Assessment and Plan: Clinically improving - continue Remdesivir for a total of 5 days - continue Dexamethasone 6 mg IV/PO daily for 10 days (2) Hypoxia: Code(s): R09.02 - Hypoxemia Status: Acute Assessment and Plan: - Home oxygen assessment - will likely be discharged home on Sunday ( after 5th dose of Remdesivir) Subjective Date/time seen: 03/31/20 15:07 Interval history: Continues to feel better but still requiring 4-5 liters oxygen per nasal cannula Review of Systems Review of Systems: All systems reviewed & are unremarkable except as noted in HPI and below Exam Const: General: cooperative, comfortable, no acute distress, well developed, alert, awake, Physically active and ill appearing HENMT: Head: normal to inspection, normocephalic and atraumatic Eyes: General: appearance normal, both eyes and all related structures Neck: Neck: normal visual inspection, trachea midline and supple Resp: Effort & Inspection: normal respiratory effort Auscultation: crackles and diminished lung sounds Cardio: Jugular venous distension: no JVD Rate: regular rate Rhythm: regular rhythm Heart sounds: S1 normal heart sound present and S2 normal heart sound present GI: Inspection: normal to inspection Auscultation: normal bowel sounds Skin: General skin exam: normal color and no rashes or lesions noted Neuro: General: oriented to person, oriented to place, oriented to time and patient oriented x3 Cognition (Neuro): normal cognition Speech: normal speech Extrem: General: normal to inspection and no clubbing, cyanosis or edema Psych: Appearance: grossly normal and well kempt Mental Status: mental status grossly normal Objective Data Vital Signs Vital Signs: Vital Signs - 24 hr 03/30/20 16:00 03/30/20 20:00 03/30/20 21:21 Temperature 36.1 C L 36.1 C L Pulse Rate 54 L 56 L Respiratory Rate 16 20 Blood Pressure 126/53 L 131/57 L Pulse Oximetry 89 L 90 90 03/31/20 00:26 03/31/20 00:30 03/31/20 01:40 Temperature 36.2 C L Pulse Rate 51 L Respiratory Rate 20 Blood Pressure 114/57 L Pulse Oximetry 90 90 97 03/31/20 01:49 03/31/20 05:00 03/31/20 08:00 Temperature 36.1 C L 35.7 C L Pulse Rate 48 L 50 L 50 L Respiratory Rate 20 16 Blood Pressure 124/61 114/61 Pulse Oximetry 97 91 89 L 03/31/20 08:43 03/31/20 12:00 03/31/20 14:57 Temperature 35.7 C L Pulse Rate 51 L 85 Respiratory Rate 16 18 Blood Pressure 128/54 L Pulse Oximetry 94 94 94 Intake/Output Intake/Output: Intake & Output 03/28/20 03/29/20 03/30/20 03/31/20 23:59 23:59 23:59 23:59 Intake Total 545 2010 1400 490 Output Total 550 1450 1200 500 Balance -5 560 200 -10 Meds/Results Medications: Active Medications Generic Name Dose Route Start Last Admin Trade Name Freq PRN Reason Stop Dose Admin Acetaminophen 650 mg 03/23/20 22:15 Acetaminophen 325 Mg Tablet PO Q4H PRN Mild Pain (1-3) or Fever Albuterol 2 puff 03/24/20 17:13 Albuterol Sulfate (*Sp) Aerosol 1 Puff INHALATION QID PRN shortness of breath or wheezing Amlodipine Besylate 10 mg 03/25/20 09:00 03/31/20 08:32 Amlodipine Besylate 5 Mg Tablet PO 10 mg DAILY TODD Administration Atorvastatin Calcium 10 mg 03/25/20 09:00 03/31/20 08:32 Atorvastatin 10 Mg Tablet PO 10 mg DAILY TODD Administration Dexamethasone Sodium Phosphate 6 mg 03/28/20 13:15 03/31/20 08:33 Dexamethasone Sod Phos Inj 4 Mg/Ml Vial IV PUSH 04/06/20 09:01 6 mg DAILY TODD Administration Enoxaparin Sodium 40 mg 03/24/20 09:05 03/31/20 08:33 Enoxaparin 40 Mg/0.4 Ml Syringe SUB-Q 40 mg Q12HR TODD Administration Remdesivir 100 mg in 250 mls @ 250 mls/hr 03/29/20 22:00 03/30/20 20:59 IVPB 04/01/20 22:59 250 mls/hr Q24H SC
[2020-03-31] MEDS: REMDESIVIR 100 MG/NS 250 ML 100 MG/250 ML BAG 250 MG IVPB (21:05)
[2020-04-01] VITALS (11 sets, daily range): BP systolic 100–124; BP diastolic 48–69; PULSE 49–56; RESP 18–20; TEMP 36.3–37; O2SAT 85–96
[2020-04-01 06:36] LABS: Basophils Percent Auto 0.2 % (0.2-1.2); Hematocrit 44.1 % (42.0-52.0); Hemoglobin 15.1 g/dL (14.0-18.0); Immature Granulocyte Absolute 0.21 K/mm3 (0.00-0.031); Immature Granulocyte Percent A 1.7 % (0-0.5); Lymphocytes Absolute Auto 0.94 K/mm3 (0.9-3.2); Lymphocytes Percent Auto 7.8 % (18.3-44.2); Mean Corpuscular HGB Conc 34.2 g/dl (32-36); Mean Corpuscular Hemoglobin 29.6 pg (26-34); Mean Corpuscular Volume 86.5 fl (80-100); Mean Platelet Volume 9.8 fl (7.4-10.4); Monocytes Absolute Auto 0.6 K/mm3 (0.1-0.6); Monocytes Percent Auto 5.2 % (2.6-8.5); Neutrophils Absolute Auto 10.3 K/mm3 (1.3-6.7); Neutrophils Percent Auto 85.1 % (45.5-73.1); Platelet Count Result 348 k/mm3 (150-375); Red Cell Distribution Width 12.4 % (11.5-14.5); White Blood Count 12.1 K/mm3 (4.5-10.0)
[2020-04-01 06:40] LABS: Alanine Aminotransferase 72 U/L (4-50); Albumin Level 3.4 g/dL (3.5-5.1); Alkaline Phosphatase 71 U/L (38-126); Anion Gap 8 mmol/L (8-16); Aspartate Amino Transferase 37 U/L (17-59); Bilirubin,Total 0.4 mg/dL (0.2-1.3); Blood Urea Nitrogen 28 mg/dL (9-20); Calcium 8.9 mg/dL (8.4-10.2); Carbon Dioxide 27 mmol/L (22-30); Chloride 105 mmol/L (98-107); Estimated CRCL calculation 75 ml/min; Estimated Glomerular Filt Rate > 60; Glucose 141 mg/dL (75-110); Potassium 4.1 mmol/L (3.4-5.0); Sodium 140 mmol/L (137-145)
[2020-04-01] MEDS: ENOXAPARIN 40 MG/0.4 ML SYRINGE SUB-Q (08:32)
[2020-04-01] MEDS: ATORVASTATIN 10 MG TABLET PO (08:33)
[2020-04-01] MEDS: DEXAMETHASONE SOD PHOS INJ 4 MG/ML VIAL 6 MG IV PUSH (08:33)
[2020-04-01] MEDS: PANTOPRAZOLE 40 MG TABLET PO (08:33)
[2020-04-01] MEDS: amLODIPine BESYLATE 5 MG TABLET 10 MG PO (08:37)
--- NOTE | 2020-04-01 10:07 | PM.PNPUL ---
Progress Note: A&P Assessment and Plan (1) Pneumonia due to COVID-19 virus: Code(s): U07.1 - COVID-19; J12.89 - Other viral pneumonia Status: Acute Assessment and Plan: Clinically improving - continue Remdesivir for a total of 5 days - continue Dexamethasone 6 mg IV/PO daily for 10 days - will order outpatient HRCT of the chest and PFT in about 4 weeks and have him f/u with our pulmonary clinic (2) Hypoxia: Code(s): R09.02 - Hypoxemia Status: Acute Assessment and Plan: - Home oxygen assessment - being discharged today Subjective Date/time seen: 04/01/20 10:07 Interval history: Feeling better and likely will go home today. Last Remdesivir dose to be given early today in an effort to expedite discharge. Review of Systems Review of Systems: All systems reviewed & are unremarkable except as noted in HPI and below Exam Const: General: cooperative, comfortable, no acute distress, well developed, alert, awake, Physically active and ill appearing HENMT: Head: normal to inspection, normocephalic and atraumatic Eyes: General: appearance normal, both eyes and all related structures Neck: Neck: normal visual inspection, trachea midline and supple Resp: Effort & Inspection: normal respiratory effort Auscultation: crackles and diminished lung sounds Cardio: Jugular venous distension: no JVD Rate: regular rate Rhythm: regular rhythm Heart sounds: S1 normal heart sound present and S2 normal heart sound present GI: Inspection: normal to inspection Auscultation: normal bowel sounds Skin: General skin exam: normal color and no rashes or lesions noted Neuro: General: oriented to person, oriented to place, oriented to time and patient oriented x3 Cognition (Neuro): normal cognition Speech: normal speech Extrem: General: normal to inspection and no clubbing, cyanosis or edema Psych: Appearance: grossly normal and well kempt Mental Status: mental status grossly normal Objective Data Vital Signs Vital Signs: Vital Signs - 24 hr 03/31/20 12:00 03/31/20 14:57 03/31/20 16:00 Temperature 35.7 C L 35.5 C L Pulse Rate 51 L 85 52 L Respiratory Rate 16 18 14 Blood Pressure 128/54 L 122/55 L Pulse Oximetry 94 94 94 03/31/20 20:00 03/31/20 22:10 04/01/20 00:00 Temperature 36.3 C L 36.3 C L Pulse Rate 50 L 49 L Respiratory Rate 18 18 Blood Pressure 116/55 L 100/48 L Pulse Oximetry 92 94 92 04/01/20 04:00 04/01/20 08:00 Temperature 36.6 C 36.4 C Pulse Rate 50 L 52 L Respiratory Rate 18 18 Blood Pressure 120/61 124/63 Pulse Oximetry 90 96 Intake/Output Intake/Output: Intake & Output 03/29/20 03/30/20 03/31/20 04/01/20 23:59 23:59 23:59 23:59 Intake Total 2009 1649 2190 250 Output Total 1450 1200 1475 300 Balance 560 450 715 -50 Meds/Results Medications: Active Medications Generic Name Dose Route Start Last Admin Trade Name Freq PRN Reason Stop Dose Admin Acetaminophen 650 mg 03/23/20 22:15 Acetaminophen 325 Mg Tablet PO Q4H PRN Mild Pain (1-3) or Fever Albuterol 2 puff 03/24/20 17:13 Albuterol Sulfate (*Sp) Aerosol 1 Puff INHALATION QID PRN shortness of breath or wheezing Amlodipine Besylate 10 mg 03/25/20 09:00 04/01/20 08:37 Amlodipine Besylate 5 Mg Tablet PO 10 mg DAILY TODD Administration Atorvastatin Calcium 10 mg 03/25/20 09:00 04/01/20 08:33 Atorvastatin 10 Mg Tablet PO 10 mg DAILY TODD Administration Dexamethasone Sodium Phosphate 6 mg 03/28/20 13:15 04/01/20 08:33 Dexamethasone Sod Phos Inj 4 Mg/Ml Vial IV PUSH 04/06/20 09:01 6 mg DAILY TODD Administration Enoxaparin Sodium 40 mg 03/24/20 09:05 04/01/20 08:32 Enoxaparin 40 Mg/0.4 Ml Syringe SUB-Q 40 mg Q12HR TODD Administration Remdesivir 100 mg in 250 mls @ 250 mls/hr 03/29/20 22:00 03/31/20 22:10 IVPB 04/01/20 22:59 Infused Q24H TODD Infusion Ondansetron HCl 4 mg 03/23/20 22:15 Ondansetron Inj 4
--- NOTE | 2020-04-01 11:38 | HOMEO2EVAL ---
Home Oxygen Evaluation RC: Home Oxygen (O2) Evaluation Start: 03/31/20 15:07 Freq: ONCE Status: Active Protocol: RPE Activity Type Activity Date Activity User E-Sign Co-Sign Detail Recorded Client Recorded Date Recorded By Document 04/01/20 11:00 FLORI [email or web address] 04/01/20 11:38 FLORI Document 04/01/20 11:02 FLORI [email or web address] 04/01/20 11:38 FLORI Document 04/01/20 11:04 FLORI [email or web address] 04/01/20 11:38 FLORI Document 04/01/20 11:06 FLORI [email or web address] 04/01/20 11:38 FLORI Document 04/01/20 11:10 FLORI [email or web address] 04/01/20 11:38 FLORI Document 04/01/20 11:25 FLORI [email or web address] 04/01/20 11:38 FLORI 04/01/20 04/01/20 04/01/20 11:00 11:02 11:04 Home O2 Evaluation Test Phase Resting Resting Resting Oxygen Delivery Room Air Nasal Cannula Nasal Cannula Oxygen Flow Rate (L/min) 2 3 Pulse Oximetry (90-100 %) 85 L 86 L 87 L Home Oxygen Evaluation Comments Treatment Charges O2 Evaluation 04/01/20 04/01/20 04/01/20 11:06 11:10 11:25 Home O2 Evaluation Test Phase Resting Exercise Resting Oxygen Delivery Nasal Cannula Nasal Cannula Nasal Cannula Oxygen Flow Rate (L/min) 4 4 4 Pulse Oximetry (90-100 %) 90 93 91 Home Oxygen Evaluation Comments PT REQUIRES 4 L RESTING AND WITH EXERTION Treatment Charges
--- NOTE | 2020-04-01 16:27 | PM.DS ---
DS: Admitting Diagnosis Admitting Diagnosis Admitting Diagnosis: Fall/Lung infiltrates/Covid 19 positive. DS: Discharge Diagnosis Discharge Diagnosis (1) Pneumonia due to COVID-19 virus: Code(s): U07.1 - COVID-19; J12.89 - Other viral pneumonia Status: Acute Assessment and Plan: Treated with Remdesivir Initially started on Ceftriaxone and Azithromycin later discontinued. Pulmonology consult was obtained. (2) Hypoxia: Code(s): R09.02 - Hypoxemia Status: Acute Assessment and Plan: Placed on supplemental oxygen by [place] (3) Hypertension: Qualifiers: Hypertension type: unspecified Qualified Code(s): I10 - Essential (primary) hypertension Code(s): I10 - Essential (primary) hypertension Status: Chronic Assessment and Plan: Home meds were continued. (4) GERD (gastroesophageal reflux disease): Qualifiers: Esophagitis presence: esophagitis presence not specified Qualified Code(s): K21.9 - Gastro-esophageal reflux disease without esophagitis Code(s): K21.9 - Gastro-esophageal reflux disease without esophagitis Status: Chronic Assessment and Plan: Stable home meds were continued. (5) COVID-19: Code(s): U07.1 - COVID-19 Status: Acute Assessment and Plan: Had been diagnosed with Covid 19. (6) Weakness: Code(s): R53.1 - Weakness Status: Acute Assessment and Plan: Participated with PT/OT in therapy (7) Fall: Qualifiers: Encounter type: initial encounter Qualified Code(s): W19.XXXA - Unspecified fall, initial encounter Code(s): W19.XXXA - Unspecified fall, initial encounter Status: Acute Assessment and Plan: Likely secondary to acute illness. (8) Pneumonia due to 2019 novel coronavirus: Code(s): U07.1 - COVID-19; J12.89 - Other viral pneumonia Status: Acute Assessment and Plan: Completed course of Remdecivir and systemic steroids. DS: Summary Hospital Course Hospital Course: Patient was admitted due to fall at home. Had been diagnosed with Covid prior to this was having some general malaise, decreased po intake and became very weak had fall but no LOC. Was found to be hypoxic as well. Patient was admitted to [facility], Pulmonology was consulted as well. Patient completed course of Remdesivir Participated in PT/OT Had uneventful hospital stay EXAMINATION: XR chest 1V portable INDICATION: Cough and shortness of breath TECHNIQUE: Portable AP chest at 1749 hours COMPARISON: 03/08/2018 FINDINGS: There are minimal airspace opacities of the lung bases. No pleural effusion or pneumothorax is identified. The cardiomediastinal silhouette is normal. IMPRESSION: 1. Minimal bibasilar airspace opacities, consistent with atelectasis versus pneumonia. EXAMINATION: CT brain wo con INDICATION: Weakness, fall COMPARISON: 05/28/2011 TECHNIQUE: Standard unenhanced head CT. The dose-length product (DLP) was 681.00 mGy-cm. The mA was adjusted according to patient size. Iterative reconstruction technique was employed. FINDINGS: There is no acute intraparenchymal hemorrhage. No evidence of mass lesion. No evidence of acute infarction. There is mild periventricular and subcortical hypodensity probably related to small vessel ischemic disease. There is mild prominence of the sulci and ventricles related to cerebral atrophy. Intracranial calcified cerebral atherosclerosis is noted. There are no extra-axial collections. There is no mass effect or midline shift. The orbits and soft tissues are unremarkable. There is chronic pansinusitis with slight improvement in the left maxillary sinus. Sinus surgical changes are again noted. IMPRESSION: 1. No acute intracranial abnormality. 2. Chronic sinusitis. Time Spent with Patient Time attestation: Total time spent providing and/or coordinating discharge services: Exam Narrative: Exam Narrat
[2020-04-01] MEDS: REMDESIVIR 100 MG/NS 250 ML 100 MG/250 ML BAG 250 MG IVPB (17:55)
== END 2020-04-01 19:08 | disposition home or self-care (01) | DRG 177 ==
LOC: ANHED 22:09 → ANH3MEDSUR 23:25
PROVIDERS: Family Medicine; Internal Medicine Critical Care Medicine; Admitting Provider Family Medicine; Emergency Provider Emergency Medicine; PCP Internal Medicine; Visit Provider Internal Medicine
DX: U07.1 COVID-19 (principal); J12.89 Other viral pneumonia; J11.1 Influenza due to unidentified influenza virus with other respiratory manifestations; R09.02 Hypoxemia; K21.9 Gastro-esophageal reflux disease without esophagitis; I10 Essential (primary) hypertension; E78.5 Hyperlipidemia, unspecified; R53.1 Weakness; W19.XXXA Unspecified fall, initial encounter; Z79.899 Other long term (current) drug therapy
CPT/HCPCS: 36415; 70450; 71045; 80053; 81001; 82550; 84460; 84484; 85025; 85610; 85730; 86140; 87635; 87804; 93005; 94618; 94667; 96372; 96374; 97110; 97116; 97161; 97165; 97530; 97535; 99213; 99285; A9270; C9803; G0378; G0463; J0456; J0696; J1100; J1650; J7060; U0003

== ENCOUNTER 2020-06-10 11:20 | Outpatient (CLI) | payer MEDICARE, SELFPAY ==
--- NOTE | ~2020-06-10 | CT_ITS ---
EXAMINATION:CT chest high resolution wo co DATE: 06/10/2020 11:56 INDICATION: COVID-19 pneumonia. TECHNIQUE: Computed tomography (CT) of the chest was performed without intravenous contrast. Automate d exposure control and iterative reconstruction technique were employed. The dose-length product (DLP ) was 554.15 mGy-cm. COMPARISON: CT abdomen and pelvis 07/28/17, chest single view 03/23/2020, 03/27/2020 FINDINGS: There are widespread groundglass opacities and reticular opacities in the lungs with a marielena pheral predominance and heterogeneous lung involvement. There is a 4 mm nodule in right upper lobe. C alcified left lung nodules and calcified left hilar lymph nodes are consistent with old granulomatous disease. There is a 5 mm nodule in right lower lobe. There are small pleural effusions. The heart si ze is normal. There are coronary artery calcifications. No pericardial effusion. There is mild medias tinal lymphadenopathy, likely reactive. There is mild thoracic spondylosis. IMPRESSION: 1. Diffuse lung disease, consistent with pneumonia. 2. Small pleural effusions. 3. Mild mediastinal lymphadenopathy, likely reactive. Reviewed, dictated and finalized at location A. RD TESTER
--- NOTE | 2020-06-11 14:27 | WPDSIXMINUTE ---
Six Minute Walk This is a 6 minutes walk test. The test was performed and interpreted in accordance with the 2014 ERS/ATS task force guidelines. Findings: The patient's resting room air oxygen saturation measured by pulse oximetry was 95% and her heart rate was 78 bpm. Patient ambulated for 213 meters and oxygen saturation remained 89% to 92%. Heart rate at the end of the study was 92 bpm. There are no prior studies for comparison.
--- NOTE | 2020-06-11 14:29 | WPDPFTINT ---
PFT Interpretation This is a pulmonary function test with pre and post-bronchodilator spirometry, plethysmography and diffusing capacity. The test was performed and results interpreted in accordance with the 2019 and 2005 ATS/ERS Task Force guidelines respectively using the Malik/Oliva reference equations. Findings: Spirometry: Contour the inspiratory and expiratory flow tracing are normal. The pre bronchodilator FVC is 2.85 L, 66% predicted. The pre bronchodilator FEV1 is 2.11 L, 75% predicted. The FEV1: FVC ratio 74%. The post bronchodilator FVC is 2.68 L, representing a 6% decrease. The post bronchodilator FEV1 is 1.99 L, representing a 5% decrease. Plethysmography: The total lung capacity is 4.58 L, 69% predicted. The functional residual capacity is 2.49 L, 71% predicted. The residual volume is 1.72 L, 63% predicted. Diffusing capacity: The absolute diffusion capacity is 12.9, 56% predicted. The diffusing capacity corrected for alveolar volume is 3.51, 102% predicted. Impression: There is a mild restrictive ventilatory abnormality with a normal FEV1. The spirometry is normal without evidence of an obstructive abnormality. There is no significant improvement after inhaling a single dose of albuterol. The absolute diffusing capacity is moderately decreased and normalizes when corrected for alveolar volume. There are no prior studies for comparison
== END 2020-06-10 11:21 | disposition home or self-care (01) ==
LOC: ANHIMG 11:23
PROVIDERS: Family Provider Internal Medicine; PCP Internal Medicine; Visit Provider Internal Medicine Critical Care Medicine
DX: U07.1 COVID-19 (principal); J12.82 Pneumonia due to coronavirus disease 2019; R94.2 Abnormal results of pulmonary function studies
CPT/HCPCS: 71250; 94060; 94618; 94726; 94729

== ENCOUNTER 2020-11-24 08:46 | Outpatient (CLI) | payer MEDICARE, SELFPAY ==
--- NOTE | ~2020-11-24 | NM_ITS ---
EXAMINATION: NM freddie stress w perfusion DATE: 11/24/2020 11:30 INDICATION: Abnormal electrocardiogram. Pulmonary fibrosis, unspecified. TECHNIQUE: Rest images were obtained following intravenous administration of 10.2 mCi Tc99m tetrofosm in (Myoview). The patient was infused intravenously with Lexiscan (regadenoson). Then, 30.8 mCi Tc99m tetrofosmin (Myoview) was administered intravenously, and stress images were obtained. Data was dedra nstructed into short axis and horizontal and vertical long axis SPECT images. Gated SPECT images were also obtained. COMPARISON: Myocardial perfusion imaging 05/29/2011 FINDINGS: There is no definite reversible or fixed perfusion abnormality to suggest ischemia or infar ction. There is no segmental wall motion abnormality. Left ventricular ejection fraction measures > 70%. IMPRESSION: 1. No definite ischemia or infarct. 2. Normal left ventricular ejection fraction measuring >70%. Reviewed, dictated and finalized at location A.
--- NOTE | 2020-11-24 09:59 | EST_ITS ---
Patient Info Name: Ivan Oconnor Age: 80 years : 1940 Gender: Male Ht: 69 in Wt: 230 lbs BSA: 2.29 m2 Exam Date: 11/24/2020 10:27 AM Exam Location: [facility] Stress Patient Status: Outpatient Admit Date: 11/24/2020 Staff Ordering Physician: Gemma Jeronimo MD Attending Provider: Gemma Jeronimo MD Exercise Technologist: Shaq Gómez RDCS, RT Exercise Physician: Nestor Lai DO Exam Type: CA stress freddie w NM Study Info A regadenoson stress test was performed. Summary 1. 1. Negative lexiscan stress test for ischemic ST changes by ECG criteria. 2. 2. Baseline hypertension. 3. 3. Nuclear scan to follow and will be reported separately. Please correlate with it. 4. 4. Patient informed of the above results. Protocol: Lexiscan Stress ECG Details Stage: REST Duration (min): 1 min : 51 sec HR (bpm): 58 SBP (mmHg): 146 DBP (mmHg): 66 Stage: REST Duration (min): 9 min : 12 sec HR (bpm): 61 SBP (mmHg): 146 DBP (mmHg): 66 Stage: STAGE 1 Duration (min): 1 min : 0 sec HR (bpm): 76 SBP (mmHg): 159 DBP (mmHg): 57 Stage: RECOVERY Duration (min): 1 min : 0 sec HR (bpm): 86 SBP (mmHg): 159 DBP (mmHg): 57 Stage: RECOVERY Duration (min): 2 min : 0 sec HR (bpm): 77 SBP (mmHg): 159 DBP (mmHg): 57 Stage: RECOVERY Duration (min): 3 min : 0 sec HR (bpm): 69 SBP (mmHg): 159 DBP (mmHg): 57 Stage: RECOVERY Duration (min): 4 min : 0 sec HR (bpm): --- SBP (mmHg): 159 DBP (mmHg): 57 Stage: RECOVERY Duration (min): 5 min : 0 sec HR (bpm): --- SBP (mmHg): 159 DBP (mmHg): 57 Stage: RECOVERY Duration (min): 5 min : 30 sec HR (bpm): --- SBP (mmHg): 159 DBP (mmHg): 57 Rest HR: 61 bpm Peak HR: 86 bpm Rest Sys BP: 146 mmHg Peak Sys BP: 159 mmHg Max Pred HR: 142 bpm % Max Pred HR: 61 % Target HR: 121 bpm Max RPP: 13,674 bpm*mmHg Termination Reason: Completed protocol Cardiac Symptoms: Shortness of breath, Nausea Total Time: 1 min : 0 sec Rest Aponte BP: 66 mmHg Peak Aponte BP: 57 mmHg Total Dose: 0.4 mg Resting ECG Sinus rhythm. Stress ECG No ST changes. Arrhythmias None. Report Signatures
== END 2020-11-24 08:47 | disposition home or self-care (01) ==
LOC: ANHCARD 08:53
PROVIDERS: PCP Internal Medicine; Visit Provider Internal Medicine Critical Care Medicine
DX: R06.02 Shortness of breath (principal); J84.10 Pulmonary fibrosis, unspecified
CPT/HCPCS: 78452; 93017; A9502; J2785

== ENCOUNTER 2021-02-10 14:10 | Emergency (ER) | payer MEDICARE, SELFPAY ==
--- NOTE | 2021-02-10 14:10 | ED.URI ---
HPI - URI/Sore Throat General Chief Complaint: Upper Respiratory Infection Stated Complaint: cough Time Seen by Provider: 02/10/21 14:24 Source: patient and RN notes reviewed Mode of arrival: ambulatory Limitations: no limitations History of Present Illness HPI Narrative: 80-year-old male presents with concern for 2-day history of productive cough. He reports a history of pulmonary fibrosis after a COVID-19 infection for which she was hospitalized for 9 days. He reports he is currently undergoing pulmonary rehab. He denies fever, body aches, chills, sweats. Reports taking Mucinex without relief. MD elicited complaint: cough Related Data Home Medications Medication Instructions Recorded Confirmed omeprazole magnesium [Prilosec OTC] 20 mg PO DAILY 04/04/19 12/10/20 atorvastatin 10 mg PO DAILY 03/22/20 12/10/20 propranolol 60 mg capsule,24 60 mg PO DAILY 07/08/20 12/10/20 hr,extended release Centrum Silver Ultra Men's 1 tablet DAILY 12/10/20 12/10/20 amlodipine 10 mg PO DAILY 12/10/20 12/10/20 loratadine [Claritin] 10 mg DAILY 12/10/20 12/10/20 Allergies Allergy/AdvReac Type Severity Reaction Status Date / Time hydrocodone [From Vicodin] Allergy Mild BLOATING,NA Verified 07/08/20 14:41 SUEA Review of Systems Review of Systems: CONSTITUTIONAL: Reports malaise. Denies chills, sweats, or fever. EYES: Denies visual changes, redness, or discharge. ENT: Reports rhinorrhea, congestion. Denies sinus pain, otalgia and sore throat. CARDIOVASCULAR: Denies chest pain, palpitations, or edema. RESPIRATORY: Reports productive cough. Denies dyspnea. GASTROINTESTINAL: Denies abdominal pain, nausea, vomiting, diarrhea SKIN: Denies rash or itching. MUSCULOSKELETAL: Denies myalgia. NEUROLOGIC: Denies headache. All systems reviewed & are unremarkable except as noted in HPI and below PMFSH Past Medical History Medical History GERD (gastroesophageal reflux disease) Hypertension Family History Family History (Updated 12/10/20 @ 08:30 by Nicole Diaz RN) Unknown Unknown family medical history Mother Cerebrovascular accident Social History Social History Smoking status: Never smoker Alcohol intake: current Drinks per week: 5 Substance use: never Substance use type: does not use Gender identity (if verbalized by the patient): Male Spiritual care concerns: No Comments At time of signature, agree with nursing past medical, surgical, social and family history. There is no relevant family history pertinent to the presenting complaint Exam Narrative: GENERAL: Well-appearing, well-nourished, and in no acute distress. HEAD: Normocephalic EYES: PERRLA, conjunctivae clear ENT: Nares clear, clear discharge. Mucous membranes moist. TM pearly parks with dull light reflex bilaterally; no tragal tenderness. Oropharynx not erythematous without lesions. Tonsils not enlarged and without exudate, no drooling, no hoarseness, no trismus, uvula midline. NECK: Supple. No lymphadenopathy CHEST: Clear to auscultation, breath sounds equal. No wheezing, rhonchi, rales, or stridor. No respiratory distress, speaks in full sentences. Cough noted HEART: Regular rate and rhythm. No murmur heard. SKIN: Warm, dry, no rash. NEURO: Alert and oriented x3. PSYCH: Normal mood and affect Course Course Emergency Course: Patient is aware of diagnosis, understands and agrees to treatment plan. Anticipatory guidance given. Patient agrees to follow-up as directed and is aware of reasons to seek care at the emergency department. Portions of this record may have been created with voice recognition software Vital Signs Vital signs: Reviewed. MDM - URI/Sore Throat MDM Narrative Medical decision making narrative: Differential diagnosis considered: Barragan virus, strep pharyngitis, allergic rhinitis, upper respiratory tract infecti
[2021-02-10 14:16] VITALS: BP 163/69; PULSE 62; RESP 16; TEMP 36.6; O2SAT 97
== END 2021-02-10 14:38 | disposition home or self-care (01) ==
PROVIDERS: Emergency Provider Nurse Practitioner; PCP Internal Medicine
DX: J06.9 Acute upper respiratory infection, unspecified (principal); R05.9 Cough, unspecified; K21.9 Gastro-esophageal reflux disease without esophagitis; I10 Essential (primary) hypertension; J84.10 Pulmonary fibrosis, unspecified
CPT/HCPCS: 99213; G0463

== ENCOUNTER 2021-03-18 09:30 | Outpatient (RCR) | payer MEDICARE, SELFPAY ==
--- NOTE | 2021-01-17 09:59 | PCCPR ---
pt cxl 01/18 & 01/21 due to travel
--- NOTE | 2021-02-10 10:54 | PCCPR ---
Absent-Khai called in stating he has bronchitis and is weak. Hopes to return Sunday.
--- NOTE | 2021-03-22 15:45 | PCCPR ---
Addendum entered by Pretty Medeiros RN 04/14/21 11:02: Spoke with Khai states his ankle is still sore and not sure he could walk far on it. States he is soaking in epson salts and hot water. He has not been to the MD for exam or x rays. Encouraged him to have it looked at since it is still this sore over 3 weeks later. Explained we can have him on hold little longer and would check back with him in 2 weeks. Original Note: Khai absent today, he called and left a message stating that he fell at home and is very sore and may be out the rest of the week.
--- NOTE | 2021-04-22 13:25 | PCCPR ---
Addendum entered by Paulina Rhodes 05/13/21 09:14: Pt has broken leg and does not plan to return to pul rehab. DC patient, sent DC summary to MD. Addendum entered by Pretty Medeiros RN 04/26/21 10:34: Khai did not show for class today. Called and LM to find out if he did see the MD and his plan for return or dc. Original Note: Continued Absence Spoke with Khai last week states his ankle is still bothering him and is soaking it in epson salts. Enocuraged to seek medical attn since it has been a month. Requested he give us a call when he know more. Today states he is in [place] and will return on Sunday. States he will see Dr Saab on Sunday. Asked he let us know his ability or plan for return.
== END 2021-03-18 23:59 | disposition home or self-care (01) ==
LOC: ANHCPREHAB 09:30
PROVIDERS: PCP Internal Medicine; Visit Provider Internal Medicine Critical Care Medicine
DX: J84.10 Pulmonary fibrosis, unspecified (principal)
CPT/HCPCS: 97150; G0424

== ENCOUNTER 2021-05-23 13:19 | Emergency (ER) | payer MEDICARE, SELFPAY ==
--- NOTE | 2021-05-23 13:23 | ED.URI ---
HPI - URI/Sore Throat General Chief Complaint: Upper Respiratory Infection Stated Complaint: Sore throat, cough Time Seen by Provider: 05/23/21 13:23 Source: patient and RN notes reviewed History of Present Illness HPI Narrative: Patient is a 80-year-old male who presents the urgent care with complaints of a cough, postnasal drainage, runny nose. Patient states that it started 1 week ago. Patient states he has been taking Mucinex. Denies of any other illness in the home or contact with sick individuals. Patient denies of any fever, chills, nausea, vomiting, shortness of breath or chest pain. Patient has been COVID vaccinated. No other acute complaints. No acute distress noted. Patient read the plan of care. Some parts of this dictation were generated by voice recognition software and may contain typographical and/or grammatical inaccuracies. Related Data Home Medications Medication Instructions Recorded Confirmed omeprazole magnesium [Prilosec OTC] 20 mg PO DAILY 04/04/19 05/23/21 atorvastatin 10 mg PO DAILY 03/22/20 05/23/21 propranolol 60 mg capsule,24 60 mg PO DAILY 07/08/20 05/23/21 hr,extended release Centrum Silver Ultra Men's 1 tablet PO DAILY 12/10/20 05/23/21 amlodipine 10 mg PO DAILY 12/10/20 05/23/21 loratadine [Claritin] 10 mg PO DAILY 12/10/20 05/23/21 aspirin [Adult Aspirin EC Low 81 mg PO DAILY 05/23/21 05/23/21 Strength] Allergies Allergy/AdvReac Type Severity Reaction Status Date / Time hydrocodone [From Vicodin] Allergy Mild BLOATING,NA Verified 05/23/21 13:30 SUEA Review of Systems Review of Systems: CONSTITUTIONAL: Denies fever, chills, or sweats. EYES: Denies visual changes, redness, or discharge. ENT: Reports of rhinorrhea and postnasal drainage CARDIOVASCULAR: Denies chest pain, palpitations, or edema. RESPIRATORY: Reports a productive cough without dyspnea GASTROINTESTINAL: Denies abdominal pain, nausea, vomiting, or diarrhea. GENITOURINARY: Denies dysuria or hematuria. SKIN: Denies rash or itching. MUSCULOSKELETAL: Denies back pain, joint pain, or myalgia. NEUROLOGIC: Denies headache, numbness, or weakness. All other systems reviewed are negative, except as documented in HPI. [facility] Past Medical History Medical History (Updated 05/23/21 @ 13:36 by CHASE Sim) Fracture of right fibula, shaft GERD (gastroesophageal reflux disease) Hypertension Family History Family History Unknown Unknown family medical history Mother Cerebrovascular accident Social History Social History Smoking status: Never smoker Alcohol intake: current Drinks per week: 5 Substance use: never Substance use type: does not use Gender identity (if verbalized by the patient): Male Spiritual care concerns: No Comments At the time of my signature, I reviewed and agree with the nursing past medical, surgical, social, and family history. There is no relevant family history pertinent to the patient complaint. Exam Narrative: GENERAL: This is a well-nourished, well-developed patient, in no apparent distress. HEAD: normocephalic, atraumatic. EYES: PERRL. Sclera clear/white. Vision is grossly intact. Scant yellow drainage from the right EARS: External ears normal, auditory canals clear and without drainage, unable to visualize bilateral TMs due to cerumen impaction. Hearing grossly intact. NOSE: External nose normal with no obvious nasal discharge, nares without redness, clear to yellow rhinorrhea. THROAT: Mucous membranes moist, posterior pharynx clear. Moderate postnasal drainage NECK: Neck supple CARDIOVASCULAR: Regular rate and rhythm without murmurs, gallops, or rubs. RESPIRATORY: Slight crackles bibasilar otherwise clear. Yellow productive cough on exam SKIN: warm, intact with no suspicious lesions or rash, good texture and turgor. NEURO: awake, alert, and oriented to
[2021-05-23 13:25] VITALS: BP 148/68; PULSE 60; RESP 12; TEMP 36.7; O2SAT 99
[2021-05-23 13:32] VITALS: BP 148/68; PULSE 60; RESP 12; TEMP 36.7; O2SAT 99
== END 2021-05-23 13:42 | disposition home or self-care (01) ==
PROVIDERS: Emergency Provider Nurse Practitioner Family; PCP Internal Medicine
DX: J40 Bronchitis, not specified as acute or chronic (principal); K21.9 Gastro-esophageal reflux disease without esophagitis; I10 Essential (primary) hypertension
CPT/HCPCS: 99213; G0463

== ENCOUNTER 2021-08-18 15:17 | Emergency (ER) | payer MEDICARE, SELFPAY ==
[2021-08-18 15:20] VITALS: BP 157/66; PULSE 68; RESP 20; TEMP 36.9; O2SAT 95
[2021-08-18 15:44] LABS: Basophils Absolute Auto 0.1 K/mm3 (0.0-0.1); Basophils Percent Auto 0.7 % (0.2-1.2); Eosinophils Absolute Auto 0.2 K/mm3 (0-0.3); Eosinophils Percent Auto 2.6 % (0-4.4); Hematocrit 42.6 % (42.0-52.0); Hemoglobin 14.8 g/dL (14.0-18.0); Immature Granulocyte Absolute 0.01 K/mm3 (0.00-0.031); Immature Granulocyte Percent A 0.1 % (0-0.5); Lymphocytes Absolute Auto 1.21 K/mm3 (0.9-3.2); Lymphocytes Percent Auto 17.3 % (18.3-44.2); Mean Corpuscular HGB Conc 34.7 g/dl (32-36); Mean Corpuscular Hemoglobin 30.2 pg (26-34); Mean Corpuscular Volume 86.9 fl (80-100); Mean Platelet Volume 9.7 fl (7.4-10.4); Monocytes Absolute Auto 0.8 K/mm3 (0.1-0.6); Neutrophils Absolute Auto 4.7 K/mm3 (1.3-6.7); Neutrophils Percent Auto 67.3 % (45.5-73.1); Platelet Count Result 194 k/mm3 (150-375); Red Cell Distribution Width 12.9 % (11.5-14.5)
[2021-08-18 15:56] LABS: Alanine Aminotransferase 29 U/L (4-50); Albumin Level 4.7 g/dL (3.5-5.1); Alkaline Phosphatase 100 U/L (38-126); Anion Gap 9 mmol/L (8-16); Aspartate Amino Transferase 28 U/L (17-59); Bilirubin,Total 0.8 mg/dL (0.2-1.3); Blood Urea Nitrogen 15 mg/dL (9-20); Calcium 9.3 mg/dL (8.4-10.2); Carbon Dioxide 24 mmol/L (22-30); Chloride 102 mmol/L (98-107); Estimated CRCL calculation 48 ml/min; Estimated Glomerular Filt Rate > 60; Glucose 117 mg/dL (65-110); Lipase 59 U/L (23-300); Potassium 4.1 mmol/L (3.4-5.0); Sodium 135 mmol/L (137-145)
[2021-08-18 20:08] LABS: Appearance Urine Clear (Clear); Bilirubin Urine 1+ (Negative); Blood Urine Negative (Negative); Color Urine Yellow (Yellow); Glucose Urine UA Negative (Negative); Ketones Urine Negative (Negative); Leukocyte Esterase Ur Negative LEU/UL (Negative); Nitrate Urine Negative (Negative); Protein Urine 1+ mg/dL (Negative); Specific Grav Ur 1.025 (1.001-1.035); Urobilinogen Urine 0.2 mg/dL (<2.0)
[2021-08-18 20:13] LABS: Bacteria Urine Trace /hpf; Mucus Urine Heavy /lpf; RBC Urine 0-2 /hpf (0-2); WBC Urine 0-3 /hpf
[2021-08-18 20:14] VITALS: BP 152/64; PULSE 65
[2021-08-18 20:15] LABS: Add Urine Microscopic? YES
[2021-08-18 20:16] VITALS: BP 152/66; PULSE 64
[2021-08-18 20:18] VITALS: BP 140/57; PULSE 58
[2021-08-18 20:32] LABS: SARS-CoV-2 RNA PCR Negative
--- NOTE | 2021-08-18 21:42 | ED.NAVMDI ---
HPI - Nausea/Vomiting/Diarrhea General Chief complaint: Nausea/Vomiting/Diarrhea Stated complaint: diarrhea Time Seen by Provider: 08/18/21 19:27 History of Present Illness HPI Narrative: Patient is a 81-year-old male who presents ER with concerns for COVID-19. Reports he stood up out of his chair today and became lightheaded and fell down. Did not strike his head or lose consciousness. He had 1 episode of diarrhea. No blood in the stool. Reports only other time he has been weak as when he had COVID continues to he may have it again. He has no runny nose or sore throat or productive cough. No fevers or chills. No known sick contacts. No loss of taste or smell. Related Data Home Medications Medication Instructions Recorded Confirmed omeprazole magnesium [Prilosec OTC] 20 mg PO DAILY 04/04/19 08/11/21 atorvastatin 10 mg PO DAILY 03/22/20 08/11/21 propranolol 60 mg capsule,24 60 mg PO DAILY 07/08/20 08/11/21 hr,extended release Centrum Silver Ultra Men's 1 tablet PO DAILY 12/10/20 08/11/21 amlodipine 10 mg PO DAILY 12/10/20 08/11/21 aspirin [Adult Aspirin EC Low 81 mg PO DAILY 05/23/21 08/11/21 Strength] Allergies Allergy/AdvReac Type Severity Reaction Status Date / Time hydrocodone [From Vicodin] Allergy Mild BLOATING,NA Verified 08/18/21 20:41 SUEA Review of Systems Review of Systems: All systems reviewed & are unremarkable except as noted in HPI and below Constitutional: Constitutional: Denies chills, Reports fatigue and Denies fever(s) ENT: Denies nasal congestion and Denies sore throat Cardiovascular: Cardiovascular: Denies chest pain, Denies rapid heart rate and Denies radiating jaw, neck or arm pain Respiratory: Respiratory: Denies cough, Denies dyspnea and Denies wheezing Gastrointestinal: Gastrointestinal: Denies abdominal pain, Reports diarrhea, Denies nausea and Denies vomiting Neurologic: Reports dizziness, Denies syncope, Denies focal weakness and Denies numbness PMFSH Past Medical History Medical History (Updated 08/18/21 @ 21:45 by David Lewis MD) Fracture of right fibula, shaft GERD (gastroesophageal reflux disease) Hypertension Family History Family History Unknown Unknown family medical history Mother Cerebrovascular accident Social History Social History Smoking status: Never smoker Alcohol intake: current Drinks per week: 5 Substance use: never Substance use type: does not use Gender identity (if verbalized by the patient): Male Spiritual care concerns: No Exam Narrative: GENERAL: Well-appearing, well-nourished, and in no acute distress. HEAD: Normocephalic, atraumatic. EYES: PERRL and EOMI. CHEST: Clear to auscultation. No respiratory distress. HEART: Regular rate and rhythm. Normal peripheral pulses. ABDOMEN: Soft, nontender, nondistended. EXTREMITIES: Normal range of motion. 1+ edema. SKIN: Warm, dry, no rash. NEURO: NAlert and oriented x3. PSYCH: Normal mood and affect. Course Course Emergency Course: Patient resting comfortably. He had a modest drop in his blood pressure with sitting to standing. Given half liter IV fluid. Feels improved. COVID-negative. Labs unremarkable otherwise. Discharge home. Vital Signs Vital signs: Vital Signs Temperature 98.5 F 08/18/21 15:20 Pulse Rate 68 08/18/21 15:20 Respiratory Rate 20 08/18/21 15:20 Blood Pressure 157/66 H 08/18/21 15:20 Pulse Oximetry 95 08/18/21 15:20 Temperature 98.5 F 08/18/21 15:20 Pulse Rate 58 L 08/18/21 20:18 Respiratory Rate 20 08/18/21 15:20 Blood Pressure 140/57 L 08/18/21 20:18 Pulse Oximetry 95 08/18/21 15:20 MDM - Nausea/Vomiting/Diarrhea Lab Data Result diagrams: 08/18/21 15:26 08/18/21 15:26 Labs: Lab Results 08/18/21 08/18/21 08/18/21 Range/Units 15:26 15:26 19:50 WBC 7.0
[2021-08-18] MEDS: SODIUM CHLORIDE 0.9% IV 500 ML 999 ML IV CONT (21:56)
[2021-08-18 22:56] VITALS: BP 167/73; PULSE 62; RESP 20; O2SAT 100
== END 2021-08-18 22:57 | disposition home or self-care (01) ==
PROVIDERS: Emergency Provider Emergency Medicine; PCP Internal Medicine
DX: R42 Dizziness and giddiness (principal); E86.0 Dehydration; Z20.822 Contact with and (suspected) exposure to COVID-19; I10 Essential (primary) hypertension; K21.9 Gastro-esophageal reflux disease without esophagitis; Z79.82 Long term (current) use of aspirin
CPT/HCPCS: 36415; 80053; 81001; 83690; 85025; 96360; 99283; C9803; J7040; U0003; U0005

== ENCOUNTER 2022-11-04 09:59 | Emergency (ER) | payer MEDICARE, SELFPAY ==
--- NOTE | ~2022-11-04 | US_ITS ---
US scrotum doppler INDICATION: Right testicular pain TECHNIQUE: Testicular sonogram utilizing grayscale and color Doppler FINDINGS: The testes are normal in size and appearance. No focal lesions are seen. The right testes measures 4.5 x 3.1 x 2.6 cm centimeters, and the left testis measures 4.7 x 2.8 x 3.4 cm cm. There is normal vascular flow to both testes. The right and left epididymides appear normal. There is a large right hydrocele. No evidence for varicocele. IMPRESSION: 1. Large right hydrocele. Reviewed, dictated and finalized at location A. IMPRESSION: 1. Large right hydrocele.
[2022-11-04 10:01] VITALS: BP 194/69; PULSE 68; RESP 14; TEMP 36.4; O2SAT 97
[2022-11-04 10:25] LABS: Basophils Absolute Auto 0.1 K/mm3 (0.0-0.1); Basophils Percent Auto 0.8 % (0.2-1.2); Eosinophils Absolute Auto 0.4 K/mm3 (0-0.3); Eosinophils Percent Auto 4.9 % (0-4.4); Hematocrit 39.9 % (42.0-52.0); Hemoglobin 13.6 g/dL (14.0-18.0); Immature Granulocyte Absolute 0.02 K/mm3 (0.00-0.031); Immature Granulocyte Percent A 0.2 % (0-0.5); Lymphocytes Absolute Auto 2.34 K/mm3 (0.9-3.2); Lymphocytes Percent Auto 27.3 % (18.3-44.2); Mean Corpuscular HGB Conc 34.1 g/dl (32-36); Mean Corpuscular Hemoglobin 30.3 pg (26-34); Mean Corpuscular Volume 88.9 fl (80-100); Mean Platelet Volume 10.1 fl (7.4-10.4); Monocytes Absolute Auto 0.9 K/mm3 (0.1-0.6); Monocytes Percent Auto 9.9 % (2.6-8.5); Neutrophils Absolute Auto 4.9 K/mm3 (1.3-6.7); Neutrophils Percent Auto 56.9 % (45.5-73.1); Platelet Count Result 221 k/mm3 (150-375); Red Blood Count 4.49 M/mm3 (4.6-6.20); Red Cell Distribution Width 12.8 % (11.5-14.5); White Blood Count 8.6 K/mm3 (4.5-10.0)
[2022-11-04 10:36] LABS: Alanine Aminotransferase 31 U/L (6-50); Albumin Level 4.5 g/dL (3.5-5.1); Alkaline Phosphatase 77 U/L (38-126); Anion Gap 5 mmol/L (8-16); Aspartate Amino Transferase 28 U/L (17-59); Bilirubin,Total 0.5 mg/dL (0.2-1.3); Blood Urea Nitrogen 33 mg/dL (9-20); Calcium 9.8 mg/dL (8.4-10.2); Carbon Dioxide 30 mmol/L (22-30); Chloride 104 mmol/L (98-107); Estimated CRCL calculation 35 ml/min; Estimated Glomerular Filt Rate 42; Glucose 89 mg/dL (65-110); Sodium 139 mmol/L (137-145)
[2022-11-04 10:51] LABS: Appearance Urine Clear (Clear); Bilirubin Urine Negative (Negative); Blood Urine Negative (Negative); Color Urine Yellow (Yellow); Glucose Urine UA Negative (Negative); Ketones Urine Negative (Negative); Leukocyte Esterase Ur Negative LEU/UL (Negative); Nitrate Urine Negative (Negative); Protein Urine Negative (Negative); Specific Grav Ur 1.008 (1.001-1.035); Urobilinogen Urine 0.2 mg/dL (<2.0); pH Urine 5.5 (5.0-9.0)
[2022-11-04 11:43] LABS: Add Urine Microscopic? NO
--- NOTE | 2022-11-04 12:05 | ED.GENADULT ---
HPI - General Adult General Chief complaint: Urogenital-Male Stated complaint: pain in R groin Time Seen by Provider: 11/04/22 10:09 History of Present Illness HPI narrative: 82-year-old male present to the emergency department for evaluation of 2 weeks of right-sided testicular pain. Patient reports when he has increased activity he has pulling on the right side. 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 Related Data Home Medications Medication Instructions Recorded Confirmed omeprazole magnesium 20 mg 20 mg PO DAILY 04/04/19 08/11/21 tablet,delayed release (Prilosec OTC) atorvastatin 10 mg tablet 10 mg PO DAILY 03/22/20 08/11/21 propranolol 60 mg capsule,24 60 mg PO DAILY 07/08/20 08/11/21 hr,extended release Centrum Silver Ultra Men's 1 tablet PO DAILY 12/10/20 08/11/21 amlodipine 10 mg tablet 10 mg PO DAILY 12/10/20 08/11/21 aspirin 81 mg tablet,delayed 81 mg PO DAILY 05/23/21 08/11/21 release Allergies Allergy/AdvReac Type Severity Reaction Status Date / Time hydrocodone [From Vicodin] Allergy Mild BLOATING,NA Verified 11/04/22 10:44 SUEA Review of Systems Review of Systems: All systems reviewed & are unremarkable except as noted in HPI and below PMFSH Past Medical History Medical History (Updated 11/04/22 @ 14:17 by Compa Amaro MD) Fracture of right fibula, shaft GERD (gastroesophageal reflux disease) Hypertension Family History Family History Unknown Unknown family medical history Mother Cerebrovascular accident Social History Social History Smoking status: Never smoker Alcohol intake: current Drinks per week: 5 Substance use: never Substance use type: does not use Gender identity (if verbalized by the patient): Male Spiritual care concerns: No Exam Narrative: APPEARANCE: Well appearing, no pain, no distress, well-nourished. HEAD: normocephalic, atraumatic. EYES: PERRLA/EOMI, conjunctivae clear. NOSE: Normal no drainage EARS:TMS clear with good light reflex. RESPIRATORY: Airway patent, respirations nonlabored. Clear to auscultation bilaterally, no rales, rhonchi, wheezing. CARDIOVASCULAR: Regular rate and rhythm without murmurs rubs or gallops. ABDOMINAL: Soft, nontender, nondistended, normal bowel sounds Genital exam: Right-sided testicular tenderness, no significant edema, erythema or tenderness to palpation. MUSCULOSKELETAL: Moves all extremities. Strength/ROM intact, No edema, No calf tenderness. NEURO: Alert. Cranial nerves II through XII intact. Grossly intact SKIN: Warm, dry. Normal Color Course Course Emergency Course: 82-year-old male presented emergency department for evaluation of right-sided testicular pain. Scrotal exam shows no evidence of erythema, edema or tenderness to palpation. Patient was afebrile with no leukocytosis. Patient's CMP was similar to his baseline. UA showed no evidence of infection. Ultrasound did show a large right-sided hydrocele. Patient was provided follow-up with urology and was updated the results of his imaging. All questions and concerns were addressed and patient was comfortable at time of discharge. Vital Signs Vital signs: Vital Signs Temperature 97.5 F L 11/04/22 10:01 Pulse Rate 68 11/04/22 10:01 Respiratory Rate 14 11/04/22 10:01 Blood Pressure 194/69 H 11/04/22 10:01 Pulse Oximetry 97 11/04/22 10:01 Oxygen Delivery Room Air 11/04/22 10:01 Temperature 97.5 F L 11/04/22 10:01 Pulse Rate 72 11/04/22 14:24 Respiratory Rate 16 11/04/22 14:24 Blood Pressure 172/71 H 11/04/22 14:24 Pulse Oximetry 98 11/04/22 14:24 Oxygen Delivery Room Air 11/04/22 10:01 Medical Decision Making Differential Diagnosis Differential Diagnosis: Cellulitis, hernia, hydrocel
--- NOTE | 2022-11-04 12:52 | PC.NURSE ---
pt in ultrasound at this time.
[2022-11-04 14:24] VITALS: BP 172/71; PULSE 72; RESP 16; O2SAT 98
== END 2022-11-04 14:25 | disposition home or self-care (01) ==
PROVIDERS: Emergency Provider Emergency Medicine; PCP Internal Medicine
DX: N43.3 Hydrocele, unspecified (principal); I10 Essential (primary) hypertension
CPT/HCPCS: 36415; 76870; 80053; 81003; 85025; 93976; 99284

== ENCOUNTER 2022-12-12 04:47 | Emergency (ER) | payer MEDICARE, SELFPAY ==
[2022-12-12] VITALS (28 sets, daily range): BP systolic 156–217; BP diastolic 63–121; PULSE 66–68; RESP 14; TEMP 36.8; O2SAT 93–99
--- NOTE | ~2022-12-12 | US_ITS ---
EXAMINATION: US scrotum doppler DATE: 12/12/2022 10:02 INDICATION: Testicular pain TECHNIQUE: Testicular sonogram utilizing grayscale and Doppler COMPARISON: 11/04/2022 FINDINGS: The right testis measures 3.7 x 3.1 x 3.4 cm. The left testis measures 4.0 x 3.4 x 3.1 cm. Symmetric normal grayscale appearance to both testes. There is normal vascular flow to both testes. The right e pididymis is normal with normal vascular flow. The left epididymis is normal with normal vascular selam w. No varicocele. Moderate sized right and small left hydroceles. IMPRESSION: 1. Large sized right and small left hydroceles. Reviewed, dictated and finalized at location A.
--- NOTE | 2022-12-12 10:11 | ED.MALEGU ---
HPI - Male Genitourinary General Chief complaint: Urogenital-Male Stated complaint: groin pain Time Seen by Provider: 12/12/22 09:10 Source: patient Mode of arrival: EMS Limitations: no limitations History of Present Illness HPI Narrative: This is a 82 year old male that presents to the ER for testicular pain ongoing over the last couple of months. Reports pain and swelling to the right testicle. Reports worse with urination. He has an appointment to see urology in about a week, but reports he does not think he can wait due to the pain. Denies fever, or hematuria. Related Data Home Medications Medication Instructions Recorded Confirmed omeprazole magnesium 20 mg 20 mg PO DAILY 04/04/19 08/11/21 tablet,delayed release (Prilosec OTC) atorvastatin 10 mg tablet 10 mg PO DAILY 03/22/20 08/11/21 propranolol 60 mg capsule,24 60 mg PO DAILY 07/08/20 08/11/21 hr,extended release Centrum Silver Ultra Men's 1 tablet PO DAILY 12/10/20 08/11/21 amlodipine 10 mg tablet 10 mg PO DAILY 12/10/20 08/11/21 aspirin 81 mg tablet,delayed 81 mg PO DAILY 05/23/21 08/11/21 release Allergies Allergy/AdvReac Type Severity Reaction Status Date / Time hydrocodone [From Vicodin] Allergy Mild BLOATING,NA Verified 12/12/22 09:11 SUEA Review of Systems Review of Systems: CONSTITUTIONAL: Denies fever GENITOURINARY: Reports dysuria. Denies hematuria SKIN: Denies rash All systems reviewed & are unremarkable except as noted in HPI and below PMFSH Past Medical History Medical History (Updated 12/12/22 @ 16:01 by Edie Levy PA-C) Fracture of right fibula, shaft GERD (gastroesophageal reflux disease) Hypertension Family History Family History Unknown Unknown family medical history Mother Cerebrovascular accident Social History Social History Smoking status: Never smoker Alcohol intake: current Drinks per week: 5 Substance use: never Substance use type: does not use Gender identity (if verbalized by the patient): Male Spiritual care concerns: No Exam Narrative: GENERAL: Well-appearing, well-nourished, and in no acute distress. HEAD: Normocephalic, atraumatic. EYES: EOMI. CHEST: Clear to auscultation. No respiratory distress. No wheezes rales or rhonchi HEART: Regular rate and rhythm. No murmur heard. Normal peripheral pulses. EXTREMITIES: Normal range of motion. No edema. SKIN: Warm, dry, no rash. NEURO: No focal deficits. Alert and oriented x3. PSYCH: Normal mood and affect MALE GENITAL: Normal appearing scrotum without erythema or notable edema. Nontender to palpation of the testicles Course Course Emergency Course: Patient and family updated on work-up. Spoke with Urology about patient and workup. Odilia did offer to come down and see the patient after clinic. Patient would like to wait Odilia came down and spoke with patient and evaluated him. He will follow up in clinic for further management Consultations Consultation #1: Spoke with Urology about patient and workup. Odilia did offer to come down and see the patient after clinic. Date: 12/12/22 Vital Signs Vital signs: Vital Signs Temperature 98.2 F 12/12/22 04:54 Pulse Rate 66 12/12/22 04:54 Respiratory Rate 14 12/12/22 04:54 Blood Pressure 192/94 H 12/12/22 04:54 Pulse Oximetry 99 12/12/22 04:54 Oxygen Delivery Room Air 12/12/22 04:54 Temperature 98.2 F 12/12/22 04:54 Pulse Rate 68 12/12/22 13:48 Respiratory Rate 14 12/12/22 04:54 Blood Pressure 156/71 H 12/12/22 15:32 Pulse Oximetry 98 12/12/22 15:51 Oxygen Delivery Room Air 12/12/22 04:54 MDM - Male Genitourinary MDM Narrative Medical decision making narrative: Patient presents emergency department for testicular pain that has been going on for several months. He is afebrile and nontoxic-appearing. No con
[2022-12-12] MEDS: ACETAMINOPHEN 500 MG TABLET 1000 MG PO (10:34)
[2022-12-12] MEDS: hydroCHLOROthiazide 25 MG TABLET PO (10:34)
[2022-12-12] MEDS: VALSARTAN 160 MG TABLET 320 MG PO (10:35)
[2022-12-12 12:42] LABS: Appearance Urine Clear (Clear); Bacteria Urine None Seen /hpf; Bilirubin Urine Negative (Negative); Blood Urine Negative (Negative); Color Urine Yellow (Yellow); Glucose Urine UA Negative (Negative); Ketones Urine Trace mg/dL (Negative); Leukocyte Esterase Ur Negative LEU/UL (Negative); Nitrate Urine Negative (Negative); Non Pathogenic Casts 0-2; Protein Urine Trace mg/dL (Negative); RBC Urine 0-2 /hpf (0-2); Specific Grav Ur 1.023 (1.001-1.035); Squamous Epithelial Cell Urine None seen /hpf (Few); WBC Urine 0-5 /hpf; pH Urine 5.5 (5.0-9.0)
[2022-12-12 13:06] LABS: Add Urine Microscopic? YES
[2022-12-12] MEDS: PROPRANOLOL HCL 60 MG CAPSULE CR PO (13:48)
--- NOTE | 2022-12-12 16:08 | WPDURCON ---
Assessment and Plan Assessment and plan (1) Hydrocele: Qualifiers: Hydrocele type: unspecified Qualified Code(s): N43.3 - Hydrocele, unspecified Code(s): N43.3 - Hydrocele, unspecified Status: Acute Assessment and Plan: Pt. to f/u next week as planned to discuss hydrocelectomy. No need for surgical intervention at this time or antibiotics. Elevate scrotum with support. Take NSAID's, apply Ice. Ok to discharge home. Urology Consult Note HPI Date Seen: 12/12/22 Time Seen: 16:08 Primary Care Provider: Jarek Armenta, Consult Narrative Reason for consult: Scrotal Edema/Hydrocele Narrative: Ivan Oconnor is a 82 year old male who presented to the ER today for worsening pain in his scrotum and dysuria. UA is normal and his scrotal US shows Large sized right and small left hydroceles. As compared to his scrotal US ordered by Dr. Lyons on 11/04/22 not much change: Large right sided hydrocele. He has no fever, denies hematuria, urgency or frequency. He was seen in the office on 11/04/22 and treated with a course of Ciprofloxacin 500mg which showed no improvement. Dr. Lyons offered a hydrocelectomy if no improvement on Ciprofloxacin. He has been to our ER and [facility] ER twice for the pain. He states it's so bad he can hardly stand or walk. Review of Systems Cardiovascular: Cardiovascular: Reports no additional cardiovascular complaints Respiratory: Respiratory: Reports no additional respiratory complaints Gastrointestinal: Gastrointestinal: Denies abdominal pain, Denies nausea and Denies vomiting Genitourinary: Genitourinary: Denies hematuria, Reports genital pain, Reports dysuria, Denies flank pain, Denies testicular pain, Denies urinary frequency, Denies urinary hesitancy, Denies urinary incontinence and Denies urinary urgency [facility] Past Medical History Medical History Fracture of right fibula, shaft GERD (gastroesophageal reflux disease) Hypertension Family History Family History Unknown Unknown family medical history Mother Cerebrovascular accident Social History Social History Smoking status: Never smoker Alcohol intake: current Drinks per week: 5 Substance use: never Substance use type: does not use Gender identity (if verbalized by the patient): Male Spiritual care concerns: No Meds Home Medications and Allergies Home Medications Medication Instructions Recorded Confirmed Type omeprazole magnesium 20 mg 20 mg PO DAILY 04/04/19 08/11/21 History tablet,delayed release (Prilosec OTC) atorvastatin 10 mg tablet 10 mg PO DAILY 03/22/20 08/11/21 History propranolol 60 mg capsule,24 60 mg PO DAILY 07/08/20 08/11/21 History hr,extended release Centrum Silver Ultra Men's 1 tablet PO DAILY 12/10/20 08/11/21 History amlodipine 10 mg tablet 10 mg PO DAILY 12/10/20 08/11/21 History aspirin 81 mg tablet,delayed 81 mg PO DAILY 05/23/21 08/11/21 History release Allergies Allergy/AdvReac Type Severity Reaction Status Date / Time hydrocodone [From Vicodin] Allergy Mild BLOATING,NA Verified 12/12/22 09:11 SUEA Vital Signs Vital Signs - 24 hr 12/12/22 04:54 12/12/22 10:46 12/12/22 09:13 Temperature 98.2 F Pulse Rate 66 Respiratory Rate 14 Blood Pressure 192/94 H 166/83 H Pulse Oximetry 99 96 Oxygen Delivery Room Air 12/12/22 09:16 12/12/22 10:00 12/12/22 10:01 Temperature Pulse Rate Respiratory Rate Blood Pressure 212/121 H Pulse Oximetry 98 97 97 Oxygen Delivery 12/12/22 10:29 12/12/22 10:48 12/12/22 11:02 Temperature Pulse Rate Respiratory Rate Blood Pressure 166/83 H 180/80 H Pulse Oximetry 97 Oxygen Delivery 12/12/22 11:32 12/12/22 11:47 12/12/22 12:02 Temperature Pulse Rate Respi
== END 2022-12-12 16:17 | disposition home or self-care (01) ==
PROVIDERS: Emergency Provider Physician Assistant; PCP Internal Medicine
DX: N43.3 Hydrocele, unspecified (principal); I10 Essential (primary) hypertension; K21.9 Gastro-esophageal reflux disease without esophagitis; Z79.82 Long term (current) use of aspirin
CPT/HCPCS: 76870; 81001; 93976; 99284; A9270

== ENCOUNTER 2023-08-09 08:04 | Outpatient (CLI) | payer MEDICARE, SELFPAY ==
--- NOTE | 2023-08-09 08:30 | ECG_ITS ---
SEE SCANNED COPY FOR CONFIRMED REPORT MTDD
[2023-08-09 10:28] LABS: Anion Gap 8 mmol/L (4-12); Blood Urea Nitrogen 27 mg/dL (9-20); Calcium 9.8 mg/dL (8.4-10.2); Carbon Dioxide 28 mmol/L (22-30); Chloride 105 mmol/L (98-107); Estimated Glomerular Filt Rate 49; Glucose 119 mg/dL (65-110); Potassium 3.9 mmol/L (3.4-5.0); Sodium 141 mmol/L (137-145)
== END 2023-08-09 08:05 | disposition home or self-care (01) ==
PROVIDERS: Anesthesiology; PCP Internal Medicine; Visit Provider Urology
DX: Z01.818 Encounter for other preprocedural examination (principal); Z51.81 Encounter for therapeutic drug level monitoring; I10 Essential (primary) hypertension; R94.31 Abnormal electrocardiogram [ECG] [EKG]
CPT/HCPCS: 36415; 80048; 93005

== ENCOUNTER 2023-08-14 00:35 | Day surgery (SDC) | payer MEDICARE, SELFPAY ==
[2023-08-08 11:55] VITALS: BMI 37.0
--- NOTE | 2023-08-08 12:27 | PC.NURSE ---
Report to the Outpatient Waiting Room, entrance under the green pavilion located off [facility], at time __6:00AM on date __08/14/23 . Planned Procedure Time: __7:30AM . Time changes happen often and if your time is changed the preop area will call you the afternoon before. - You and your visitor will be asked to self-screen and do not enter if you have any COVID symptoms. - A mask is optional within the hospital at this time. Patients may have clear liquids (water, carbonated beverages, clear teas, apple juice) until 3 hours prior to surgery with a maximum of 20 ounces. - No food from midnight until time of surgery. Take the following medications with a SIP of water the morning of surgery: ___PROPRANOLOL DO NOT STOP ANY OF YOUR OTHER PRESCRIPTION MEDICATIONS PRIOR TO SURGERY ?EXCEPT THE FOLLOWING Medications to discontinue per physician ____HOLD ALL VITAMINS/SUPPLEMENTS 3 DAYS PRE-OP Date to take last dose____08/10/23 Please no make-up, nail latvian, hairspray, perfume, deodorant, or body powder the day of surgery. No jewelry (including any body piercings) or valuables the day of surgery, leave them at home. Please take a shower or bath the night before, or the morning of, surgery with an antibacterial soap. Wear comfortable, loose fitting clothing. - Jewelry must be removed prior to entering the operating room. Rings and piercings that are not removed may be cut off. - The hospital will not accept responsibility for valuables. - Please leave all valuables, including medications, at home the day of surgery. If you are going home after surgery, a licensed [employer] truck driver must drive you home. - NO public transportation without another adult if you receive anesthesia. - We recommend that an adult stay with you for 24 hours following discharge. - We also recommend that you do not drive, make important decision, drink alcoholic beverages, or take any drugs that were not prescribed by your health care provider for at least 24 hours after your discharge time. Follow any additional instructions given to you from your surgeon. If you or anyone in your household have experienced Covid symptoms in the past week, please notify your surgeon or the nurse liaison at the phone number below for possible testing. Telephone instructions given to __PATIENT and asked if any additional questions and then verbalized understanding. Patient advised to call surgeon office or pre surgery nurse liaison [phone] if any additional questions.
[2023-08-14] VITALS (11 sets, daily range): BP systolic 164–212; BP diastolic 71–99; PULSE 51–61; RESP 10–17; TEMP 36.4–36.5; O2SAT 92–100
[2023-08-14] MEDS: LACTATED RINGERS 1,000 ML 30 ML IV CONT ×2 (06:30→08:48)
--- NOTE | 2023-08-14 06:46 | WPDANESEPPF ---
Anes - Initial Pre Proc Eval Procedure: Operation Date: 08/14/23 07:30 Proposed Procedures p Right Hydrocelectomy - Matt Lyons MD Date/Time: 08/14/23 06:46 Surgeon: Matt Lyons MD Pre Op Diagnosis: hydrocele Patient Data Age: 83 Gender: M Height: 1.75 m Weight: 114 kg Allergies Allergy/AdvReac Type Severity Reaction Status Date / Time No Known Allergies Allergy Verified 08/14/23 07:50 Home Medications Medication Instructions Recorded Confirmed Type omeprazole magnesium 20 mg 20 mg PO DAILY 04/04/19 08/14/23 History tablet,delayed release (Prilosec OTC) atorvastatin 10 mg tablet 10 mg PO DAILY 03/22/20 08/14/23 History propranolol 60 mg capsule,24 60 mg PO QAM 07/08/20 08/14/23 History hr,extended release fthdpssq-wf-wyllm 300 mcg-K 60 1 tablet PO DAILY 02/01/23 08/14/23 History mcg-lycop 600 mcg-lutein 300 mcg tablet (Centrum Silver Men) loratadine 10 mg tablet (Claritin) 10 mg PO DAILY PRN Sinus Symptoms 08/08/23 08/14/23 History valsartan 320 1 tablet PO QAM 08/08/23 08/14/23 History mg-hydrochlorothiazide 25 mg tablet tramadol 50 mg tablet 50 mg PO Q6H PRN pain #20 tabs 08/14/23 Rx Patient hx anesthesia problems: none Family hx anesthesia problems: none Results Review: All pre-operative results and documents have been reviewed as part of the pre-operative evaluation. [facility] Past Medical History Medical History (Updated 08/14/23 @ 08:15 by Matt Lyons MD) Fracture of right fibula, shaft GERD (gastroesophageal reflux disease) Hyperlipidemia Hypertension Pulmonary fibrosis Surgical History Surgical History History of arthroscopy of left knee left History of rotator cuff surgery left Family History Family History Unknown Unknown family medical history Mother Cerebrovascular accident Social History Social History Smoking status: Never smoker Alcohol intake: current Drinks per week: 2 Substance use: never Substance use type: does not use Lack of Transportation: No Lack of Food: Never True Current Housing: I Have Housing Concerned About Future Housing: No Difficulty Paying Gas/Electric Bills: No Difficulty Paying for Meds: No Currently Unemployed: No Education: High School Diploma/GED Difficulty w/ Childcare or Family Care: No Living arrangements: with family Additional living arrangements comments: Occupation/Education: retired Gender identity (if verbalized by the patient): Male Spiritual care concerns: No Anes - Eval Final PreProcedure Day of Procedure 08/14/23 06:46 Patient weight: obese Heart: regular rate and rhythm Lungs: clear to auscultation Airway: Mallampati scale class II Neurological: alert and oriented Last oral intake: >/= 8 hours ASA classification: III Emergent: no Anesthetic plan: proceed Anesthesia type and monitoring: general LMA and standard monitoring Results Review: All pre-operative results and documents have been reviewed as part of the pre-operative evaluation. Informed Consent: The patient's anesthetic plan and its attendant risks and benefits were discussed with the patient/family/POA. Questions were solicited and answers provided to the satisfaction of the patient/family/POA.
--- NOTE | 2023-08-14 07:04 | WPDHPUPDATE1 ---
History and Physical Update Update Date/Time: 08/14/23 07:04 History and Physical has been reviewed, including an updated exam of the patient. There are NO changes in the patient's condition. Risks, benefits, and alternatives have been discussed and questions answered. Patient agrees to proceed with procedure. Proceed with right hydrocelectomy and orchiopexy
[2023-08-14] MEDS: ceFAZolin 2 GM/D5W 50 ML 2 GM/50 ML BAG IVPB (07:22)
[2023-08-14] MEDS: LIDOCAINE HCL 1% LOCAL INJ 20 ML VIAL 10 ML INFILTRATE (07:48)
[2023-08-14] MEDS: NEOMYCIN/POLYMYXIN/BACITRACIN OINTMENT PACKET 2 PACKET TOPICAL (08:04)
--- NOTE | 2023-08-14 08:12 | P.OP_ITS ---
Procedure Note - Detailed Date of Procedure 08/14/23 Pre-op Diagnosis hydrocele Post-op Diagnosis Same Procedure Performed Right hydrocelectomy, right orchiopexy Surgeon Matt Lyons MD Anesthesia General Description of Procedure Patient was taken to the operative suite correctly identified. Once anesthesia was obtained he was prepped and draped usual sterile fashion. A transverse incision was made in the right hemiscrotum. This carried down to the tunica layers. The hydrocele was brought out the operative field. It was opened and drained of only approximately 75-100 cc of straw-colored fluid. The excess hydrocele sac was then excised. The edges were fulgurated. I then did an orchiopexy using Ethibond in a three-point fixture. Quarter-inch Mehnaz drain was brought out through a separate stab incision and secured. Tunica was closed using 3-0 chromic in a running fashion. Skin was closed using 3-0 chromic in a running fashion. 1% lidocaine was used for anesthetizing the skin. Patient tolerated procedure well without any complications taken recovery stable condition. He will remove the [place] drain and 2-3 days time. He will follow- up in the office 2-3 weeks time. This completes dictation. Please send a copy of op note to my office Estimated Blood Loss 10 Drains Yes Packing No Pathology Yes Complications No immediate complications Condition Stable Disposition PACU
[2023-08-14] MEDS: ONDANSETRON INJ 4 MG/2 ML VIAL IV PUSH (08:29)
[2023-08-14] MEDS: fentaNYL CITRATE INJ (*CRX) 100 MCG/2 ML VIAL 25 MCG IV PUSH ×4 (08:36→09:05)
[2023-08-14] MEDS: hydrALAZINE HCL 20 MG/ML VIAL 10 MG IV PUSH (09:42)
--- NOTE | 2023-08-14 10:20 | SUR.PHASEII ---
Patient vitals are stable. Patient is unhooked from the monitors and getting ready to leave.
[2023-08-14] MEDS: ACETAMINOPHEN 500 MG TABLET 1000 MG PO (10:34)
== END 2023-08-14 11:13 | disposition home or self-care (01) ==
PROVIDERS: PCP Internal Medicine; Visit Provider Urology
PROC: (CPT 55040; principal; 2023-08-14 07:30)
DX: N43.3 Hydrocele, unspecified (principal); L72.11 Pilar cyst; I10 Essential (primary) hypertension; E78.5 Hyperlipidemia, unspecified; K21.9 Gastro-esophageal reflux disease without esophagitis; E66.9 Obesity, unspecified; Z68.36 Body mass index [BMI] 36.0-36.9, adult
CPT/HCPCS: 55040; 54640; 88302; A9270; J0360; J0690; J1100; J2371; J2405; J2704; J3010; J7120

== ENCOUNTER 2024-07-23 04:16 | Emergency (ER) | payer MEDICARE, SELFPAY ==
--- NOTE | ~2024-07-23 | XR_ITS ---
Left foot Technique: AP, oblique, and lateral views were obtained. Clinical History: Pain Findings: No acute fracture or dislocation is seen. Osseous alignment is anatomic. There is fusion ac ross the second PIP joint. Remaining joint spaces are preserved without erosive or degenerative santos e. Soft tissues are unremarkable. Impression: No acute abnormality. Reviewed, dictated and finalized at location . Impression: No acute abnormality.
--- NOTE | ~2024-07-23 | XR_ITS ---
Left ankle Technique: AP, oblique, and lateral views were obtained. Clinical History: Pain Findings: No acute fracture or dislocation is seen. Osseous alignment is anatomic. Ankle mortise and other visualized joint spaces are preserved. Soft tissue swelling of the ankle noted. Impression: No osseous or articular abnormality. Nonspecific soft tissue swelling about the ankle. Reviewed, dictated and finalized at location . Impression: No osseous or articular abnormality. Nonspecific soft tissue swelling about the ankle.
--- OUTSIDE RECORDS SUMMARY | 2024-07-23 04:19 | XMS_ITS | Clinical Summary ---
Author Organization [facility] Address [address] [place] [address] Care Team Providers Care Goat Farmer Name Role Phone Jarek Armenta MD Primary Care Provider Allergies Active Allergy Reactions Criticality Noted Date Comments Amlodipine Swelling Medium 05/26/2022 Medications multivit mqrzhytf-zoda-I A-calcium (THERA-M) 9 mg iron-400 mcg tabletIndicatio ns:Vitamin Deficiency Prevention Take 1 tablet by mouth daily Active omeprazole (PriLOSEC) 20 mg capsule Take 1 capsule (20 mg total) by mouth daily Active acetaminophen 500 mg capsuleIndicati ons:Fever,Pain Take 1 capsule (500 mg total) by mouth every 6 (six) hours as needed for pain 11/14/2022 Active atorvastatin (LIPITOR) 10 mg tablet Take 1 tablet (10 mg total) by mouth daily 90 tablet 1 09/17/2023 Active valsartan-hydro chlorothiazide (DIOVAN-HCT) 320-25 mg per tablet Take 1 tablet by mouth daily 90 tablet 1 09/17/2023 Active propranolol LA (INDERAL LA) 60 mg 24 hr capsule TAKE 1 CAPSULE(60 MG) BY MOUTH DAILY 90 capsule 1 05/02/2024 Active Active Problems Problem Noted Date Diagnosed Date Advance care planning 03/21/2024 Overview (03/21/2024): 12- HCPOA: , Eva. Full code if there is a chance of recovery, otherwise DNR/DNI. Assessment & Plan (03/21/2024 10:35 AM RELAY MAN): Advance Care Planning Advance Care Planning Conversation Pertinent diagnoses: age, HTN The patient and/or family consented to a voluntary Advance Care Planning conversation. Individuals present for the conversation: patient Summary of the conversation: Full code if there is a chance of recovery, otherwise DNR/DNI. Outcome of the conversation and documents completed (select all that apply): CHANGE code status to FULL CODE I spent 16 minutes providing separately identifiable ACP services with the patient and/or surrogate decision maker in a voluntary, in-person conversation discussing the patient's wishes and goals as detailed in the above note. Jarek Armenta MD Arthritis of right knee 02/19/2023 Overview (02/19/2023): 03-[address] Martinez Assessment & Plan (02/19/2023 10:33 AM RELAY MAN): Would like an opinion from an orthopedist. Will refer to Dr. Martinez. 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 IFG (impaired fasting glucose) 11/21/2021 Overview (11/21/2021): 8 A1C 6.2% Assessment & Plan (03/21/2024 10:20 AM RELAY MAN): The hemoglobin A1C level will be checked today. Discussed the importance of continuing to exercise regularly (at least four days a week) and to watch the intake of simple sugars and carbs. Alcohol should be limited to no more than 4-6 servings a week. Assessment & Plan (02/19/2023 10:08 AM RELAY MAN): The hemoglobin A1C level will be checked today. Discussed the importance of continuing to exercise regularly (at least four days a week) and to watch the intake of simple sugars and carbs. Alcohol should be limited to no more than 4-6 servings a week. 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 No tremor at rest. Hard to eat and drink. Trying propranolol LA 05/20/20: back today to check on tremor and BP Assessment & Plan (05/20/2020 2:07 PM RELAY MAN): Tremor improved with Propranolol LA - continue Assessment & Plan (05/05/2020 1:51 PM RELAY MAN): Worse since COVID infection Starting propranolol LA Needs f/u in 2 weeks. Medicare annual wellness visit, subsequent 07/12 Assessment & Plan (03/21/2024 10:19 AM RELAY MAN): Please see below for a list of your medical conditions and recommendations. Assessment & Plan (02/19/2023 10:08 AM RELAY MAN): Please see below for a list of your medical conditions and recommendations. Assessment & Plan (11/18/2021 9:07 AM CDT): Please see below for a list of your medical conditions and recommendations. Assessment & Plan (11/09/2020 11:37 AM CDT): Please see below for a list of your medical conditions and recommendations. Due for a Tdap vaccine. To get a local pharmacy. Assessment & Plan (11/03/2019 2:06 PM CDT): Please see below for a list of your medical conditions and recommendations. Assessment & Plan (07/16/2018 9:21 AM CDT): Please see below for a list of your medical conditions and recommendations. Assessment & Plan (07/12/2017 10:20 AM CDT): Please see below for a list of your medical conditions and recommendations. Class 2 severe obesity due t o excess calories with serious comorbidity and body mass index (BMI) of 37.0 to 37.9 in adult 07/12/2017 Assessment & Plan (03/21/2024 10:20 AM RELAY MAN): He needs to continue efforts at weight loss through regular exercise and calorie restriction, making sure to avoid high fat foods, simple carbohydrates (sugars) and any beverages containing sugar. To work at eating at least 4-5 servings of fruits and vegetables a day. The ideal BMI is 25.0. Assessment & Plan (08/07/2023 11:34 AM CDT): He needs to continue efforts at weight loss through regular exercise and calorie restriction, making sure to avoid high fat foods, simple carbohydrates (sugars) and any beverages containing sugar. To work at eating at least 4-5 servings of fruits and vegetables a day. The ideal BMI is 25.0. Assessment & Plan (07/23/2023 1:07 PM CDT): He needs to continue efforts at weight loss through regular exercise and calorie restriction, making sure to avoid high fat foods, simple carbohydrates (sugars) and any beverages containing sugar. To work at eating at least 4-5 servings of fruits and vegetables a day. The ideal BMI is 25.0. Assessment & Plan (02/19/2023 10:09 AM RELAY MAN): He needs to continue efforts at weight loss through regular exercise and calorie restriction, making sure to avoid high fat foods, simple carbohydrates (sugars) and any beverages containing sugar. To work at eating at least 4-5 servings of fruits and vegetables a day. The ideal BMI is 25.0. Assessment & Plan (08/14/2022 10:39 AM CDT): He needs to continue efforts at weight loss through regular exercise and calorie restriction, making sure to avoid high fat foods, simple carbohydrates (sugars) and any beverages containing sugar. To work at eating at least 4-5 servings of fruits and vegetables a day. The ideal BMI is 25.0. Assessment & Plan (06/30/2022 12:47 PM CDT): He needs to continue efforts at weight loss through regular exercise and calorie restriction, making sure to avoid high fat foods, simple carbohydrates (sugars) and any beverages containing sugar. To work at eating at least 4-5 servings of fruits and vegetables a day. The ideal BMI is 25.0. Assessment & Plan (05/26/2022 10:59 AM RELAY MAN): He needs to continue efforts at weight loss through regular exercise and calorie restriction, making sure to avoid high fat foods, simple carbohydrates (sugars) and any beverages containing sugar. To work at eating at least 4-5 servings of fruits and vegetables a day. The ideal BMI is 25.0. Assessment & Plan (11/18/2021 9:08 AM CDT): He needs to continue efforts at weight loss through regular exercise and calorie restriction, making sure to avoid high fat foods, simple carbohydrates (sugars) and any beverages containing sugar. To work at eating at least 4-5 servings of fruits and vegetables a day. The ideal BMI is 25.0. Assessment & Plan (05/12/2021 9:28 AM RELAY MAN): He needs to continue efforts at weight loss through regular exercise and calorie restriction, making sure to avoid high fat foods, simple carbohydrates (sugars) and any beverages containing sugar. To work at eating at least 4-5 servings of fruits and vegetables a day. The ideal BMI is 25.0. Assessment & Plan (11/09/2020 11:12 AM CDT): He needs to continue efforts at weight loss through regular exercise and calorie restriction, making sure to avoid high fat foods, simple carbohydrates (sugars) and any beverages containing sugar. To work at eating at least 4-5 servings of fruits and vegetables a day. The ideal BMI is 25.0. Assessment & Plan (05/20/2020 2:05 PM RELAY MAN): BMI Follow-up includes: nutrition counseling and exercise counseling. Assessment & Plan (05/04/2020 12:09 PM RELAY MAN): BMI Follow-up includes: nutrition counseling and exercise counseling. Assessment & Plan (11/03/2019 2:07 PM CDT): He needs to continue efforts at weight loss through regular exercise and calorie restriction, making sure to avoid high fat foods, simple carbohydrates (sugars) and any beverages containing sugar. To work at eating at least 4-5 servings of fruits and vegetables a day. The ideal BMI is 25.0. Assessment & Plan (07/16/2018 9:22 AM CDT): He needs to continue efforts at weight loss through regular exercise and calorie restriction, making sure to avoid high fat foods, simple carbohydrates (sugars) and any beverages containing sugar. To work at eating at least 4-5 servings of fruits and vegetables a day. The ideal BMI is 25.0. Assessment & Plan (07/12/2017 10:21 AM CDT): He needs to continue efforts at weight loss through regular exercise and calorie restriction, making sure to avoid high fat foods, simple carbohydrates (sugars) and any beverages containing sugar. To work at eating at least 4-5 servings of fruits and vegetables a day. The ideal BMI is 25.0. Hyperlipidemia 08/03/2014 Overview (11/03/2019): 7-20 heart risk 36.5%, start atorvastatin 10 Assessment & Plan (03/21/2024 10:20 AM RELAY MAN): To continue to efforts at getting 4-5 servings of fruits and/or vegetables a day. A fasting lipid profile will be checked today. Assessment & Plan (02/19/2023 10:09 AM RELAY MAN): To continue to efforts at getting 4-5 servings of fruits and/or vegetables a day. A fasting lipid profile will be checked today. Assessment & Plan (11/13/2022 9:40 AM CDT): Statin therapy. Assessment & Plan (08/14/2022 10:38 AM CDT): Continue statin. Assessment & Plan (11/18/2021 9:07 AM CDT): To continue to efforts at getting 4-5 servings of fruits and/or vegetables a day. A fasting lipid profile will be checked today. Assessment & Plan (05/12/2021 9:23 AM RELAY MAN): To continue to efforts at getting 4-5 servings of fruits and/or vegetables a day. Assessment & Plan (11/09/2020 11:12 AM CDT): To continue to efforts at getting 4-5 servings of fruits and/or vegetables a day. A fasting lipid profile will be checked today. Assessment & Plan (05/04/2020 12:08 PM RELAY MAN): Continue statin Assessment & Plan (11/03/2019 2:06 PM CDT): To continue to efforts at getting 4-5 servings of fruits and/or vegetables a day. A fasting lipid profile will be checked today. Assessment & Plan (07/12/2017 10:21 AM CDT): To continue to efforts at getting 4-5 servings of fruits and/or vegetables a day. A fasting lipid profile will be checked today. Hypertension 01/29/2014 Overview (08/07/2023): 2-23 stop amolodipine (edema0 3-23 increase valsartan hct to 320/25 4-24 change valsartan to valsartan/hctz 160/25 4-24 increase vaslsartan hct to 320/25 Assessment & Plan (03/21/2024 10:19 AM RELAY MAN): The blood pressure is adequately controlled. Ideally, I want it below 130/80. Will continue with the same medications as prescribed (valsartan/hctz, propranolol). Salt intake needs to be restricted to keep the sodium level at less than 2000 mg a day. Regular exercise is also important and should be at least four days a week. Assessment & Plan (09/18/2023 11:12 AM CDT): The blood pressure is adequately controlled. Ideally, I want it below 130/80. Will continue with the same medications as prescribed (valsartan/hct). Salt intake needs to be restricted to keep the sodium level at less than 2000 mg a day. Regular exercise is also important and should be at least four days a week. Assessment & Plan (08/07/2023 11:34 AM CDT): He is near goal. Will up the valsartan hct to 320/25. I am fine with him going for the hydrocele repair currently. Reassess in 6 weeks. Assessment & Plan (07/23/2023 1:07 PM CDT): Change valsartan to valsartan/hctz 160/25. Check CMP today and reassess in two weeks. Assessment & Plan (02/19/2023 10:08 AM RELAY MAN): The blood pressure is adequately controlled. Ideally, I want it below 130/80. Will continue with the same medications as prescribed (valsartan). Salt intake needs to be restricted to keep the sodium level at less than 2000 mg a day. Regular exercise is also important and should be at least four days a week. Assessment & Plan (11/21/2022 11:06 AM CDT): BP higher on lower dose of med. Pending BMP results will increase it back to where it was. Assessment & Plan (11/14/2022 8:47 AM CDT): Resume valsartan at a lower dose. Follow. Assessment & Plan (08/14/2022 10:38 AM CDT): The blood pressure is adequately controlled. Ideally, I want it below 130/80. Will continue with the same medications as prescribed (valsartan/hctz, propanolol). Salt intake needs to be restricted to keep the sodium level at less than 2000 mg a day. Regular exercise is also important and should be at least four days a week. Assessment & Plan (06/30/2022 12:46 PM CDT): Increase valsartan HCT to 320/25 a day. Follow up in six weeks. Assessment & Plan (05/26/2022 11:18 AM RELAY MAN): He is likely having a reaction to amlodipine with the swelling. His BP is not well controlled. Change to valsartan hct 160/12.5. Reassess in one month. Check labs. Discussed a low salt diet. Assessment & Plan (11/18/2021 9:08 AM CDT): The blood pressure is adequately controlled. Ideally, I want it below 130/80. Will continue with the same medications as prescribed (amlodipine, propranolol). Salt intake needs to be restricted to keep the sodium level at less than 2000 mg a day. Regular exercise is also important and should be at least four days a week. Assessment & Plan (05/12/2021 9:26 AM RELAY MAN): The blood pressure is a little high here today but has been better with PT recently. Ideally, I want it below 130/80. Will continue with the same medications as prescribed (amlodipine, propranolol). Salt intake needs to be restricted to keep the sodium level at less than 2000 mg a day. Regular exercise is also important and should be at least four days a week. Assessment & Plan (11/09/2020 11:12 AM CDT): The blood pressure is adequately controlled. Ideally, I want it below 130/80. Will continue with the same medications as prescribed. Salt intake needs to be restricted to keep the sodium level at less than 2000 mg a day. Regular exercise is also important and should be at least four days a week. Assessment & Plan (05/20/2020 2:06 PM RELAY MAN): The blood pressure is under fair control. Continue medications without adjustment. Call if BP is consistently 150/90 or more. Continue efforts to eat well (4-5 fruits and veggies) daily and exercise for about 30 min nearly every day. Adopt the [place] diet. Watch salt intake, keeping to less than 2000mg per day. Limit alcohol. Include stratagies to cope with stress. Assessment & Plan (05/05/2020 1:50 PM RELAY MAN): The blood pressure is under good control. Ideally it should be under 130/80. His tremor is really bothering him. Will try to change to propranolol LA to see if this improves the tremor and controls BP. Stop the amlodipine Needs f/u in 2 weeks Continue efforts to eat well (4-5 fruits and veggies) daily and exercise for about 30 min nearly every day. Adopt the [place] diet. Watch salt intake, keeping to less than 2000mg per day. Limit alcohol. Include stratagies to cope with stress. Labs will be checked today. Assessment & Plan (04/06/2020 2:07 PM RELAY MAN): BP is on the low side today Push fluids. Assessment & Plan (11/03/2019 2:06 PM CDT): The blood pressure is adequately controlled. Ideally, I want it below 130/80. Will continue with the same medications as prescribed. Salt intake needs to be restricted to keep the sodium level at less than 2000 mg a day. Regular exercise is also important and should be at least four days a week. Assessment & Plan (01/24/2019 9:13 AM CDT): The blood pressure is not quite adequately controlled. Ideally, I want it below 130/80. Will continue with the same medications as prescribed. He is to check his readings once a day at home and send those to me. Salt intake needs to be restricted to keep the sodium level at less than 2000 mg a day. Regular exercise is also important and should be at least four days a week. Assessment & Plan (07/16/2018 9:21 AM CDT): The blood pressure is adequately controlled. Ideally, I want it below 130/80. Will continue with the same medications as prescribed. Salt intake needs to be restricted to keep the sodium level at less than 2000 mg a day. Regular exercise is also important and should be at least four days a week. Assessment & Plan (07/12/2017 10:20 AM CDT): The blood pressure is adequately controlled. Ideally, I want it below 130/80. Will continue with the same medications as prescribed. Salt intake needs to be restricted to keep the sodium level at less than 2000 mg a day. Regular exercise is also important and should be at least four days a week. Atopic rhinitis 08/30/2013 Overview (07/19/2016): ALLERGIC RHINITIS NOS Benign neoplasm of large intestine 08/30/2013 Overview (11/09/2020): 4-13 colon: normal. History of polyps 8-19 colon: two small polyps, +5 Assessment & Plan (07/16/2018 9:39 AM CDT): Due for a repeat colonoscopy. Assessment & Plan (07/12/2017 10:26 AM CDT): Due for a repeat exam November of this year. BPH with urinary obstruction 08/30/2013 Overview (07/16/2018): Pressure to go, more urgency. Nocturia x1. Assessment & Plan (11/13/2022 9:40 AM CDT): Urology to see. Assessment & Plan (07/16/2018 9:30 AM CDT): Trial of tamsulosin for at least a month. Nasal polyp 07/23/2009 Resolved Problems Problem Noted Date Diagnosed Date Resolved Date Hearing loss due to cerumen impaction, left 09/18/2023 03/21/2024 Right groin pain 11/21/2022 03/21/2024 Assessment & Plan (01/02/2023 1:04 PM CDT): Pain is overall improved. Etiology is not clear but he has improved significantly. To call if it recurs. I wonder if he had torn his ileopsoas muscle. Assessment & Plan (11/21/2022 11:04 AM CDT): Etiology is still not clear. CT rules out kidney stone. US does not show torsion. Epididymitis is possible but not severe given normal US results. Could even by DJD of right hip. -treat for epididymitis empirically with cipro for 7 days -check XR hip to assess for DJD. -keep appt in 3 weeks. Hyponatremia 11/13/2022 07/23/2023 Assessment & Plan (11/13/2022 9:39 AM CDT): Resolved. Testicular pain 11/13/2022 03/21/2024 Assessment & Plan (11/14/2022 8:48 AM CDT): Etiology is not clear. US only showed hydroceles Urology input appreciated. I suspect his pain is not related. MEHNAZ (acute kidney injury) 11/12/2022 Assessment & Plan (11/21/2022 11:04 AM CDT): Repeat BMP today. Assessment & Plan (11/14/2022 8:47 AM CDT): Etiology is not clear. His renal function has improved a bit again this AM Given flank pain radiating to the testicle one wonder about a ureteral stone but no stone nor hydronephrosis seen on CT scan. Will discharge today and see him back in one week and repeat labs. Cough 06/28/2020 11/09/2020 Overview (06/28/2020): Sinus and chest congestion. Started Sat a week ago - on mucinex DM. Gotten worse yellow mucus - not SOB. No fever. 1st vaccine about 2 weeks ago. Assessment & Plan (06/28/2020 11:17 AM CDT): Has been sick for longer than a week and is getting worse. Will check for COVID infection, but he has been partially vaccinated and had a previous COVID infection. Continue mucinex DM and add zyrtec. Use inhalers. Needs to call if getting worse on medication. COVID-19 virus infection 04/12/202008/2021 Overview (05/20/2020): 03/24/20: To [facility] for COVID PNA and had fall. CT head: normal. Treated with dexamethazone and remdesivir. Required O2 up to 4 LOM. Went to SNF afterward and on home O2. 05/05/20Saturation on RA is 95% at rest and 90% with activity - is going to f/u with Pulmonology in 2 weeks. Feeling better. 05/20/20: Now off O2 and Sats staying at 95-97% on RA Going to have more lung testing through pulm. Feeling better Assessment & Plan (05/20/2020 2:05 PM RELAY MAN): Now off O2 and Sats staying at 95-97% on RA Going to have more lung testing through pulm. Assessment & Plan (05/05/2020 1:48 PM RELAY MAN): Saturation on RA is 95% at rest and 90% with activity - is going to f/u with Pulmonology in 2 weeks. Feeling better. No changes Encounter for support and co ordination of transition of care 04/06/2020 11/09/2020 Overview (04/06/2020): 03/23/20: Pt fell at home = EMT called and took him to [facility]. D/C 04/01/20 - to home. In the hospital: Dx with COVID - started on O2 - up to 4 LPM. 04/06/20: Spoke with patient today: 4 LPM Came home on 96-97% SaO2 - even with activity Steroids at home - finished these - dexamethasone 6 mg 5 pills. Still no taste or smell Azithromycin at the start. Pulm doctor: Molly Lane ([facility]) - [phone] [facility] Assessment & Plan (04/06/2020 1:05 PM RELAY MAN): He is stable today He has finished both ABX and Steroid - now on O2 only at 4 LMP I had them decreased the level to 3 LPM and will have them track Sat and BP today - calling tomorrow to report readings. If ok then will decrease to 2 LPM. Will need f/u visit on Sunday Also he has been instructed to use the incentive spirometer 4+ times per day Get up every hour and move around to keep up muscle strength Push fluids and nutrition Waiting for records from [facility] Immunizations Immunization Administration Dates Next Due Influenza, Quad, Adjuvantate d, Intramuscular 01/27/2021 Influenza, Quadrivalent, Hig h Dose, Preservative Free, Intrr 01/02/2023,01/22/2022,01/01/2020 Influenza, Split 01/14/2010,01/14/2009 Influenza, Trivalent, Adjuva nted, Intramuscular 12/29/2023 Influenza, Trivalent, High D ose, Split, Preservative Free, Intramuscular 01/24/2019,01/24/2018,01/04/2017,01/31,01/11/2015 Influenza, Trivalent, IM (MDV) 4,01/14/2013,02/07/2012,01/14 Influenza, Trivalent, Recomb inant, Egg Free, Preservative Free, Antibiotic Free, IM (FLUBLOK) 01/25/2015 Influenza, Unspecified 01/14/2022,01/14/2021,04/2016 Moderna SARS-CoV-2 Monovalen t Vaccination (12+ YRS) 07/05/2020,06/06/2020 Pfizer SARS-CoV-2 Monovalent Vaccination (12+ Yrs) PURPLE 02/09/2022,10/06/2021,03/02/2021 Pneumococcal Conjugate PCV 13 02/01/2015 Pneumococcal Polysaccharide PPV23 10/29/2007 RSV Vaccine, Pref, Recombina nt, Subunit, Adjuvanted, PF, IM (Arexvy) 04/10/2023 Tdap 12/06/2021,12/01/2020,11/03/2010 ZOSTER Recombinant 02/16/2022,12/06/2021 Surgical History Surgery Date Site/Laterality Comments OTHER SURGICAL HISTORY lt knee meniscectomy 4-08 OTHER SURGICAL HISTORY Nasal Polypectomies OTHER SURGICAL HISTORY 04/16/2010 - 04/15/2011 lt rotator cuff injury: s/p repair OTHER SURGICAL HISTORY vasovagal syncope: neg carotid doppler/stress test OTHER SURGICAL HISTORY 04/16/2011 - 04/15/2012 peptic stricture: dilated BUNIONECTOMY 04/16/2017 - 04/15/2018 Right and hammer toe repair COLONOSCOPY UPPER GASTROINTESTINAL ENDOSCOPY Medical History Medical History Date Comments Hx Other Medical AR Hx Other Medical BPH Hx Other Medical Colonic polyps Hx Other Medical Mild Hyperchole sterolemia Hx Other Medical h/o Labile BP Hx Other Medical 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 CT head: normal. Treated with dexamethazone and remdesivir. Required O2 up to 4 LOM. Went to SNF afterward and on home O2. 05/05/20Saturation on RA is 95% at rest and 90% with activity - is going to f/u with Pulmonology in 2 weeks. Feeling better. 05/20/20: Now off O2 and Sats staying at 95-97% on RA Going to have more lung testing Hyponatremia 11/13/2022 MEHNAZ (acute kidney injury) 11/12/2022 Testicular pain 11/13/2022 Right groin pain 11/21/2022 Family History Medical History Relation Name Comments Other Father PUD/SAH; Cause of : PUD/SAH Parkinsonism Father Parkinson's dis ease; Coronary artery disease Mother Rosalia nary artery disease; Relation Name Status Comments Father Mother Social History Tobacco Use Types Packs/Day Years Used Date Smoking Tobacco: Never Smokeless Tobacco: Never Tobacco Cessation:Counseling Given: Not Answered Alcohol Use Standard Drinks/Week Comments Yes 2 (1 standard drink = 0.6 oz pur e alcohol) Social Connection and Isolat ion Panel [NHANES] Answer Date Recorded In a typical week, how many times do you talk on the phone with family, friends, or neighbors? More than three times a week 11/13/2022 How often do you get togethe r with friends or relatives? More than three times a week 11/13/2022 How often do you attend chur ch or spiritism services? Never 11/13/2022 Do you belong to any clubs o r organizations such as lutheran groups, unions, fraternal or athletic groups, or school groups? No 11/13/2022 How often do you attend meet ings of the clubs or organizations you belong to? Never 11/13/2022 Are you , , di vorced, , never , or living with a partner? 11/13/2022 Overall Financial Resource Strain (CARDIA) Answe r Date Recorded How hard is it for you to pa y for the very basics like food, housing, medical care, and heating? Not hard at all 11/13/2022 PHQ-2 Answer Date Recorded PHQ-2 Total Score (If total score is 3 or more points, staff should administer the PHQ-9) 0 03/21/2024 Hunger Vital Sign Answer Date Recorded Within the past 12 months, y ou worried that your food would run out before you got the money to buy more. Never true 11/14/19 23 Within the past 12 months, t he food you bought just didn't last and you didn't have money to get more. Never true 11/13/2022 PRAPARE - Transportation Answer Date Re corded In the past 12 months, has l ack of transportation kept you from medical appointments or from getting medications? No 10/16 In the past 12 months, has l ack of transportation kept you from meetings, work, or from getting things needed for daily living? No 11/13/2022 Housing Stability Vital Sign Answer Harpreet e Recorded In the last 12 months, was t here a time when you were not able to pay the mortgage or rent on time? No 11/13/2022 In the last 12 months, how many places have you lived? 1 11/13/2022 In the last 12 months, was t here a time when you did not have a steady place to sleep or slept in a detention (including now)? No 11/13/2022 Personal Safety Answer Date Recorded Have you ever been in or are you currently in a harmful physical or emotional relationship or is someone making you feel afraid or unsafe? Denies 12/06/2022 Sex and Gender Information Value Date Recorded Sex Assigned at Not on file Legal Sex Male 8:53 AM RELAY MAN Gender Identity Male 06/28/2020 10:01 AM CDT Sexual Orientation Not on file Obstetrics History Last Filed Vital Signs Vital Sign Reading Time Taken Comments Blood Pressure 134/74 03/21/2024 10:06 AM RELAY MAN Pulse 72 03/21/2024 10:06 AM RELAY MAN Temperature 36.9 C (98.4 F) 12/06/2022 11:16 AM CDT Respiratory Rate 18 12/06/2022 11:16 AM CDT Oxygen Saturation 97% 12/06/2022 2:35 PM CDT Inhaled Oxygen Concentration - - Weight 115.2 kg (254 lb) 03/21/2024 10:06 AM RELAY MAN Height 175.3 cm (5' 9 ) 03/21/2024 10:06 AM RELAY MAN Body Mass Index 37.51 03/21/2024 10:06 AM RELAY MAN Plan of Treatment Health Maintenance Due Date Last Done Comments Covid-19 Vaccine (9 2023- 5 season) 2024 12/29/2023, 02/09/2022, 02/09/2022, Additional history exists Depression Screening 03/21/2025 03/21/2024, 02/19/2023, 11/18/2021, Additional history exists Fall Risk Assessment 03/21/2025 03/21/2024, 02/19/2023, 11/14/2022, Additional history exists Well Visit 65+ 03/21/2025 03/21/2024, 09/2022, 11/18/2021, Additional history exists DTaP/Tdap/Td Vaccine (4 - Td or Tdap) 12/07/2031 12/06/2021, 12/01/2020, 11/03/2010 Pneumococcal vaccine 65+ Completed 02/01/2015, 10/14 Zoster Vaccine Completed 02/16/2022, 12/06/2021 Influenza Vaccine Completed 12/29/2023, , 01/22/2022, Additional history exists Hepatitis B Screening Completed 03/21/2024 Insurance [employer] [place] [address] [employer] Advance Directives For more information, please contact: [phone] * Full Code (Latest Code Status on File) Date Activated Date Inactivated Comments 11/12/2022 10:45 PM 11/14/2022 6:04 PM * Full Code Date Activated Date Inactivated Comments 11/26/2018 8:04 AM 11/26/2018 1:47 PM Care Teams Goat Farmer Relationship Specialty Start Date End Date Jarek Armenta MD [facility] - General 07/14/16
--- OUTSIDE RECORDS SUMMARY | 2024-07-23 04:19 | XMS_ITS | Encounter Summary ---
Author Organization [facility] Address [address] [place] [address] Phone Care Team Providers Care Senior Lead Developer Name Role Phone Jarek Armenta MD Primary Care Provider Nuvia Mcmanus MA Unavailable [phone] Encounter Details Date Type Department Care Team (Late st Contact Info) Description 07/12/2017 Orders Only [facility] ProviderIris MD [address] [place] [id number] Social History Tobacco Use Types Packs/Day Years Used Date Smoking Tobacco: Never Smokeless Tobacco: Never Alcohol Use Standard Drinks/Week Comments Yes 0 (1 standard drink = 0.6 oz pur e alcohol) Sex and Gender Information Value Date Recorded Sex Assigned at Not on file 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 Historical Provider LAB BLOOD ORDERABLES Chely l Result documented in this encounter Visit Diagnoses Not on filedocumented in this encounter Additional Health Concerns Infection Onset Date Last Indicated Resolved Time COVID: Suspected 06/28/2020 06/29/2020 06/30/2020 5:41 AM CDT documented as of this encounter Care Teams Senior Lead Developer Relationship Specialty Start Date End Date Jarek Armenta MD PCP - General 07/14/16 Nuvia Mcmanus MA [address] [place] [address] DR MEJIA [address] [place] [id number] [employer] 11/15/22 11/16/22 documented as of this encounter
--- OUTSIDE RECORDS SUMMARY | 2024-07-23 04:19 | XMS_ITS | Referral Summary ---
Author Organization [facility] Address [address] [place] [address] Care Team Providers Care Tc Operator Name Role Phone Jarek Armenta MD Primary Care Provider Allergies Active Allergy Reactions Criticality Noted Date Comments Amlodipine Swelling Medium 05/26/2022 Medications multivit [id number]-drqc-[id number] A-calcium (THERA-M) 9 mg iron-400 mcg tabletIndicatio [...] DNR/DNI. Assessment & Plan (03/21/2024 10:35 AM BOX CLOSING MACHINE OPERATOR): Advance Care Planning Advance Care Planning Conversation [...] Martinez Assessment & Plan (02/19/2023 10:33 AM BOX CLOSING MACHINE OPERATOR): Would like an opinion from an orthopedist. Will refer to Dr. Martinez. 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 IFG (impaired fasting glucose) 11/21/2021 Overview (11/21/2021): 8 A1C 6.2% Assessment & Plan (03/21/2024 10:20 AM BOX CLOSING MACHINE OPERATOR): The hemoglobin A1C level will be checked today. Discussed the importance of continuing to exercise regularly (at least four days a week) and to watch the intake of simple sugars and carbs. Alcohol should be limited to no more than 4-6 servings a week. Assessment & Plan (02/19/2023 10:08 AM BOX CLOSING MACHINE OPERATOR): The hemoglobin A1C level will be checked [...] BP Assessment & Plan (05/20/2020 2:07 PM BOX CLOSING MACHINE OPERATOR): Tremor improved with Propranolol LA - continue Assessment & Plan (05/05/2020 1:51 PM BOX CLOSING MACHINE OPERATOR): Worse since COVID infection Starting propranolol LA Needs f/u in 2 weeks. Medicare annual wellness visit, subsequent 07/12 Assessment & Plan (03/21/2024 10:19 AM BOX CLOSING MACHINE OPERATOR): Please see below for a list of your medical conditions and recommendations. Assessment & Plan (02/19/2023 10:08 AM BOX CLOSING MACHINE OPERATOR): Please see below for a list of [...] 07/12/2017 Assessment & Plan (03/21/2024 10:20 AM BOX CLOSING MACHINE OPERATOR): He needs to continue efforts at weight [...] 25.0. Assessment & Plan (02/19/2023 10:09 AM BOX CLOSING MACHINE OPERATOR): He needs to continue efforts at weight [...] 25.0. Assessment & Plan (05/26/2022 10:59 AM BOX CLOSING MACHINE OPERATOR): He needs to continue efforts at weight [...] 25.0. Assessment & Plan (05/12/2021 9:28 AM BOX CLOSING MACHINE OPERATOR): He needs to continue efforts at weight [...] 25.0. Assessment & Plan (05/20/2020 2:05 PM BOX CLOSING MACHINE OPERATOR): BMI Follow-up includes: nutrition counseling and exercise counseling. Assessment & Plan (05/04/2020 12:09 PM BOX CLOSING MACHINE OPERATOR): BMI Follow-up includes: nutrition counseling and exercise [...] 10 Assessment & Plan (03/21/2024 10:20 AM BOX CLOSING MACHINE OPERATOR): To continue to efforts at getting 4-5 servings of fruits and/or vegetables a day. A fasting lipid profile will be checked today. Assessment & Plan (02/19/2023 10:09 AM BOX CLOSING MACHINE OPERATOR): To continue to efforts at getting 4-5 [...] today. Assessment & Plan (05/12/2021 9:23 AM BOX CLOSING MACHINE OPERATOR): To continue to efforts at getting 4-5 servings of fruits and/or vegetables a day. Assessment & Plan (11/09/2020 11:12 AM CDT): To continue to efforts at getting 4-5 servings of fruits and/or vegetables a day. A fasting lipid profile will be checked today. Assessment & Plan (05/04/2020 12:08 PM BOX CLOSING MACHINE OPERATOR): Continue statin Assessment & Plan (11/03/2019 2:06 [...] 320/25 Assessment & Plan (03/21/2024 10:19 AM BOX CLOSING MACHINE OPERATOR): The blood pressure is adequately controlled. Ideally, [...] weeks. Assessment & Plan (02/19/2023 10:08 AM BOX CLOSING MACHINE OPERATOR): The blood pressure is adequately controlled. Ideally, [...] weeks. Assessment & Plan (05/26/2022 11:18 AM BOX CLOSING MACHINE OPERATOR): He is likely having a reaction to [...] week. Assessment & Plan (05/12/2021 9:26 AM BOX CLOSING MACHINE OPERATOR): The blood pressure is a little high [...] week. Assessment & Plan (05/20/2020 2:06 PM BOX CLOSING MACHINE OPERATOR): The blood pressure is under fair control. [...] stress. Assessment & Plan (05/05/2020 1:50 PM BOX CLOSING MACHINE OPERATOR): The blood pressure is under good control. [...] today. Assessment & Plan (04/06/2020 2:07 PM BOX CLOSING MACHINE OPERATOR): BP is on the low side today [...] virus infection 04/12/202008/2021 Overview (05/20/2020): 03/24/20: To [facility] for COVID PNA and had fall. CT [...] better Assessment & Plan (05/20/2020 2:05 PM BOX CLOSING MACHINE OPERATOR): Now off O2 and Sats staying at 95-97% on RA Going to have more lung testing through pulm. Assessment & Plan (05/05/2020 1:48 PM BOX CLOSING MACHINE OPERATOR): Saturation on RA is 95% at rest and 90% with activity - is going to f/u with Pulmonology in 2 weeks. Feeling better. No changes Encounter for support and co ordination of transition of care 04/06/2020 11/09/2020 Overview (04/06/2020): 03/23/20: Pt fell at home = EMT called and took [facility] to [facility]. D/C 04/01/20 - to home. In the hospital: Dx with COVID - started on O2 - up to 4 LPM. 04/06/20: Spoke with patient today: 4 LPM Came home on 96-97% SaO2 - even with activity Steroids at home - finished these - dexamethasone 6 mg 5 pills. Still no taste or smell Azithromycin at the start. Pulm doctor: Molly Lane ([place]) - [phone] [place] Assessment & Plan (04/06/2020 1:05 PM BOX CLOSING MACHINE OPERATOR): He is stable today He has finished [...] fluids and nutrition Waiting for records from [place] Immunizations Immunization Administration Dates Next Due Influenza, [...] (Arexvy) 04/10/2023 Tdap 12/06/2021,12/01/2020,11/03/2010 ZOSTER Recombinant 02/16/2022,12/06/2021 Social History Tobacco Use Types Packs/Day Years [...] often do you attend chur ch or holiness services? Never 11/13/2022 Do you belong to any clubs o r organizations such as taoist groups, unions, fraternal or athletic groups, or [...] place to sleep or slept in a senior living (including now)? No 11/13/2022 Personal Safety Answer Date Recorded Have you ever been in or are you currently in a harmful physical or emotional relationship or is someone making you feel afraid or unsafe? Denies 12/06/2022 Sex and Gender Information Value Date Recorded Sex Assigned at Not on file Legal Sex Male 8:53 AM BOX CLOSING MACHINE OPERATOR Gender Identity Male 06/28/2020 10:01 AM CDT Sexual Orientation Not on file Last Filed Vital Signs Vital Sign Reading Time Taken Comments Blood Pressure 134/74 03/21/2024 10:06 AM BOX CLOSING MACHINE OPERATOR Pulse 72 03/21/2024 10:06 AM BOX CLOSING MACHINE OPERATOR Temperature 36.9 C (98.4 F) 12/06/2022 11:16 AM CDT Respiratory Rate 18 12/06/2022 11:16 AM CDT Oxygen Saturation 97% 12/06/2022 2:35 PM CDT Inhaled Oxygen Concentration - - Weight 115.2 kg (254 lb) 03/21/2024 10:06 AM BOX CLOSING MACHINE OPERATOR Height 175.3 cm (5' 9 ) 03/21/2024 10:06 AM BOX CLOSING MACHINE OPERATOR Body Mass Index 37.51 03/21/2024 10:06 AM BOX CLOSING MACHINE OPERATOR Plan of Treatment Not on file Insurance [employer] INSURANCE [employer] MEDICARE [employer] MEDIC[employer] Advance Directives For more information, please contact: [phone] * Full Code (Latest Code Status on File) Date Activated Date Inactivated Comments 11/12/2022 10:45 PM 11/14/2022 6:04 PM * Full Code Date Activated Date Inactivated Comments 11/26/2018 8:04 AM 11/26/2018 1:47 PM Care Teams Tc Operator Relationship Specialty Start Date End Date Jarek Armenta MD PCP - General 07/14/16
--- OUTSIDE RECORDS SUMMARY | 2024-07-23 04:19 | XMS_ITS | Data Portability ---
Author Organization [place] - [facility] [employer] [facility] Main Office Address [address] [place] [address] Care Team Providers Care Software Publisher Name Role Phone KARLOSLEO Primary Care Provider [phone] KARLOS LEO Referring Provider [phone] Assessment Encounter Date Assessment Date Assessment LastModified by Organization Details LastModified Time 03/05/2023 03/05/2023 HPI: 82-year-old male patient who presents today for evaluation of his right anterior knee pain. Started having this anterior knee pain little more than months ago. Originally started as medial clean pain. He has been in the hospital that both [facility] and at [facility]. He has been evaluated by multiple people at both hospitals. Initially they thought this may be hernia or kidney stones. He has been thoroughly evaluated and nothing was found. Groin pain has subsequently gone away. He has however developed anterior knee pain on the right. This started spontaneously while all this process was going on. He is not recall any injury or trauma that started the pain. All the pain is directly over the patella and the holds the patella where he feels it. He does not feel any pain in the medial or lateral aspect of the knee. He is having no groin pain or anterior lateral hip pain. There is no back pain. Patient saw Dr. Saab on 02/01 and received cortisone injection in the right and therapy was ordered. He states that he does not recall getting any benefit from the injection. He does not recall having any benefit for an hour or 2 after the injection from the lidocaine that was in the injection. I do have Dr. Saab's note and verified he use 2 cc of 1% lidocaine. And again patient got no benefit from the injection. Patient does not take any anti-inflammatori es at this point. He was advised to avoid them due to possible side effects. He has had no intolerance to taking anti-inflammatori es in the past and has no ulcer history. Patient had x-rays done of his hips and his knees that he brought in today. Both his hips look very normal without arthritic changes. X-rays of his knees show that he has moderate patellofemoral osteoarthritis the right knee seen on sunrise view mostly in the medial facet. He has some very mild narrowing of the medial lateral compartment in the left knee on the AP view. Mediolateral compartment on the right on the AP view is very normal. Physical exam: 82-year-old male alert pleasant. He is 5 ft 8 249 lb BMI is 37.9. He does have mild tremors. He has had these long time. States his pain is about a 7 or 8 when he walked in. He is able to get up on the exam with minimal help. He has a ngex-as-upjvvmcs effusion right knee. He has severe pain with patellofemoral grind. He has no medial or lateral joint line tenderness. No redness warmth noted. He a has range of motion from 12-125 degrees. He has about same flexion contracture of the left knee. He walks without assistance. His hip has full range of motion without discomfort. He flexes to 120 externally rotates to 40 internally rotates to 20 again without discomfort. Negative Stinchfield maneuver. Trace edema in both lower extremities. After ChloraPrep used on skin 20 mg Kenalog and 3 cc of 0.5% ropivacaine was injected into the right knee. Immediately after the injection patient noted almost all of his pain was gone. He is able get up walk in the exam room without discomfort. He is able get up from a seated position without any discomfort. He states he did not have this type of improvement following his injection 1 month ago. Impression: 82-year-old male who has umhe-jl-pqcaeoyg patellofemoral osteoarthritis the right knee. This was aggravated while he was being evaluated and dealing with groin pain. He had a shot 1 month ago and had no benefit even from the numbing agent. There is always a possibility that this did not get into the joint itself. I offered him another cortisone injection in the knee. His arthritis is by no means severe. He wanted to proceed with the injection and tolerated it well. Risk of infection was discussed. Again he was almost completely asymptomatic after the injection. Hopefully this will take care of his problem. We will make an appointment come back in 2 weeks for re-evaluation. If he is doing very well he will call and cancel. If he has continued symptoms then the next step I think might be MRI scan of the knee. Not available 03/05/2023 14:56:32 05/11/2023 05/11/2023 HPI: Patient returns. I saw him in February of last year for pain in the right knee. He had a cortisone injection which helped dramatically. At this point he is complaining pain in left knee. This started about 1 month ago. He points directly to the lateral joint line where he feels the discomfort. He does not recall any activity or injury that may have started the discomfort. He has intermittent pain in his knee. He does not have pain every day. He will take occasional Tylenol for the discomfort. If he has not had prior problems with the knee. Physical exam: 82-year-old male very alert pleasant. He walks very well today without limp or assistance. He has a mild effusion in the left knee. Moderate tenderness over the lateral joint line palpation. Range of motion is from 5-135 degrees. Hip range of motion is full without discomfort. Minimal pain with patellofemoral grind. No medial joint line tenderness. He has mild edema in the left lower extremity. No redness or warmth noted. 2+ dorsalis pedis pulse. After ChloraPrep was used in the skin 20 mg Kenalog and 3 cc of 0.5% ropivacaine was injected into the left knee. Impression: 82-year-old male who has mild lateral compartment osteoarthritis seen on the x-rays today. His symptoms correlate with the area of arthritis in the knee. Patient states he would like to have a cortisone injection in left knee because it helped her right knee swelled dramatically last February and I think this is very reasonable option. He tolerated the injection well. If he does not get satisfactory improvement he will call otherwise will plan on seeing him back as needed. 20 minutes was spent and treatment of the patient more than half of this in [id number] conversation Not available 05/11/2023 11:38:39 Plan of Treatment Reminders Order Date Submit Date Provider Last Modified By Organization Details Last Modified Time Details Appointments None recorded. Lab None recorded. Referral None recorded. Procedures injection/a spiration joint/bursa (PROC) - in office procedure, administere d by provider 2023 024 [email or web address] In-Office Order, Internal Use Only DO Not Attach Compendium DO Not Attach Compendium, Do Not Delete/merge, [id number] 11:30:49 injection/a spiration joint/bursa (PROC) - in office procedure, administere d by provider 2022 023 [email or web address] In-Office Order, Internal Use Only DO Not Attach Compendium DO Not Attach Compendium, Do Not Delete/merge, [id number] 14:34:42 Surgeries None recorded. Imaging XR, knee 2023 024 [email or web address] [place], [address], [place], [address], 4 15:31:19 Medication Orders Kenalog 10 mg/mL suspension for injection 2023 024 [id number], [address] [place], [place], [id number], 4 11:40:38 ropivacaine (PF) 5 mg/mL (0.5 %) injection solution 2023 024 [facility] #[id number], [address] [place], [place], [id number], 4 11:40:38 Kenalog 10 mg/mL suspension for injection 2022 023 [id number], [address] [place], [place], [id number], 3 10:41:15 ropivacaine (PF) 5 mg/mL (0.5 %) injection solution 2022 023 [email or web address] #[id number], [address] [facility] [place] [place], [id number], 3 10:41:15 Patient TargetsNo targets recorded. Patient InstructionsNo instructions recorded. Reason for Referral None Reported. Results Created Date Observation Date Name Description Value Unit Range Abnormal Flag Note LastModifiedBy Organization Detail LastModifiedTime 05/11/19 24 XR, knee No observ ation record ed. [email or web address] [facility] [place] [address], [place], [address], 05/11/2023 11:36:27 Result Notes None recorded. Problems Name Problem SNOMED Code Status Onset Date Resolution Date Notes Provider Name and Address Organization Details Recorded Time Pain of right knee joint 4573487798279 00 Active 2022 KERRY Obando, [facility] 3 14:03:47 Pain of left knee joint 8029035905669 07 Active 2023 KERRY Obando, [facility] 4 10:57:27 Labile essential hypertensio n 098011056 Active 2023 KERRY Obando, [facility] 4 11:22:13 Problem Notes None recorded. Procedures Surgical History Date Name Laterality Status Provider Name and Address Organization Details Recorded Time Knee Surgery completed KERRY Obando [facility] 03/05/2023 14:02:40 Rotator cuff surgery completed KERRY Obando [facility] 03/05/2023 14:03:10 Imaging Results Imaging Date Name Status LastModified by Organiz ation Details LastModified Time 05/11/2023 XR, knee completed [email or web address] [place] [address], [place], [address], 05/11/2023 11:36:27 Procedure Notes None recorded. Medical Equipment None Reported. Allergies No known drug allergies Medications Name Sig Start Date Stop Date Status Note LastModified by Organization Details LastModified Time amoxicillin 500 mg capsule TAKE 1 CAPSULE BY MOUTH THREE TIMES DAILY FOR 7 DAYS 03/05 completed Not Available Not Available Not Available atorvastatin 10 mg tablet active Not Available Not Available Not Available propranolol ER 60 mg capsule,24 hr,extended release active Not Available Not Available Not Available valsartan 160 mg-hydrochlo rothiazide 12.5 mg tablet TAKE 1 TABLET BY MOUTH DAILY 03/05 completed Not Available Not Available Not Available ciprofloxaci n 500 mg tablet TAKE 1 TABLET BY MOUTH TWICE DAILY 03/05 completed Not Available Not Available Not Available tamsulosin 0.4 mg capsule TAKE 1 CAPSULE BY MOUTH AT BEDTIME 03/05 completed Not Available Not Available Not Available Kenalog 10 mg/mL suspension for injection in office 2023 active [facility]: 0003- [id number]- 20 Not Available Not Available Not Available amlodipine 10 mg tablet 03/05 completed Not Available Not Available Not Available valsartan 160 mg tablet active Not Available Not Available Not Available valsartan 320 mg-hydrochlo rothiazide 25 mg tablet TAKE 1 TABLET BY MOUTH DAILY 03/05 completed Not Available Not Available Not Available ropivacaine (PF) 5 mg/mL (0.5 %) injection solution in office 2023 active Not Available Not Available Not Avai lable Vitals Date Recorded Body height Body mass index (BMI) Body weight Provider Name and Address Organization Details Last Updated DateTime 03/05/2023 172.72 cm 37.9 kg/m2 162631.5 g KERRY Obando [facility] 03/05/2023 14:07:20 Date Recorded Body height Provider Name an d Address Organization Details Last Updated DateTime 05/11/2023 172.72 cm KERRY Obando [facility] 05/11/2023 10:56:37 Social History Question Answer Notes LastModified by Organizat ion Details LastModified Time Tobacco Smoking Status [facility] 03/05/2023 14:02:22 What Is Your Level Of Alcohol Consumption? Occasional [email or web address] Information not available 03/05/2023 Sex: Unknown Functional Status None recorded. Mental Status None recorded. Family History Nothing Reported. Medical History Condition Response BLINDNESS N KIDNEY STONES N CARPAL TUNNEL SYNDROME N MRSA N LUNG DISEASE/DISORDER N HISTORY OF DRUG ABUSE N RADIATION / CHEMOTHERAPY N COPD N SPORTS INJURY N ANKLE PAIN N BLOOD DISEASES N PAST SPINAL SURGERY N SCHIZOPHRENIA N SHINGLES N SHOULDER PAIN N BOWEL PROBLEMS N DEPRESSION (INCLUDING POST ) N FAILED BACK SYNDROME N STROKE/TIA N ULCERS N OTHER MODALITIES N KNEE PAIN N BENIGN PROSTATIC HYPERPLASIA N OBESITY N GERD/NAUSEA N ANEURYSM N URINARY/BLADDER/KIDNEY PROBLEMS N CORONARY ARTERY DISEASE (CAD) N Do you have Advance directive? N ADDICTION CONCERNS N USE OF BLOOD THINNERS N SKIN PROBLEMS N EMPHYSEMA N MUSCLE,JOINT OR BONE PROBLEMS N DVT N STOMACH ULCERS N BLOOD CLOTS N PAST HISTORY OF VEHICULAR ACCIDENT N USE OF NSAIDS N CONCUSSION OR SPINAL TRAUMA N ARTERIAL INSUFFICIENCY N NEUROPATHY N AIDS/HIV N FRACTURES N HYPERTENSION N ELBOW PAIN N TOURETTE'S N Metal allergy N ANXIETY DISORDER N BLOOD TRANSFUSION N ANEMIA/BLOOD DISORDER N BIPOLAR DISORDER N BRONCHITIS N OSTEOARTHRITIS N TUBERCULOSIS N FOOT PROBLEM N HEART VALVE DISORDERS N SLEEP APNEA N SOFT TISSUE INJURY N ALLERGIES/HAYFEVER N BACK INJECTIONS N INFECTIOUS DISEASE N HEART ARRHYTHMIA N ESRD N INSOMNIA N PAST INTERVENTIONAL PAIN MANAGEMENT HIST ORY N RHEUMATOID ARTHRITIS N HIGH CHOLESTEROL / HYPERLIPIDEMIA N PAST MEDICATION HISTORY N PVD N EDEMA N CHRONIC PAIN SYNDROME N CAROTID BLOCKAGE N BACK / NECK PROBLEMS N HAVE YOU BEEN HOSPITALIZED OR SEEN IN [facility] ER IN THE PAST YEAR ? N BURSITIS N HERNIATED DISC N DIALYSIS N POLYCYSTIC OVARIES N FIBROMYALGIA N OSTEOPOROSIS N ARTHRITIS N RESPIRATORY PROBLEMS N NO SIGNIFICANT PAST MEDICAL HISTORY N PAST HISTORY OF FALL N PERIPHERAL NEUROPATHY N DIABETES, TYPE N VON WILLIBRAND'S DISEASE N HEARTBURN / REFLUX N HEPATITIS / LIVER DISEASE N POST LAMINECTOMY SYNDROME N GOUT N SLEEP DISORDER N ALZHEIMER'S DISEASE N HERPES N SEIZURES/EPILEPSY N HEADACHES/MIGRAINES N VASCULAR DISEASE N Blood Disorder N HIP PAIN N DIZZINESS N HEAD TRAUMA OR INJURY N HEART DISEASE/HEART PROBLEMS N MULTIPLE SCLEROSIS N NEUROPSYCHOLOGICAL N CANCER: SPECIFY N CARDIAC ARRHYTHMIA N ANESTHESIA COMPLICATIONS N ATRIAL FIBRILLATION N AUTOIMMUNE DISEASE N Past Encounters Encounter ID Performer Location Encounter Start Date Encounter Closed Date Diagnosis/Indication Diagnosis SNOMED-CT Code Diagnosis ICD10 Code Diagnosis Note [id number] ANDREW Rosas [facility] [place] [address] [place] [address] 03/05/2023 13:31:51 03/05/2023 15:19:39 Pain of right knee joint [id number] 38647 M25.155 [id number] ANDREW Rosas [facility] [place] [address] [facility] [address] [place] [address] 05/11/2023 10:32:08 05/11/2023 11:56:51 Pain of left knee joint 6513515064 26277 M25.562 Health Concerns Section Related Observation LastModified by Organization Detai ls LastModified Time None Recorded Concern Status LastModified by Organization Details LastModified Time None Recorded Advance Directives Directive None Recorded Payers Encounter Date Sequence Insurance Name Policy Number Policy Avendano Covered Member ID Avendano Member ID Guarantor Name 03/05/2023 1 [place] Ivan Oconnor [id number] Ivan Oconnor 03/05/2023 2 [employer] (MEDICARE SUPPLEMENT) Ivan Oconnor [id number] Ivan Oconnor 05/11/2023 1 [place] Ivan Oconnor [id number] Ivan Oconnor 05/11/2023 2 [employer] (MEDICARE SUPPLEMENT) Ivan Oconnor [id number] Ivan Oconnor
[2024-07-23 04:24] VITALS: BP 174/82; PULSE 73; RESP 16; O2SAT 94
[2024-07-23] MEDS: ACETAMINOPHEN 500 MG TABLET 1000 MG PO (05:35)
[2024-07-23 05:49] LABS: Uric Acid 9.7 mg/dL (3.5-8.5)
--- OUTSIDE RECORDS SUMMARY | 2024-07-23 06:00 | XMS_ITS | Encounter Summary ---
Author Organization [facility] Address [address] [place] [address] Phone Care Team Providers Care Tetryl Wringer Operator Name Role Phone Jarek Armenta MD Primary Care Provider [phone] Nuvia Mcmanus MA Unavailable [phone] Encounter Details Date Type Department Care Team (Late st Contact Info) Description 07/12/2017 Orders Only [facility] ProviderIris MD [address] [place] [id number] Social History Tobacco Use Types Packs/Day Years Used Date Smoking Tobacco: Never Smokeless Tobacco: Never Alcohol Use Standard Drinks/Week Comments Yes 0 (1 standard drink = 0.6 oz pur e alcohol) Sex and Gender Information Value Date Recorded Sex Assigned at Not on file Legal Sex Male 8:53 AM GRIPS Gender Identity Male 06/28/2020 10:01 AM CDT [...] documented as of this encounter Care Teams Tetryl Wringer Operator Relationship Specialty Start Date End Date Jarek Armenta MD PCP - General 07/14/16 Nuvia Mcmanus MA [address] [place] [address] DR MEJIA [address] [place] [address] [employer] Operator 11/15/22 11/16/22 documented as of this encounter
--- OUTSIDE RECORDS SUMMARY | 2024-07-23 06:00 | XMS_ITS | Clinical Summary ---
Author Organization [facility] Address [address] [place] [address] Care Team Providers Care Field Property Loss Specialist Name Role Phone Jarek Armenta MD Primary Care Provider Allergies Active Allergy Reactions Criticality Noted Date Comments Amlodipine Swelling Medium 05/26/2022 Medications multivit wlycbpke-lqbz-A A-calcium (THERA-M) 9 mg iron-400 mcg tabletIndicatio [...] DNR/DNI. Assessment & Plan (03/21/2024 10:35 AM AERIAL ERECTOR): Advance Care Planning Advance Care Planning Conversation [...] Martinez Assessment & Plan (02/19/2023 10:33 AM AERIAL ERECTOR): Would like an opinion from an orthopedist. Will refer to Dr. Martinez. 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 IFG (impaired fasting glucose) 11/21/2021 Overview (11/21/2021): 8 A1C 6.2% Assessment & Plan (03/21/2024 10:20 AM AERIAL ERECTOR): The hemoglobin A1C level will be checked today. Discussed the importance of continuing to exercise regularly (at least four days a week) and to watch the intake of simple sugars and carbs. Alcohol should be limited to no more than 4-6 servings a week. Assessment & Plan (02/19/2023 10:08 AM AERIAL ERECTOR): The hemoglobin A1C level will be checked [...] BP Assessment & Plan (05/20/2020 2:07 PM AERIAL ERECTOR): Tremor improved with Propranolol LA - continue Assessment & Plan (05/05/2020 1:51 PM AERIAL ERECTOR): Worse since COVID infection Starting propranolol LA Needs f/u in 2 weeks. Medicare annual wellness visit, subsequent 07/12 Assessment & Plan (03/21/2024 10:19 AM AERIAL ERECTOR): Please see below for a list of your medical conditions and recommendations. Assessment & Plan (02/19/2023 10:08 AM AERIAL ERECTOR): Please see below for a list of [...] 07/12/2017 Assessment & Plan (03/21/2024 10:20 AM AERIAL ERECTOR): He needs to continue efforts at weight [...] 25.0. Assessment & Plan (02/19/2023 10:09 AM AERIAL ERECTOR): He needs to continue efforts at weight [...] 25.0. Assessment & Plan (05/26/2022 10:59 AM AERIAL ERECTOR): He needs to continue efforts at weight [...] 25.0. Assessment & Plan (05/12/2021 9:28 AM AERIAL ERECTOR): He needs to continue efforts at weight [...] 25.0. Assessment & Plan (05/20/2020 2:05 PM AERIAL ERECTOR): BMI Follow-up includes: nutrition counseling and exercise counseling. Assessment & Plan (05/04/2020 12:09 PM AERIAL ERECTOR): BMI Follow-up includes: nutrition counseling and exercise [...] 10 Assessment & Plan (03/21/2024 10:20 AM AERIAL ERECTOR): To continue to efforts at getting 4-5 servings of fruits and/or vegetables a day. A fasting lipid profile will be checked today. Assessment & Plan (02/19/2023 10:09 AM AERIAL ERECTOR): To continue to efforts at getting 4-5 [...] today. Assessment & Plan (05/12/2021 9:23 AM AERIAL ERECTOR): To continue to efforts at getting 4-5 servings of fruits and/or vegetables a day. Assessment & Plan (11/09/2020 11:12 AM CDT): To continue to efforts at getting 4-5 servings of fruits and/or vegetables a day. A fasting lipid profile will be checked today. Assessment & Plan (05/04/2020 12:08 PM AERIAL ERECTOR): Continue statin Assessment & Plan (11/03/2019 2:06 [...] 320/25 Assessment & Plan (03/21/2024 10:19 AM AERIAL ERECTOR): The blood pressure is adequately controlled. Ideally, [...] weeks. Assessment & Plan (02/19/2023 10:08 AM AERIAL ERECTOR): The blood pressure is adequately controlled. Ideally, [...] weeks. Assessment & Plan (05/26/2022 11:18 AM AERIAL ERECTOR): He is likely having a reaction to [...] week. Assessment & Plan (05/12/2021 9:26 AM AERIAL ERECTOR): The blood pressure is a little high [...] week. Assessment & Plan (05/20/2020 2:06 PM AERIAL ERECTOR): The blood pressure is under fair control. [...] stress. Assessment & Plan (05/05/2020 1:50 PM AERIAL ERECTOR): The blood pressure is under good control. [...] today. Assessment & Plan (04/06/2020 2:07 PM AERIAL ERECTOR): BP is on the low side today [...] virus infection 04/12/202008/2021 Overview (05/20/2020): 03/24/20: To [facility] for COVID PNA and had fall. CT [...] better Assessment & Plan (05/20/2020 2:05 PM AERIAL ERECTOR): Now off O2 and Sats staying at 95-97% on RA Going to have more lung testing through pulm. Assessment & Plan (05/05/2020 1:48 PM AERIAL ERECTOR): Saturation on RA is 95% at rest and 90% with activity - is going to f/u with Pulmonology in 2 weeks. Feeling better. No changes Encounter for support and co ordination of transition of care 04/06/2020 11/09/2020 Overview (04/06/2020): 03/23/20: Pt fell at home = EMT called and took him to [facility]. D/C 04/01/20 - to home. In the hospital: Dx with COVID - started on O2 - up to 4 LPM. 04/06/20: Spoke with patient today: 4 LPM Came home on 96-97% SaO2 - even with activity Steroids at home - finished these - dexamethasone 6 mg 5 pills. Still no taste or smell Azithromycin at the start. Pulm doctor: Molly Lane ([facility]) - [phone] [facility] Assessment & Plan (04/06/2020 1:05 PM AERIAL ERECTOR): He is stable today He has finished [...] fluids and nutrition Waiting for records from [facility] Immunizations Immunization Administration Dates Next Due Influenza, [...] COVID-19 virus infection 04/12/2020 03/24/20 : To [facility] for COVID PNA and had fall. CT [...] often do you attend chur ch or oriental orthodox services? Never 11/13/2022 Do you belong to any clubs o r organizations such as muslim groups, unions, fraternal or athletic groups, or [...] place to sleep or slept in a fci (including now)? No 11/13/2022 Personal Safety Answer Date Recorded Have you ever been in or are you currently in a harmful physical or emotional relationship or is someone making you feel afraid or unsafe? Denies 12/06/2022 Sex and Gender Information Value Date Recorded Sex Assigned at Not on file Legal Sex Male 8:53 AM AERIAL ERECTOR Gender Identity Male 06/28/2020 10:01 AM CDT Sexual Orientation Not on file Obstetrics History Last Filed Vital Signs Vital Sign Reading Time Taken Comments Blood Pressure 134/74 03/21/2024 10:06 AM AERIAL ERECTOR Pulse 72 03/21/2024 10:06 AM AERIAL ERECTOR Temperature 36.9 C (98.4 F) 12/06/2022 11:16 AM CDT Respiratory Rate 18 12/06/2022 11:16 AM CDT Oxygen Saturation 97% 12/06/2022 2:35 PM CDT Inhaled Oxygen Concentration - - Weight 115.2 kg (254 lb) 03/21/2024 10:06 AM AERIAL ERECTOR Height 175.3 cm (5' 9 ) 03/21/2024 10:06 AM AERIAL ERECTOR Body Mass Index 37.51 03/21/2024 10:06 AM AERIAL ERECTOR Plan of Treatment Health Maintenance Due Date [...] exists Hepatitis B Screening Completed 03/21/2024 Insurance [employer] [place] [address] [employer] MEDICARE [facility] Address: [address] [address] [employer] Advance Directives For more information, please contact: [phone] * Full Code (Latest Code Status on File) Date Activated Date Inactivated Comments 11/12/2022 10:45 PM 11/14/2022 6:04 PM * Full Code Date Activated Date Inactivated Comments 11/26/2018 8:04 AM 11/26/2018 1:47 PM Care Teams Field Property Loss Specialist Relationship Specialty Start Date End Date Jarek Armenta MD [facility] - General 07/14/16
--- OUTSIDE RECORDS SUMMARY | 2024-07-23 06:00 | XMS_ITS | Referral Summary ---
Author Organization [facility] Address [address] [place] [address] Care Team Providers Care Steel Heater Name Role Phone Jarek Armenta MD Primary Care Provider Allergies Active Allergy Reactions Criticality Noted Date Comments Amlodipine Swelling Medium 05/26/2022 Medications multivit ngqlmnid-wlsj-L A-calcium (THERA-M) 9 mg iron-400 mcg tabletIndicatio [...] DNR/DNI. Assessment & Plan (03/21/2024 10:35 AM LIVESTOCK COMMISSION AGENT): Advance Care Planning Advance Care Planning Conversation [...] Martinez Assessment & Plan (02/19/2023 10:33 AM LIVESTOCK COMMISSION AGENT): Would like an opinion from an orthopedist. Will refer to Dr. Martinez. 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 IFG (impaired fasting glucose) 11/21/2021 Overview (11/21/2021): 8 A1C 6.2% Assessment & Plan (03/21/2024 10:20 AM LIVESTOCK COMMISSION AGENT): The hemoglobin A1C level will be checked today. Discussed the importance of continuing to exercise regularly (at least four days a week) and to watch the intake of simple sugars and carbs. Alcohol should be limited to no more than 4-6 servings a week. Assessment & Plan (02/19/2023 10:08 AM LIVESTOCK COMMISSION AGENT): The hemoglobin A1C level will be checked [...] BP Assessment & Plan (05/20/2020 2:07 PM LIVESTOCK COMMISSION AGENT): Tremor improved with Propranolol LA - continue Assessment & Plan (05/05/2020 1:51 PM LIVESTOCK COMMISSION AGENT): Worse since COVID infection Starting propranolol LA Needs f/u in 2 weeks. Medicare annual wellness visit, subsequent 07/12 Assessment & Plan (03/21/2024 10:19 AM LIVESTOCK COMMISSION AGENT): Please see below for a list of your medical conditions and recommendations. Assessment & Plan (02/19/2023 10:08 AM LIVESTOCK COMMISSION AGENT): Please see below for a list of [...] 07/12/2017 Assessment & Plan (03/21/2024 10:20 AM LIVESTOCK COMMISSION AGENT): He needs to continue efforts at weight [...] 25.0. Assessment & Plan (02/19/2023 10:09 AM LIVESTOCK COMMISSION AGENT): He needs to continue efforts at weight [...] 25.0. Assessment & Plan (05/26/2022 10:59 AM LIVESTOCK COMMISSION AGENT): He needs to continue efforts at weight [...] 25.0. Assessment & Plan (05/12/2021 9:28 AM LIVESTOCK COMMISSION AGENT): He needs to continue efforts at weight [...] 25.0. Assessment & Plan (05/20/2020 2:05 PM LIVESTOCK COMMISSION AGENT): BMI Follow-up includes: nutrition counseling and exercise counseling. Assessment & Plan (05/04/2020 12:09 PM LIVESTOCK COMMISSION AGENT): BMI Follow-up includes: nutrition counseling and exercise [...] 10 Assessment & Plan (03/21/2024 10:20 AM LIVESTOCK COMMISSION AGENT): To continue to efforts at getting 4-5 servings of fruits and/or vegetables a day. A fasting lipid profile will be checked today. Assessment & Plan (02/19/2023 10:09 AM LIVESTOCK COMMISSION AGENT): To continue to efforts at getting 4-5 [...] today. Assessment & Plan (05/12/2021 9:23 AM LIVESTOCK COMMISSION AGENT): To continue to efforts at getting 4-5 servings of fruits and/or vegetables a day. Assessment & Plan (11/09/2020 11:12 AM CDT): To continue to efforts at getting 4-5 servings of fruits and/or vegetables a day. A fasting lipid profile will be checked today. Assessment & Plan (05/04/2020 12:08 PM LIVESTOCK COMMISSION AGENT): Continue statin Assessment & Plan (11/03/2019 2:06 [...] 320/25 Assessment & Plan (03/21/2024 10:19 AM LIVESTOCK COMMISSION AGENT): The blood pressure is adequately controlled. Ideally, [...] weeks. Assessment & Plan (02/19/2023 10:08 AM LIVESTOCK COMMISSION AGENT): The blood pressure is adequately controlled. Ideally, [...] weeks. Assessment & Plan (05/26/2022 11:18 AM LIVESTOCK COMMISSION AGENT): He is likely having a reaction to [...] week. Assessment & Plan (05/12/2021 9:26 AM LIVESTOCK COMMISSION AGENT): The blood pressure is a little high [...] week. Assessment & Plan (05/20/2020 2:06 PM LIVESTOCK COMMISSION AGENT): The blood pressure is under fair control. [...] stress. Assessment & Plan (05/05/2020 1:50 PM LIVESTOCK COMMISSION AGENT): The blood pressure is under good control. [...] today. Assessment & Plan (04/06/2020 2:07 PM LIVESTOCK COMMISSION AGENT): BP is on the low side today [...] virus infection 04/12/202008/2021 Overview (05/20/2020): 03/24/20: To [facility] for COVID PNA and had [...] better Assessment & Plan (05/20/2020 2:05 PM LIVESTOCK COMMISSION AGENT): Now off O2 and Sats staying at 95-97% on RA Going to have more lung testing through pulm. Assessment & Plan (05/05/2020 1:48 PM LIVESTOCK COMMISSION AGENT): Saturation on RA is 95% at rest and 90% with activity - is going to f/u with Pulmonology in 2 weeks. Feeling better. No changes Encounter for support and co ordination of transition of care 04/06/2020 11/09/2020 Overview (04/06/2020): 03/23/20: Pt fell at home = EMT called and took him to [facility]. D/C 04/01/20 - to home. In the hospital: Dx with COVID - started on O2 - up to 4 LPM. 04/06/20: Spoke with patient today: 4 LPM Came home on 96-97% SaO2 - even with activity Steroids at home - finished these - dexamethasone 6 mg 5 pills. Still no taste or smell Azithromycin at the start. Pulm doctor: Molly Lane ([place]) - [phone] [place] Assessment & Plan (04/06/2020 1:05 PM LIVESTOCK COMMISSION AGENT): He is stable today He has finished [...] fluids and nutrition Waiting for records from [place] Immunizations Immunization Administration Dates Next Due Influenza, [...] often do you attend chur ch or baptism services? Never 11/13/2022 Do you belong to any clubs o r organizations such as yarsani groups, unions, fraternal or athletic groups, or [...] on file Legal Sex Male 8:53 AM LIVESTOCK COMMISSION AGENT Gender Identity Male 06/28/2020 10:01 AM CDT Sexual Orientation Not on file Last Filed Vital Signs Vital Sign Reading Time Taken Comments Blood Pressure 134/74 03/21/2024 10:06 AM LIVESTOCK COMMISSION AGENT Pulse 72 03/21/2024 10:06 AM LIVESTOCK COMMISSION AGENT Temperature 36.9 C (98.4 F) 12/06/2022 11:16 AM CDT Respiratory Rate 18 12/06/2022 11:16 AM CDT Oxygen Saturation 97% 12/06/2022 2:35 PM CDT Inhaled Oxygen Concentration - - Weight 115.2 kg (254 lb) 03/21/2024 10:06 AM LIVESTOCK COMMISSION AGENT Height 175.3 cm (5' 9 ) 03/21/2024 10:06 AM LIVESTOCK COMMISSION AGENT Body Mass Index 37.51 03/21/2024 10:06 AM LIVESTOCK COMMISSION AGENT Plan of Treatment Not on file Insurance [employer] INSURANCE [email or web address] MEDICARE [employer] Advance Directives For more information, please contact: [phone] * Full Code (Latest Code Status on File) Date Activated Date Inactivated Comments 11/12/2022 10:45 PM 11/14/2022 6:04 PM * Full Code Date Activated Date Inactivated Comments 11/26/2018 8:04 AM 11/26/2018 1:47 PM Care Teams Steel Heater Relationship Specialty Start Date End Date Jarek Armenta MD PCP - General 07/14/16
--- NOTE | 2024-07-23 06:53 | ED_ITS ---
HPI - Extremity Injury (Lower) General Chief Complaint: Extremity Injury, Lower Stated Complaint: i think i broke my ankle Time Seen by Provider: 07/23/24 04:58 Source: patient Mode of arrival: ambulatory Limitations: no limitations History of Present Illness HPI Narrative: This is an 84-year-old male with history of hypertension, who presents to the emergency department complaining of left ankle pain. The patient states he woke from sleep to find the left ankle tender. He describes pain as dull, moderate without radiation, associated fevers or loss of strength/sensation in the foot. He denies any known trauma. He has no other complaints at this time. Related Data Home Medications ?Medication ?Instructions ?Recorded ?Confirmed ?Last Taken ?Type omeprazole magnesium 20 mg 20 mg PO DAILY 04/04/19 08/14/23 04/23/19 History tablet,delayed release (Prilosec OTC) atorvastatin 10 mg tablet 10 mg PO DAILY 03/22/20 08/14/23 Unknown History propranolol 60 mg capsule,24 60 mg PO QAM 07/08/20 08/14/23 Unknown History hr,extended release fntfznwf-am-yccpn 300 mcg-K 60 1 tablet PO DAILY 02/01/23 08/14/23 Unknown History mcg-lycop 600 mcg-lutein 300 mcg tablet (Centrum Silver Men) loratadine 10 mg tablet (Claritin) 10 mg PO DAILY PRN Sinus Symptoms 08/08/23 08/14/23 Unknown History valsartan 320 1 tablet PO QAM 08/08/23 08/14/23 Unknown History mg-hydrochlorothiazide 25 mg tablet Allergies Allergy/AdvReac Type Severity Reaction Status Date / Time No Known Allergies Allergy Verified 07/23/24 04:20 Review of Systems Review of Systems: All systems reviewed & are unremarkable except as noted in HPI and below PMFSH Past Medical History Medical History Hyperlipidemia Fracture of right fibula, shaft Pulmonary fibrosis GERD (gastroesophageal reflux disease) Hypertension Surgical History Surgical History History of arthroscopy of left knee left History of rotator cuff surgery left Family History Family History Unknown Unknown family medical history Mother Cerebrovascular accident Social History Social History Smoking status: Never smoker Alcohol intake: current Drinks per week: 2 Substance use: never Substance use type: does not use Lack of Transportation: No Lack of Food: Never True Current Housing: I Have Housing Concerned About Future Housing: No Difficulty Paying Gas/Electric Bills: No Difficulty Paying for Meds: No Currently Unemployed: No Education: High School Diploma/GED Difficulty w/ Childcare or Family Care: No Living arrangements: with family Additional living arrangements comments: Occupation/Education: retired Gender identity (if verbalized by the patient): Male Spiritual care concerns: No Exam Narrative: GENERAL: Well-developed, well-nourished, and in no acute distress. HEAD: Normocephalic, atraumatic. EYES: PERRLA and EOMI. CHEST: Clear to auscultation. No respiratory distress. No wheezes rales or rhonchi HEART: Regular rate and rhythm. No murmur heard. Normal peripheral pulses. EXTREMITIES: Normal range of motion. No edema. No tenderness to palpation of the left ankle. Left ankle appears slightly swollen compared to the right. There is no noted erythema, induration or mass. SKIN: Warm, dry, no rash. NEURO: Alert and oriented x3. No focal deficit. Moving all 4 limbs spontaneously PSYCH: Normal mood and affect. Course Course Emergency Course: 06:54 - Uric acid elevated at 9.7. X-rays of the foot and ankle negative for fracture, dislocation or obvious changes concerning for infection. The patient on physical exam is not concerning for septic arthritis. I suspect gout as the cause of his pain. He has been advised to avoid ibuprofen or naproxen. He states his pain was improved with oral Tylenol. Will discharge with the same and recommendation for primary care follow-up. I discussed the findings and r ecommendations with the patient. Discussed return and emergency precautions including signs/symptoms of septic arthritis and neurovascular compromise. The patient voiced understanding and agreement with the plan. All questions answered to his satisfaction. Vital Signs Vital signs: Vital Signs Pulse Rate 73 07/23/24 04:24 Respiratory Rate 16 07/23/24 04:24 Blood Pressure 174/82 H 07/23/24 04:24 Pulse Oximetry 94 07/23/24 04:24 Pulse Rate 73 07/23/24 04:24 Respiratory Rate 16 07/23/24 04:24 Blood Pressure 174/82 H 07/23/24 04:24 Pulse Oximetry 94 07/23/24 04:24 MDM - Extremity Injury (Lower) MDM Narrative Medical decision making narrative: Plan: Labs, pain control, imaging, reassess Differential Diagnosis Differential diagnosis: Likely ankle sprain and strain, ankle fracture and other (Gout, mass, arthritis, other) Lab Data Labs: Lab Results 07/23/24 Range/Units 05:31 Uric Acid 9.7 H (3.5-8.5) mg/dL Discharge Plan Discharge Clinical Impression: Acute left ankle pain Gout Qualifiers: Gout site: ankle Gout etiology: unspecified cause Chronicity: acute Laterality: left Qualified Code(s): M10.9 - Gout, unspecified Patient Disposition: Home Condition: Stable Instructions: Antibiotic Form, Gout (ED) Additional Instructions: You were seen in the emergency department. Your x-rays are not concerning for fracture, dislocation or obvious infection. Your labs showed changes consistent with gout. I suspect this is the cause of your pain. I recommend Tylenol for pain, modification of her diet and follow-up with your primary care doctor. If you develop fevers with severe ankle pain and swelling, the angle 5 ft appears blue/cold, or if you have other emergent concerns for life, limb, or eyesight, return to the emergency department. Patient Language: Singaporean Prescriptions: No Action atorvastatin 10 mg tablet 10 mg PO DAILY propranolol 60 mg capsule,extended release 24 hr 60 mg PO QAM Centrum Silver Men [id number] mcg tablet 1 tablet PO DAILY omeprazole magnesium [Prilosec OTC] 20 mg Tablet,Delayed Release (Dr/Ec) 20 mg PO DAILY valsartan-hydrochlorothiazide 320-25 mg tablet 1 tablet PO QAM loratadine [Claritin] 10 mg Tablet 10 mg PO DAILY PRN (Reason: Sinus Symptoms) tramadol 50 mg tablet 50 mg PO Q6H PRN (Reason: pain) Qty: 20 0RF Follow-up/Referrals: Kathi,Jarek Huizar MD [Primary Care Provider] - 2 Weeks Time of Disposition: 06:54
[2024-07-23 07:04] VITALS: BP 169/87; PULSE 84; RESP 18; O2SAT 99
== END 2024-07-23 07:06 | disposition home or self-care (01) ==
PROVIDERS: Emergency Provider Preventive Medicine Aerospace Medicine; PCP Internal Medicine
DX: M10.9 Gout, unspecified (principal); M25.572 Pain in left ankle and joints of left foot; E78.5 Hyperlipidemia, unspecified; K21.9 Gastro-esophageal reflux disease without esophagitis; I10 Essential (primary) hypertension
CPT/HCPCS: 36415; 73610; 73630; 84550; 99283; A9270